=== PATIENT | male | born 1960 | race Caucasian/White ===

== ENCOUNTER 2020-02-25 11:22 | Emergency (ER) | payer SELFPAY ==
[2020-02-25 11:38] VITALS: BP 151/81; PULSE 70; RESP 16; TEMP 36.6; O2SAT 99
--- NOTE | 2020-02-25 11:39 | ED.URI ---
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 Patient states he has a 2-day history of definite fever 100.8 associated with sinus congestion, postnasal drip, myalgias with bitemporal headache. Patient states he was preceded 2 weeks ago by similar symptoms for which he was treated with a Z-Farrukh which ended 2 days ago. At that time he recalls definite loss of taste and smell for 3 to 4 days, for which he had a negative Covid test [which is advised to repeat]. No cough, shortness of breath, CP, sputum changes, vomiting/diarrhea, sneezing/wheezing. The patient agrees, in light of health emergency- in my medical judgement, only a personal was preferable to fully undress & examine the patient exhibiting potential COVID symptoms, in order to limit risk of infection. Related Data Home Medications Medication Instructions Recorded Confirmed lisinopril 30 mg PO DAILY 02/25/20 02/25/20 simvastatin 20 mg PO HS 02/25/20 02/25/20 Allergies Allergy/AdvReac Type Severity Reaction Status Date / Time No Known Allergies Allergy Verified 02/25/20 11:38 Review of Systems Review of Systems: Narrative: General/Constitutional: No weight loss,REPORTS fever Eyes: N0: Redness,discharge Ears/Nose/Throat: No: Epistaxis,ear discharge Respiratory: Denies: Hemoptysis Skin: No Lumps, eruption Hematologic: Denies: Petechiae/Purpura PMFSH Comments At time of signature, agree with nursing past medical, surgical, social and family history. There is no relevant family history pertinent to the presenting complaint Exam Narrative: Exam Narrative: General Appearance: Well appearing, Conjunctiva clear Nose: Rhinorrhea, Mucousal erythema Mouth/Throat: MM moist, Uvula midline, Pharyngeal erythema Supple, No adenopathy Respiratory: No respiratory distress, airway patent Musculoskeletal: Non tender, Warm, Dry Neurological: A&O x3, ,Normal affect Course Vital Signs Vital signs: Vital Signs Temperature 97.8 F 02/25/20 11:38 Pulse Rate 70 02/25/20 11:38 Respiratory Rate 16 02/25/20 11:38 Blood Pressure 151/81 H 02/25/20 11:38 Pulse Oximetry 99 02/25/20 11:38 Temperature 97.8 F 02/25/20 11:38 Pulse Rate 70 02/25/20 11:38 Respiratory Rate 16 02/25/20 11:38 Blood Pressure 151/81 H 02/25/20 11:38 Pulse Oximetry 99 02/25/20 11:38 Discharge Plan Discharge Clinical Impression: Upper respiratory infection Qualifiers: URI type: unspecified URI Qualified Code(s): J06.9 - Acute upper respiratory infection, unspecified Patient Disposition: Home, Self-Care Condition: Stable Instructions: Antibiotic Form, Sinusitis (ED) Prescriptions: New azelastine 137 mcg (0.1 %) aerosol,spray 137 mcg NASAL Q12H Qty: 30 RF: 0 amoxicillin-pot clavulanate [Augmentin] 875-125 mg tablet 1 tablet PO Q12H Qty: 14 RF: 0 tramadol 50 mg tablet 50 mg PO Q6H PRN (Reason: pain) Qty: 15 RF: 1 No Action lisinopril 20 mg Tablet 30 mg PO DAILY RF: 0 simvastatin 20 mg Tablet 20 mg PO HS RF: 0 Other Ambulatory Orders: SARS-CoV-2 RNA, Qual RT-PCR (Routine) Location: Determined by Patient Ordered By: Kyler Cotto Follow-up/Referrals: UNKNOWN,DOCTOR [Primary Care Provider] -
== END 2020-02-25 12:06 | disposition home or self-care (01) ==
PROVIDERS: Emergency Provider Emergency Medicine
DX: J06.9 Acute upper respiratory infection, unspecified (principal); Z20.828 Contact with and (suspected) exposure to other viral communicable diseases; E78.00 Pure hypercholesterolemia, unspecified; I10 Essential (primary) hypertension
CPT/HCPCS: 99203; G0463

== ENCOUNTER 2020-02-26 08:07 | Outpatient (NON) | payer OTHER, SELFPAY ==
[2020-02-26 19:04] LABS: SARS-CoV-2 RNA PCR Negative
== END 2020-02-26 08:08 ==
PROVIDERS: Visit Provider Emergency Medicine
DX: Z20.828 Contact with and (suspected) exposure to other viral communicable diseases (principal); J32.9 Chronic sinusitis, unspecified
CPT/HCPCS: 87635; C9803; U0003

== ENCOUNTER → 2021-04-09 11:01 | Outpatient (CLI) | payer OTHER, SELFPAY ==
--- NOTE | ~2021-04-09 | MR_ITS ---
EXAMINATION: MR knee RT wo con DATE: 04/09/2021 12:06 INDICATION: Unilateral primary osteoarthritis of the right knee with right knee pain TECHNIQUE: Magnetic resonance imaging (MRI) of the right knee was performed without intravenous contr ast. Sequences included coronal PD-weighted FSE, coronal PD-weighted FS FSE, sagittal T2-weighted FS E, sagittal PD-weighted FS FSE and axial PD weighted fat saturated FSE. COMPARISON: None. FINDINGS: Medial compartment: Complex medial meniscal tear including a radial component at the posterior horn as well as and longit udinal component extending into the posterior body. Deep chondral ulceration and fissuring without de generative subchondral changes at the central aspect of the medial tibial plateau and juxtaposed ante rior weightbearing medial femoral condyle. Lateral compartment: Complex tear of the body and posterior horn of the medial meniscus. Large region of full/near full-th ickness chondral ulceration involving the central portion of the anterior and posterior weightbearing lateral femoral condyle. There is fluid signal intensity subarticular eburnation minimal subarticula r increased signal at the central weightbearing lateral femoral condyle. Similar/near full-thickness chondral ulceration involving the posterior half of the lateral tibial plateau with early remodeling of the articular surface which demonstrates subtle concavity and underlying low signal intensity [place]. Moderate size marginal osteophytes are present. Patellofemoral compartment: Partial-thickness chondral ulceration with deep fissuring at the patellar apical ridge and medial shala f lateral facet. Additional extensive chondral ulceration with chondral surface irregularity througho ut the lateral trochlea, most severe laterally superolateral aspect of the lateral trochlea where the re is tiny focus of subarticular edema. Small to moderate-sized marginal osteophytes are present. Ligaments and tendons: Anterior and posterior cruciate ligaments are normal. The medial collateral ligament and fibular chris ateral ligament complex are normal. Patellar tendon is normal. Mild distal quadriceps tendinopathy. T he visualized medial and lateral hamstring tendons as well as the iliotibial band are normal. Fluid: Small right knee joint effusion with mild synovitis at the suprapatellar pouch. No intra-articular lo ose osteochondral bodies identified. There is a loose body within a large Clark's cyst which measures 9.0 x 4.0 x 3.3 cm. Additional 1.4 x 0.9 x 1.2 cm ganglion cyst arising from the lateral compartment extending into the lateral head of the gastrocnemius. Osseous/other: Small bone island at the lateral femoral condyle. No fracture or pathologic marrow replacing process. Mild fatty atrophy in the distal semimembranosus. IMPRESSION: 1. Complex medial and lateral meniscal tears. 2. Tricompartmental osteoarthritis with scattered moderate and high-grade chondromalacia, severe in t he lateral compartment, moderate in the patellofemoral compartment and mild in the medial compartment . 2. Small right knee joint effusion and large Clark's cyst. Reviewed, dictated and finalized at location B. [employer] IMPRESSION: 1. Complex medial and lateral meniscal tears. 2. Tricompartmental osteoarthritis with scattered moderate and high-grade chond romalacia, severe in the lateral compartment, moderate in the patellofemoral co mpartment and mild in the medial compartment. 2. Small right knee joint effusion and large Clark's cyst.
== END ==
PROVIDERS: Visit Provider Orthopaedic Surgery
DX: M17.11 Unilateral primary osteoarthritis, right knee (principal); M25.561 Pain in right knee; S83.271A Complex tear of lateral meniscus, current injury, right knee, initial encounter; S83.231A Complex tear of medial meniscus, current injury, right knee, initial encounter; M94.261 Chondromalacia, right knee; M25.461 Effusion, right knee; M71.21 Synovial cyst of popliteal space [Baker], right knee
CPT/HCPCS: 73721

== ENCOUNTER 2021-06-03 07:48 | Outpatient (CLI) | payer OTHER, SELFPAY ==
--- NOTE | 2021-06-03 10:46 | ECG_ITS ---
Measurements Intervals [place] Rate: 76 P: 62 ND: 158 QRS: 36 QRSD: 86 T: 49 QT: 371 QTc: 417 Interpretive Statements SINUS RHYTHM POSSIBLE LEFT ATRIAL ENLARGEMENT BORDERLINE ECG Electronically Signed On 06-03-2021 11:44:37 [employer] by López Chaidez D.O.
[2021-06-03 12:06] LABS: Basophils Absolute Auto 0.1 K/mm3 (0.0-0.1); Basophils Percent Auto 0.8 % (0.2-1.2); Eosinophils Absolute Auto 0.6 K/mm3 (0-0.3); Eosinophils Percent Auto 5.8 % (0-4.4); Hematocrit 44.9 % (42.0-52.0); Hemoglobin 15.2 g/dL (14.0-18.0); Immature Granulocyte Absolute 0.05 K/mm3 (0.00-0.031); Immature Granulocyte Percent A 0.5 % (0-0.5); Lymphocytes Absolute Auto 2.66 K/mm3 (0.9-3.2); Lymphocytes Percent Auto 25.7 % (18.3-44.2); Mean Corpuscular HGB Conc 33.9 g/dl (32-36); Mean Corpuscular Hemoglobin 30.5 pg (26-34); Mean Platelet Volume 9.5 fl (7.4-10.4); Monocytes Absolute Auto 0.7 K/mm3 (0.1-0.6); Monocytes Percent Auto 6.8 % (2.6-8.5); Neutrophils Absolute Auto 6.3 K/mm3 (1.3-6.7); Neutrophils Percent Auto 60.4 % (45.5-73.1); Platelet Count Result 265 k/mm3 (150-375); Red Blood Count 4.99 M/mm3 (4.6-6.20); Red Cell Distribution Width 12.7 % (11.5-14.5); White Blood Count 10.4 K/mm3 (4.5-10.0)
[2021-06-03 12:18] LABS: Urine Cotinine NEGATIVE
[2021-06-03 12:25] LABS: Albumin Level 4.8 g/dL (3.5-5.1); Hemoglobin A1C 5.5 % (<5.7)
[2021-06-03 12:29] LABS: Anion Gap 7 mmol/L (8-16); Blood Urea Nitrogen 24 mg/dL (9-20); Calcium 9.8 mg/dL (8.4-10.2); Carbon Dioxide 28 mmol/L (22-30); Chloride 104 mmol/L (98-107); Estimated Glomerular Filt Rate > 60; Glucose 91 mg/dL (65-110); Potassium 4.2 mmol/L (3.4-5.0); Sodium 139 mmol/L (137-145)
== END 2021-06-03 07:49 | disposition home or self-care (01) ==
PROVIDERS: Anesthesiology; Visit Provider Orthopaedic Surgery
DX: Z01.818 Encounter for other preprocedural examination (principal); M17.11 Unilateral primary osteoarthritis, right knee; Z79.899 Other long term (current) drug therapy
CPT/HCPCS: 36415; 80048; 80307; 82040; 83036; 85025; 86850; 86900; 86901; 87081; 93005

== ENCOUNTER 2021-06-16 01:20 | Day surgery (SDC) | payer OTHER, SELFPAY ==
--- NOTE | 2021-06-03 10:00 | PC.NURSE ---
Addendum entered by Chio Sifuentes RN 06/03/21 10:37: PT INSTRUCTED TO STOP ALEVE INSTRUCTED BY DR. JARA Original Note: Report to the Outpatient Waiting Room, entrance under the rescue pavilion located off [facility], at time _0900_ on date _06/16/21_. OR Time: _1100_. - You will be asked a series of questions to screen for COVID 19 for your protection. - A mask is required within the hospital. - No visitors are allowed at this time. Preoperative COVID Testing Requirements: _NONE_ Patients may have clear liquids (water, carbonated beverages, clear teas, apple juice) until 3 hours prior to surgery with a maximum of 20 ounces. (0800 AM) - No food from midnight until time of surgery Take the following medications with a SIP of water the morning of surgery: _NONE__ Medications to discontinue per DR. JARA - __ASPIRIN INSTRUCTED__ Medications to discontinue per ANESTHESIA - _ALL VITAMINS AND SUPPLEMENTS, 3 DAYS PRIOR TO SURGERY LAST DOSE TO BE TAKEN ON 06/12/21 Please no make-up, nail tajik, hairspray, perfume, deodorant, or body powder the day of surgery. No jewelry (including any body piercings) or valuables the day of surgery, leave them at home. Please take a shower or bath the night before, or the morning of, surgery with an antibacterial soap. Wear comfortable, loose fitting clothing. Children are encouraged to wear pajamas. - Jewelry must be removed prior to entering the operating room. Rings and piercings that are not removed may be cut off. - The hospital will not accept responsibility for valuables. - Please leave all valuables, including medications, at home the day of surgery. If you are going home after surgery, a licensed steam train driver must drive you home. - NO public transportation without another adult. - We recommend that an adult stay with you for 24 hours following discharge. - We also recommend that you do not drive, make important decision, drink alcoholic beverages, or take any drugs that were not prescribed by your health care provider for at least 24 hours after your discharge time. Follow any additional instructions given to you from DR. JARA. Instructions given to ____PT and asked if any additional questions and then verbalized understanding. Patient advised to call surgeon office or pre surgery nurse liaisonRUDOLPH [phone] if any additional questions.
[2021-06-03 10:30] VITALS: BP 150/80; PULSE 80; RESP 20; TEMP 36.8; O2SAT 94; BMI 35.3
--- NOTE | 2021-06-15 12:18 | WPDANESEPPF ---
Anes - Initial Pre Proc Eval Procedure: Operation Date: 06/16/21 07:30 Proposed Procedures p Right Total Knee Arthroplasty - Robbie Medellin MD Date/Time: 06/15/21 12:18 Surgeon: Robbie Medellin MD Pre Op Diagnosis: Osteoarthritis Right Knee Patient Data Age: 61 Gender: M Height: 1.83 m Weight: 118.1 kg Last Vital Signs Temp 36.8 C 06/03/21 10:30 Pulse 80 06/03/21 10:30 Resp 20 06/03/21 10:30 BP 150/80 H 06/03/21 10:30 Pulse Ox 94 06/03/21 10:30 Allergies Allergy/AdvReac Type Severity Reaction Status Date / Time codeine AdvReac Mild DIZZY/SWEAT Verified 06/16/21 06:23 ING Home Medications Medication Instructions Recorded Confirmed Type lisinopril 30 mg PO DAILY 02/25/20 06/16/21 History simvastatin 20 mg PO HS 02/25/20 06/09/21 History hydrochlorothiazide 25 mg tablet 25 mg PO QAM 03/03/21 06/16/21 History ascorbic acid (vitamin C) [Vitamin 500 mg PO BID 06/03/21 06/16/21 History C] aspirin [Aspir-81] 81 mg PO DAILY 06/03/21 06/16/21 History cholecalciferol (vitamin D3) 1 tab-cap DAILY 06/03/21 06/16/21 History naproxen sodium [Aleve] 220 mg PO BID PRN 06/03/21 06/16/21 History omega-3 fatty acids [Fish Oil] 1 cap PO DAILY 06/03/21 06/16/21 History vitamin B complex 1 cap DAILY 06/03/21 06/09/21 History zinc-magnesium aspart-vit B6 [Zinc 1 cap PO DAILY 06/03/21 06/09/21 History Magnesium Aspartate] rivaroxaban 10 mg tablet 10 mg PO DAILY #14 tablet 06/09/21 06/16/21 Rx Patient hx anesthesia problems: none Family hx anesthesia problems: none Results Review: All pre-operative results and documents have been reviewed as part of the pre-operative evaluation. [facility] Past Medical History Medical History (Updated 06/15/21 @ 12:19 by Sander Alfaro MD) CAD (coronary artery disease) Hypertension Obesity Osteoarthritis of right knee Surgical History Surgical History (Updated 06/15/21 @ 12:19 by Sander Alfaro MD) History of coronary artery stent placement Family History Family History Mother Hypertension Bowel cancer Social History Social History Smoking status: Never smoker Second hand tobacco smoke exposure: No Additional smoking assessment comments: PT DENIES ALL FORMS OF TOBACCO USE Alcohol intake: never Drinks per week: 1 Substance use: current Substance use type: marijuana Other substance usage details: CBD @ NOC Last use: 06/02/21 Living arrangements: with family 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 Informed Consent: The patient's anesthetic plan and its attendant risks and benefits were discussed with the patient/family/POA. Questions were solicited and answers provided to the satisfaction of the patient/family/POA.
--- NOTE | 2021-06-15 12:19 | WPDANESPNB ---
Anes - Peripheral Nerve Block Date/Time: 06/15/21 12:19 I have discussed with the patient/family/POA the placement of a peripheral nerve block for post-operative pain management, including associated risks, benefits, complications, and side effects. Alternative methods of post-operative analgesia were detailed. Questions were solicited and answers provided to the satisfaction of the patient/family/POA. Time-Out: A pre-procedural Time-Out was completed immediately before starting the procedure and confirmed: Patient Identification, Site, Procedure, Patient Position and the Availability of Requisite Equipment. Clinical Indications: Acute post-operative pain management requested by the operative surgeon. Nerve Block Insertion Note Anes-nerve block: adductor canal right Patient position: supine Skin prep: chlorhexidine Needle: 22 gauge, stimulating, insulated echogenic needle. Needle length: 80 mm Technique: ultrasound Technique comment: in plane Injectate: bupivacaine 0.5% with epi 5 mcg/ml (30cc) Observations: tolerated well Complications: none Procedure start time:: 715 Procedure end time:: 720
[2021-06-16] VITALS (15 sets, daily range): BP systolic 120–148; BP diastolic 71–97; PULSE 76–94; RESP 10–20; TEMP 36.7–37.3; O2SAT 94–99; BMI 34.9
--- NOTE | ~2021-06-16 | XR_ITS ---
EXAMINATION: XR knee RT 2V DATE: 06/16/2021 10:24 INDICATION: Right knee arthroplasty. Postop. TECHNIQUE: 2 views of right knee were obtained. COMPARISON: Right knee radiographs 04/14/2021 FINDINGS: There is a total right knee arthroplasty with patellar resurfacing in near-anatomic alignme nt. No fracture. There is gas in the knee joint and soft tissues, consistent with recent surgery. IMPRESSION: 1. Total right knee arthroplasty in near-anatomic alignment. Reviewed, dictated and finalized at location A. [facility]
[2021-06-16] MEDS: ACETAMINOPHEN 500 MG TABLET 1000 MG PO (06:28)
[2021-06-16] MEDS: LACTATED RINGERS 1,000 ML 30 ML IV CONT ×2 (06:35→10:12)
[2021-06-16] MEDS: TRANEXAMIC ACID 1,000MG/ISO100 1,000 MG/100 ML BAG 200 MG IVPB (06:40)
--- NOTE | 2021-06-16 07:11 | WPDHPUPDATE1 ---
History and Physical Update Update Date/Time: 06/16/21 07:11 History and Physical has been reviewed, including an updated exam of the patient. There are NO changes in the patient's condition. Risks, benefits, and alternatives have been discussed and questions answered. Patient agrees to proceed with procedure.
[2021-06-16] MEDS: ceFAZolin 2 GM/D5W 50 ML 2 GM/50 ML BAG IVPB ×3 (07:25→22:57)
[2021-06-16] MEDS: ceFAZolin SODIUM 1 GM VIAL IV PUSH (09:20)
--- NOTE | 2021-06-16 10:04 | W.PM.PROC2 ---
Procedure Note - Detailed Date of Procedure 06/16/21 Pre-op Diagnosis Osteoarthritis Right Knee Post-op Diagnosis same Procedure Performed Right total knee replacement Surgeon Robbie Medellin MD Composite Science Teacher Juhi Grier Anesthesia general and regional Description of Procedure The patient was identified and proper site identified. In the preop holding area the anesthesia team performed a right sub sartorial block after which the patient was taken to the operating room and transferred to the OR table positioning supine taking care to pad the torso and extremities. After general anesthetic induction and intubation, a nonsterile tourniquet was placed high on the right thigh. The right lower extremity was prepped and draped in the usual sterile fashion. The extremity was exsanguinated and with the knee flexed tourniquet was inflated to 300 mmHg remaining up for approximately 74 minutes. An anterior midline incision was made and a modified medial parapatellar approach was used. Infra and suprapatellar fat pads were excised. Patella was resected leaving 17 mm thickness and prepared for the size 31 round three peg component. Using the intramedullary guide the distal femur was cut in the proper orientation for the size 65 femoral component. Using the extramedullary guide the tibia was cut perpendicular to the long axis protecting collateral ligaments and popliteal structures. It was sized to a 75. Flexion and extension gaps were balanced. Trial reduction was undertaken and the weight-bearing line was noted to passed through the center of the joint. Proximal tibia was drilled and punched in the proper orientation for the real component. Trial components were removed. The bone surfaces were washed with pulsatile lavage and dried. The real components were cemented simultaneously. The knee was held in extension and the patella held clamped until the cement had cured. Excess cement was removed from the joint. After trialing it was determined that the 10 mm insert gave full range of motion from 0-120 degrees of flexion and the patella tracked in the femoral groove with no lift-off. After final lavage the joint the real 10 ASE poly insert was placed and secured with a locking bar. A Betadine and saline wash was placed into the wound and allowed to sit for approximately 3 minutes and then evacuated. Periarticular tissues were infiltrated with 60 cc of the arthroplasty solution. Surgicel powder was used deep and superficial to the extensor mechanism. The extensor mechanism was repaired with #2 Vicryl suture and 0 looped PDS suture. Subcu was reapproximated with 3-0 Monocryl and 2-0 Stratafix with tissue adhesive for the skin. A sterile dressing was applied. He tolerated the procedure well, was awakened and extubated, transferred to the bed and was taken to recovery area in stable condition. There were no known intraoperative complications. Perioperative antibiotics were administered. Estimated Blood Loss 150 Tourniquet Time 74 Drains No Packing No Pathology none sent Complications No immediate complications Condition stable Disposition PACU
[2021-06-16] MEDS: fentaNYL CITRATE INJ (*CRX) 100 MCG/2 ML VIAL 25 MCG IV PUSH ×8 (10:35→11:34)
--- NOTE | 2021-06-16 10:39 | SUR.PHASEI ---
1030 Juhi redman was accidentally stuck by a needle while in the or. a needle stick panel was drawn and sent to the lab, employee health nurse was notified, and patient also is aware.
[2021-06-16 11:18] LABS: Hepatitis B Surface Antigen Negative (Negative)
[2021-06-16 11:35] LABS: HIV 1/2 Ab P24 Ag Result Negative (Negative); Hepatitis C Virus Antibody Negative (Negative)
--- NOTE | 2021-06-16 12:55 | ADMGEN ---
This patient, Anselmo Henson, was admitted to [facility]. Patient/family oriented to hospital policies and general routines including ID bracelet, bed and alarms, visiting hours, pain management, procedures, bathroom and other care routines, personal items, smoking policy, room service/diet, and visiting hours. Information on how to activate the Rapid Response Team has been discussed. Patient/Family are encouraged to report perceived risks to care and to ask questions if they do not understand what they are told or what they should do.
[2021-06-16] MEDS: SODIUM CHLORIDE 0.9% IV 1,000 ML 125 ML IV CONT (13:02)
[2021-06-16] MEDS: oxyCODONE/ACETAMINOPHEN (*CRX) 5-325 MG TABLET 1 TABLET PO ×3 (13:42→20:53)
[2021-06-16] MEDS: KETOROLAC 15 MG/ML VIAL (*BKC) IV PUSH ×2 (14:55→20:53)
[2021-06-16] MEDS: ASCORBIC ACID 500 MG TABLET PO (17:23)
[2021-06-16] MEDS: SENNA/DOCUSATE SODIUM TABLET 2 TAB PO (17:23)
[2021-06-16] MEDS: SIMVASTATIN 20 MG TABLET PO (20:53)
[2021-06-16] MEDS: FAMOTIDINE 20 MG TABLET PO (20:53)
[2021-06-17] MEDS: oxyCODONE/ACETAMINOPHEN (*CRX) 5-325 MG TABLET 1 TABLET PO ×3 (00:45→08:20)
[2021-06-17 01:23] VITALS: BP 118/60; PULSE 87; RESP 18; TEMP 37.3; O2SAT 97
[2021-06-17] MEDS: KETOROLAC 15 MG/ML VIAL (*BKC) IV PUSH ×2 (03:02→08:19)
[2021-06-17 05:23] VITALS: BP 111/47; PULSE 84; RESP 18; TEMP 36.9; O2SAT 96
[2021-06-17 06:00] VITALS: RESP 18
[2021-06-17] MEDS: ceFAZolin 2 GM/D5W 50 ML 2 GM/50 ML BAG IVPB (06:35)
[2021-06-17 07:43] VITALS: PULSE 90; RESP 18; O2SAT 98
--- NOTE | 2021-06-17 07:51 | PM.DS ---
DS: Admitting Diagnosis Discharge Date June 17, 2021 Admitting Diagnosis Right knee osteoarthritis DS: Discharge Diagnosis Discharge Diagnosis (1) History of total right knee replacement: Code(s): Z96.651 - Presence of right artificial knee joint Status: Acute Assessment and Plan: 61-year-old male postop day 1 after right total knee replacement. Overall doing well and tolerated therapy yesterday. Assessment of the incision site shows a clean and dry surgical dressing. He will follow up in our office in 2 weeks for wound check. He was encouraged to call our office with any further questions or concerns. DS: Summary Hospital Course Reason for hospitalization: Observation after outpatient procedure Hospital Course: 61-year-old male admitted for observation after right knee total arthroplasty. He was able to receive therapy yesterday and will do so again today prior to discharge. Examination today was unremarkable. Status at Discharge Functional status at discharge: uses cane/walker Overall status at discharge: patient is progressing back to baseline Time Spent with Patient Time attestation: Total time spent providing and/or coordinating discharge services: Time spent: Less than 30 minutes Exam Const: General: comfortable and no acute distress Limitations: no limitations Eyes: General: appearance normal, both eyes and all related structures Resp: Effort & Inspection: normal respiratory effort GI: Inspection: non-distended GI Palp: No Tenderness to palpation present (GI) Neuro: Sensory Exam: normal sensation Extrem: Other: Exam of the right knee reveals a clean and dry surgical dressing. With effort, he is able to fully extend the knee. No numbness or tingling into the lower extremity. He is able to plantar and dorsiflex the foot without difficulty. Psych: Mental Status: mental status grossly normal DS: Data Data Completed and Pending Labs on day of discharge: Labs from last 24 hours 06/16/21 10:27 Hep Bs Antigen Negative Hepatitis C Ab Screen Negative HIV 1&2 Ab/P24 Ag 4thGn Negative Discharge Plan Discharge Attending physician on discharge: Robbie Medellin Discharging Clinician: Shlomo Ross Anticipated Discharge Date/Time: 06/17/21 12:00 Patient Disposition: Home, Self-Care Activity: follow weight bearing status and other - see discharge instructions Diet: as tolerated and regular Wound Care Instructions: other - see discharge instructions Discharge Instructions: 3 times daily for 20 minutes each time, reclining in bed with ice packs over the incision and a pillow underneath the calf of the affected leg, not under the knee. Your wound is glued so it is okay to get into the shower and get the wound wet in two days. Be sure to read through all the information that came from a my office and the hospital. Most of the answers you will need can be found that material. Call the office with any questions that you cannot find answers to, or concerns you may have. After the Xarelto is completed, start taking one coated 325 mg aspirin daily and do this for four more weeks. You will hold your daily aspirin until the full 325 mg aspirin is completed. Please call [facility] at as soon as possible to arrange for/verify your follow-up appointment to be seen in 2 weeks. Also, call the office with any orthopedic/surgical related questions prior to follow-up. Be sure to get up and move around several times daily but do not overdo it. Take the arthritis formula Tylenol 650 mg tablet on an 8 hour schedule. A good 8 hour schedule is: 6:00 a.m., 2:00 p.m., 10:00 p.m. you may take the prescribed pain medication along with the Tylenol; it is not to be taken instead of the Tylenol. I would like for you to take the Tylenol on a schedule for 2-3 weeks. Use the laxative Senekot S twice daily for 2 weeks after discharge while taking the prescription p
[2021-06-17] MEDS: polyethylene glycoL 3350 17 GM POWD.PACK PO (08:16)
[2021-06-17] MEDS: lisinopriL 10 MG TABLET 30 MG PO (08:18)
[2021-06-17] MEDS: hydroCHLOROthiazide 25 MG TABLET PO (08:19)
[2021-06-17] MEDS: SENNA/DOCUSATE SODIUM TABLET 2 TAB PO (08:19)
[2021-06-17] MEDS: OMEGA 3 POLYUNSAT FATTY ACIDS 1 GM CAP PO (08:19)
[2021-06-17] MEDS: ASCORBIC ACID 500 MG TABLET PO (08:20)
[2021-06-17] MEDS: RIVAROXABAN 10 MG TABLET PO (08:20)
[2021-06-17] MEDS: FAMOTIDINE 20 MG TABLET PO (08:20)
[2021-06-17 08:42] VITALS: BP 136/73; PULSE 90; RESP 18; TEMP 37.1; O2SAT 98
--- NOTE | 2021-06-17 10:29 | PC.NURSE ---
Discharge orders from the physician are in for the patient. PT/OT and care coordination have seen the patient and cleared him for discharge. Discharge packet and instructions reviewed with patient. Patient had no further questions at this time. Patient was discharged in the care of his on 06/17/21 at 1105. Patient was alert/oriented and ambulating safely at the time of discharge.
== END 2021-06-17 11:05 | disposition home or self-care (01) | DRG 470 ==
LOC: ANHSURGERY 09:54 → ANHSUROVER 06-17 08:19
PROVIDERS: Visit Provider Orthopaedic Surgery
PROC: (CPT 27447; principal; 2021-06-16 07:30)
DX: M17.11 Unilateral primary osteoarthritis, right knee (principal); G89.18 Other acute postprocedural pain; I25.10 Atherosclerotic heart disease of native coronary artery without angina pectoris; I10 Essential (primary) hypertension; E66.9 Obesity, unspecified; Z68.35 Body mass index [BMI] 35.0-35.9, adult; Z95.5 Presence of coronary angioplasty implant and graft; Z79.01 Long term (current) use of anticoagulants; Z79.82 Long term (current) use of aspirin; F12.90 Cannabis use, unspecified, uncomplicated; Z11.4 Encounter for screening for human immunodeficiency virus [HIV]
CPT/HCPCS: 64447; 27447; 36415; 73560; 86703; 86803; 87340; 97110; 97116; 97161; 97165; 97530; 97535; A9270; C1713; C1776; G0432; J0171; J0690; J1100; J1885; J2250; J2270; J2405; J2704; J2795; J3010; J7030; J7120

== ENCOUNTER 2021-07-07 15:44 | Inpatient (IN) | payer OTHER, SELFPAY ==
[2021-07-07] VITALS (12 sets, daily range): BP systolic 118–148; BP diastolic 56–95; PULSE 79–104; RESP 10–19; TEMP 35.8–36.7; O2SAT 96–100; BMI 32.8
--- NOTE | 2021-07-07 14:20 | WPDANESEPPF ---
Anes - Initial Pre Proc Eval Procedure: Operation Date: 07/07/21 15:00 Proposed Procedures p Superficial Washout, Possible Deep Washout, Possible Poly Exchange Right Knee - Robbie Medellin MD <Sander Alfaro MD - Last Filed: 07/09/21 15:09> Date/Time: 07/07/21 14:20 <Sander Alfaro MD - Last Filed: 07/09/21 15:09> Surgeon: Robbie Medellin MD <Sander Alfaro MD - Last Filed: 07/09/21 15:09> Pre Op Diagnosis: fall, s/p total knee arthroplasty <Sander Alfaro MD - Last Filed: 07/09/21 15:09> Patient Data Age: 61 Gender: M Height: Weight: <Sander Alfaro MD - Last Filed: 07/09/21 15:09> Allergies Allergy/AdvReac Type Severity Reaction Status Date / Time codeine AdvReac Mild DIZZY/SWEAT Verified 07/07/21 13:43 ING <Sander Alfaro MD - Last Filed: 07/09/21 15:09> Home Medications Medication Instructions Recorded Confirmed Type lisinopril 30 mg PO DAILY 02/25/20 07/07/21 History simvastatin 20 mg PO HS 02/25/20 07/07/21 History hydrochlorothiazide 25 mg tablet 25 mg PO QAM 03/03/21 07/07/21 History ascorbic acid (vitamin C) [Vitamin 500 mg PO BID 06/03/21 07/07/21 History C] cholecalciferol (vitamin D3) 1 tab-cap DAILY 06/03/21 07/07/21 History omega-3 fatty acids 1 cap PO DAILY 06/03/21 07/07/21 History vitamin B complex 1 cap DAILY 06/03/21 07/07/21 History zinc-magnesium aspart-vit B6 1 cap PO DAILY 06/03/21 07/07/21 History cyclobenzaprine 10 mg tablet 10 mg PO TID PRN #20 tablet 06/23/21 07/07/21 Rx aspirin 325 mg tablet 325 mg PO DAILY 07/07/21 07/07/21 History <Sander Alfaro MD - Last Filed: 07/09/21 15:09> Patient hx anesthesia problems: none <Soren Edgar MD - Last Filed: 07/07/21 17:42> Family hx anesthesia problems: none <Soren Edgar MD - Last Filed: 07/07/21 17:42> Results Review: All pre-operative results and documents have been reviewed as part of the pre-operative evaluation. <Sander Alfaro MD - Last Filed: 07/09/21 15:09> [facility] Past Medical History Medical History: Medical History (Updated 07/08/21 @ 12:03 by Robbie Medellin MD) Hypertension Obesity Osteoarthritis of right knee Postoperative wound dehiscence right knee <Sander Alfaro MD - Last Filed: 07/09/21 15:09> Surgical History Surgical History: Surgical History (Updated 07/08/21 @ 12:03 by Robbie Medellin MD) Dehiscence of wound of skin Debridement and closure July 07, 2021 History of coronary artery stent placement <Sander Alfaro MD - Last Filed: 07/09/21 15:09> Family History Family History: Family History Mother Hypertension Bowel cancer <Sander Alfaro MD - Last Filed: 07/09/21 15:09> Social History Social History: Social History (Updated 07/08/21 @ 10:22 by ANU George) Social History: 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 Patient's surrogate will be his Angelina who he has been to for about a year and a half. He does have 4 daughters and no pets at home. He is currently a full code. 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
--- NOTE | 2021-07-07 16:13 | ER_ITS ---
This report was moved to the correct visit, on 07/07/21. Original report was signed by Vianey Phillip PA-C 07/07/21 [id number] and co-signed by Salvador Amanda MD 07/07/212110. HPI - Extremity Injury (Lower) General Chief Complaint: Wound/Laceration Stated Complaint: pre surgical Time Seen by Provider: 07/07/21 15:47 Source: patient Mode of arrival: ambulatory (On crutches) Limitations: no limitations History of Present Illness HPI Narrative: This is a 61-year-old male that presents to the emergency department for right knee injury sustained just prior to arrival. Reports he is 3 weeks postop from a total knee replacement. Reports he tripped and fell onto the right knee. His wound has opened up. His orthopedic surgeon evaluated him and would like to take him to the OR for further management. Denies any other injuries. Denies numbness. Related Data Home Medications Medication Instructions Recorded Confirmed lisinopril 30 mg PO DAILY 02/25/20 07/07/21 simvastatin 20 mg PO HS 02/25/20 07/07/21 hydrochlorothiazide 25 mg tablet 25 mg PO QAM 03/03/21 07/07/21 ascorbic acid (vitamin C) [Vitamin 500 mg PO BID 06/03/21 07/07/21 C] cholecalciferol (vitamin D3) 1 tab-cap DAILY 06/03/21 07/07/21 omega-3 fatty acids 1 cap PO DAILY 06/03/21 07/07/21 vitamin B complex 1 cap DAILY 06/03/21 07/07/21 zinc-magnesium aspart-vit B6 1 cap PO DAILY 06/03/21 07/07/21 aspirin 325 mg tablet 325 mg PO DAILY 07/07/21 07/07/21 Allergies Allergy/AdvReac Type Severity Reaction Status Date / Time codeine AdvReac Mild DIZZY/SWEAT Verified 07/07/21 13:43 ING Review of Systems Review of Systems: CONSTITUTIONAL: Denies fever MUSCULOSKELETAL: Reports joint pain, and myalgia. NEUROLOGIC: Denies numbness All systems reviewed & are unremarkable except as noted in HPI and below PMFSH Past Medical History Medical History (Updated 07/07/21 @ 16:16 by Vianey Phillip PA-C) CAD (coronary artery disease) Hypertension Obesity Osteoarthritis of right knee Postoperative wound dehiscence right knee Surgical History Surgical History (Updated 07/07/21 @ 16:16 by Vianey Phillip PA-C) History of coronary artery stent placement Family History Family History Mother Hypertension Bowel cancer Social History Social History Smoking status: Never smoker Second hand tobacco smoke exposure: No Additional smoking assessment comments: PT DENIES ALL FORMS OF TOBACCO USE Alcohol intake: current Drinks per week: 1 Substance use: current Substance use type: marijuana Other substance usage details: GUMMIES DAILY Last use: 06/02/21 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 HEAD: Normocephalic, atraumatic. EYES: EOMI. CHEST: Clear to auscultation. No respiratory distress. No wheezes rales or rhonchi HEART: Regular rate and rhythm. No murmur heard. Normal peripheral pulses. EXTREMITIES: Right knee with wound dehiscence of 12 cm linear vertical surgical wound. No surrounding erythema or abnormal drainage. Normal DP pulses. Normal sensation SKIN: Warm, dry, no rash. NEURO: No focal deficits. Alert and oriented x3. PSYCH: Normal mood and affect Course Consultations Consultation #1: Spoke with Dr. Medellin about patient and workup who will take patient to
--- NOTE | 2021-07-07 16:34 | WPDHPUPDATE1 ---
History and Physical Update Update Date/Time: 07/07/21 16:34 History and Physical has been reviewed, including an updated exam of the patient. There are NO changes in the patient's condition. Risks, benefits, and alternatives have been discussed and questions answered. Patient agrees to proceed with procedure.
[2021-07-07 16:47] LABS: Basophils Absolute Auto 0.1 K/mm3 (0.0-0.1); Basophils Percent Auto 0.5 % (0.2-1.2); Eosinophils Absolute Auto 0.4 K/mm3 (0-0.3); Eosinophils Percent Auto 3.1 % (0-4.4); Hematocrit 34.6 % (42.0-52.0); Hemoglobin 11.3 g/dL (14.0-18.0); Immature Granulocyte Absolute 0.05 K/mm3 (0.00-0.031); Immature Granulocyte Percent A 0.4 % (0-0.5); Lymphocytes Absolute Auto 2.45 K/mm3 (0.9-3.2); Lymphocytes Percent Auto 21.8 % (18.3-44.2); Mean Corpuscular HGB Conc 32.7 g/dl (32-36); Mean Corpuscular Hemoglobin 30.1 pg (26-34); Monocytes Absolute Auto 0.7 K/mm3 (0.1-0.6); Monocytes Percent Auto 6.4 % (2.6-8.5); Neutrophils Absolute Auto 7.6 K/mm3 (1.3-6.7); Neutrophils Percent Auto 67.8 % (45.5-73.1); Platelet Count Result 510 k/mm3 (150-375); Red Blood Count 3.76 M/mm3 (4.6-6.20); White Blood Count 11.2 K/mm3 (4.5-10.0)
[2021-07-07] MEDS: LACTATED RINGERS 1,000 ML 30 ML IV CONT ×2 (17:01→18:23)
[2021-07-07] MEDS: ceFAZolin 2 GM/D5W 50 ML 2 GM/50 ML BAG IVPB (17:01)
--- NOTE | 2021-07-07 18:30 | WPDANESPNB ---
Anes - Peripheral Nerve Block Date/Time: 07/07/21 18:30 I have discussed with the patient/family/POA the placement of a peripheral nerve block for post-operative pain management, including associated risks, benefits, complications, and side effects. Alternative methods of post-operative analgesia were detailed. Questions were solicited and answers provided to the satisfaction of the patient/family/POA. Time-Out: A pre-procedural Time-Out was completed immediately before starting the procedure and confirmed: Patient Identification, Site, Procedure, Patient Position and the Availability of Requisite Equipment. Clinical Indications: Acute post-operative pain management requested by the operative surgeon. Nerve Block Insertion Note Anes-nerve block: adductor canal right Patient position: supine Skin prep: chlorhexidine Needle: 22 gauge, stimulating, insulated echogenic needle. Needle length: 80 mm Technique: ultrasound Injectate: dexamethasone (mg) (4) and bupivacaine 0.25% with epi 5 mcg/ml (30ml) Observations: tolerated well Complications: none Procedure start time:: 1827 Procedure end time:: 1829
--- NOTE | 2021-07-07 18:30 | W.PM.PROC2 ---
Procedure Note - Detailed Date of Procedure 07/07/21 Pre-op Diagnosis Traumatic wound dehiscence status post right total knee replacement Post-op Diagnosis Same Procedure Performed Superficial washout and closure right knee wound Surgeon Robbie Medellin MD Violin Maker Hand Argelia Morris Anesthesia General Description of Procedure The patient was identified and proper site identified. He was taken to the operating room and transferred to the OR table placing him supine taking care to properly pad and position is torso extremities. After general anesthetic induction and intubation, a nonsterile tourniquet was placed high in the right thigh but was not used. The right lower extremity was prepped and draped in usual sterile fashion. The entirety of the wound had dehisced. The subcutaneous suture was all removed and the arthrotomy a inspected. There was no communication with the deeper tissues. The subcutaneous space was debrided extensively and then irrigated with 6 liters of sterile saline as well as gently scrubbed with a Betadine solution. The skin edges were freshened up and then reapproximated with a combination of 2-0 nylon rick stitches as well as 3-0 Monocryl subcuticular stitches and 3-0 nylon interrupted stitches. An 8th inch Hemovac drain was left in the subcutaneous space taking care not to entrap it during the closure. It was connected to the collection device and a sterile dressing was applied. He tolerated the procedure well. He was awakened, extubated taken to recovery area in stable condition. There were no known intraoperative complications. Estimated blood loss 50 milliliters. He received perioperative antibiotics. Estimated Blood Loss 50 Tourniquet Time 0 Drains Yes (1/8 inch Hemovac in the subcutaneous space) Packing No Pathology None sent Complications No immediate complications Condition Stable Disposition PACU
--- NOTE | 2021-07-07 20:58 | ADMGEN ---
This patient, Anselmo Henson, was admitted to Medical Room 348-01. Patient/family oriented to hospital policies and general routines including ID bracelet, bed and alarms, visiting hours, pain management, procedures, bathroom and other care routines, personal items, smoking policy, room service/diet, and visiting hours. Information on how to activate the Rapid Response Team has been discussed. Patient/Family are encouraged to report perceived risks to care and to ask questions if they do not understand what they are told or what they should do.
[2021-07-07] MEDS: ASPIRIN 325 MG ENTERIC TABLET PO (21:56)
[2021-07-07] MEDS: FAMOTIDINE 20 MG TABLET PO (21:56)
[2021-07-07] MEDS: SODIUM CHLORIDE 0.9% IV 1,000 ML 125 ML IV CONT (21:56)
[2021-07-08] VITALS (7 sets, daily range): BP systolic 108–138; BP diastolic 64–74; PULSE 66–82; RESP 16–18; TEMP 35.7–36.6; O2SAT 94–98
[2021-07-08] MEDS: ceFAZolin 2 GM/D5W 50 ML 2 GM/50 ML BAG IVPB ×3 (00:30→17:30)
[2021-07-08] MEDS: KETOROLAC 15 MG/ML VIAL (*BKC) IM ×4 (00:31→17:30)
--- NOTE | 2021-07-08 08:45 | PM.IMCN ---
Assessment and Plan Assessment and plan (1) Postoperative wound dehiscence: Qualifiers: Encounter type: initial encounter Qualified Code(s): T81.31XA - Disruption of external operation (surgical) wound, not elsewhere classified, initial encounter Code(s): T81.31XA - Disruption of external operation (surgical) wound, not elsewhere classified, initial encounter Status: Acute Assessment and Plan: Reported fall and surgical wound opened Status post knee replacement on 06/16/21 Dr. Medellin to manage care POD [address] Surgical procedure performed 07/07/21 Cefazolin 2gm x 9 bags Toradol 15mg IM Q6h, oxycodone 5mg PO Q4Hr, Acetaminophen 650mg PO Q6Hr Bowel: Bisacodyl 10mg Rectal Daily PRN, Senokot 2 tabs PO BID, Miralax PO QAM DVT aspirin 325mg PO Q12hr PT/OT per ortho (2) History of total right knee replacement: Code(s): Z96.651 - Presence of right artificial knee joint Status: Acute Assessment and Plan: Knee replacement from 06/16/21 PT/OT per ortho (3) History of coronary artery stent placement: Code(s): Z95.5 - Presence of coronary angioplasty implant and graft Status: Acute Assessment and Plan: Continue Aspirin 325mg PO daily Continue simvastatin (4) Obesity: Code(s): E66.9 - Obesity, unspecified Status: Acute Assessment and Plan: Blood Collector consult lifestyle changes and education diet planning Lost 15-20lbs (5) Hypertension: Code(s): I10 - Essential (primary) hypertension Status: Inactive Assessment and Plan: Current BP is 108/64 Hold home therapy for now, Lisinopril 30mg PO Daily, HCTZ 25mg PO Qam Restart home medications as appropriate Trend blood pressure Adjust therapy as indicated (6) Hyperlipidemia: Code(s): E78.5 - Hyperlipidemia, unspecified Status: Acute Assessment and Plan: Continue home simvastatin HPI Data of Consult Consult date: 07/08/21 Requesting Physician: Robbie Medellin MD Primary Care Provider: UNKNOWN,DOCTOR Consult Narrative Narrative: Anselmo Henson is a 61 year old male with a past medical history of HLD, HTN, and CAD who had a knee replacement on 06/17/21. Patient stated he was walking into his house after the PT appointment and he had something in his hands and he tripped and fell on his knee. At that point he noticed that his wound had dehisced which prompted him to come back to the ED. patient also stated that he had just seen the nurse practitioner at Dr. Medellin's office prior to the fall as well. It was reported that his incision looked good and that he should have a small scar that would be hardly noticeable. Patient also stated that he has not been taking his blood pressure medicines and he has been taking his blood pressure every day which has been running about 108/71. Patient stated that he was going to follow-up with his primary care provider about decreasing his meds or getting off of them. Patient also stated that he has lost weight about 15-20 lbs purposefully. Patient denies any other problems including chest pain, shortness of breath, nausea, vomiting, diarrhea, constipation, weakness, fatigue, sweats, fevers, chills, dizziness, visual changes, headaches. Review of Systems Review of Systems: All systems reviewed & are unremarkable except as noted in HPI and below PMFSH Past Medical History Medical History Hypertension Obesity Osteoarthritis of right knee Postoperative wound dehiscence right knee Surgical History Surgical History History of coronary artery stent placement Family History Family History Mother Hypertension Bowel cancer Social History Social History (
[2021-07-08] MEDS: ASPIRIN 325 MG ENTERIC TABLET PO ×2 (09:02→20:22)
[2021-07-08] MEDS: FAMOTIDINE 20 MG TABLET PO ×2 (09:02→20:22)
[2021-07-08] MEDS: polyethylene glycoL 3350 17 GM POWD.PACK PO (09:02)
[2021-07-08] MEDS: SENNA/DOCUSATE SODIUM TABLET 2 TAB PO ×2 (09:02→17:30)
--- NOTE | 2021-07-08 12:00 | PM.PNORT ---
Progress Note: A&P Assessment and Plan (1) Dehiscence of wound of skin: Qualifiers: Encounter type: initial encounter Qualified Code(s): T81.30XA - Disruption of wound, unspecified, initial encounter Code(s): T81.30XA - Disruption of wound, unspecified, initial encounter Status: Acute Assessment and Plan: will plan on leaving the drain in one more day and assess the wound tomorrow. If it looks fine can advance activities and would anticipate that discharge Tuesday morning. Appreciate hospitalist input. Subjective Subjective Date/Time Seen: 07/08/21 12:00 Post Op day: 1 Principal diagnosis: Status post right knee washout and closure traumatic dehiscence Interval history: 61-year-old male postop day one wash on closure right knee wound. Not having very much discomfort. Did have a subsartorial block administered in the recovery room. Exam Const: General: cooperative, comfortable and no acute distress Nutritional Appearance: obese ( BMI 32.9) Extrem: Other: right knee wound edges well apposed. No erythema and virtually no drainage. In the drain there is very little serosanguineous fluid in the tube and none in the reservoir. Neurovascular status grossly intact right lower extremity. Objective Data Vital Signs Vital Signs: Vital Signs - 24 hr 07/07/21 18:23 07/07/21 18:38 07/07/21 18:50 Temperature 97.0 F L Pulse Rate 79 83 86 Respiratory Rate 14 12 10 L Blood Pressure 135/73 127/58 L 126/57 L Pulse Oximetry 100 100 98 07/07/21 19:05 07/07/21 19:20 07/07/21 19:35 Temperature Pulse Rate 84 83 82 Respiratory Rate 11 L 12 14 Blood Pressure 124/57 L 129/64 124/62 Pulse Oximetry 100 97 100 07/07/21 19:53 07/07/21 20:22 07/07/21 21:22 Temperature 97 F L 97.1 F L 97.7 F Pulse Rate 86 82 90 Respiratory Rate 17 18 19 Blood Pressure 145/82 H 134/68 148/85 H Pulse Oximetry 99 99 100 07/07/21 22:00 07/07/21 23:21 07/08/21 03:24 Temperature 96.5 F L 97.5 F L 97.8 F Pulse Rate 85 102 H 75 Respiratory Rate 16 17 17 Blood Pressure 118/61 118/56 L 108/64 Pulse Oximetry 97 96 97 07/08/21 08:30 Temperature 96.3 F L Pulse Rate 82 Respiratory Rate 16 Blood Pressure 121/67 Pulse Oximetry 98 Intake/Output Intake/Output: Intake & Output 07/05/21 07/06/21 07/07/21 07/08/21 23:59 23:59 23:59 23:59 Intake Total 890 / 890 340 / 340 Output Total 400 / 400 1225 / 1225 Balance 490 / 490 -885 / -885 Meds/Results Medications: Active Medications Generic Name Dose Route Start Last Admin Trade Name Freq PRN Reason Stop Dose Admin Acetaminophen 650 mg 07/07/21 19:37 Acetaminophen 325 Mg Tablet PO Q6H PRN Pain Rated 1-3 Aspirin 325 mg 07/07/21 21:00 07/08/21 09:02 Aspirin 325 Mg Enteric Tablet PO 325 mg Q12HR ISAIAH Administration Bisacodyl 10 mg 07/07/21 19:37 Bisacodyl 10 Mg Suppository RECTAL DAILY PRN Constipation Cyclobenzaprine HCl 10 mg 07/07/21 19:37 Cyclobenzaprine Hcl 10 Mg Tablet PO Q8H PRN Muscle Spasm Famotidine 20 mg 07/07/21 21:00 07/08/21 09:02 Famotidine 20 Mg Tablet PO 20 mg Q12HR ISAIAH Administration Cefazolin Sodium 2 gm in 50 mls @ 100 mls/hr 07/08/21 01:00 07/08/21 09:32 Ancef 2 Gm/D5w 50 Ml IVPB 07/10/21 17:29 Infused Q8H ISAIAH Infusion Ketorolac Tromethamine 15 mg 07/08/21 00:00 07/08/21 09:01 Ketorolac 15 Mg/Ml Vial (*Bkc) IM 07/09/21 00:01 15 mg Q6HR ISAIAH Administration Naloxone HCl 0.1 mg 07/07/21 19:37 Naloxone Hcl 0.4 Mg/Ml Vial IV PUSH Q2M PRN Opiate Reversal Ondansetron HCl 4 mg 07/07/21 19:37 Ondansetron Inj 4 Mg/2 Ml Vial IV PUSH Q4H PRN Nausea And Vomiting Oxycodone HCl 5 mg 07/07/21 19:37 Oxycodone Hcl (*Crx) 5 Mg Tab Ir PO Q4H PRN Pain Rated 4-6 Polyethylene Glycol 17 gm 07/08/21 09:00 07/08/21 09:02 Polyethylene Glycol 3350 17 Gm Powd.Pack PO 17 gm QAM ISAIAH Administration
--- NOTE | 2021-07-08 13:12 | WPDANESPN ---
Anes - Prog Note Post-Op Date/Time: 07/08/21 13:12 Cardiovascular status: normal Respiratory status: normal Airway patency: baseline Mental status: baseline Post-Op hydration status: normal Vital Signs: Last Vital Signs Temp 36.6 C 07/08/21 12:58 Pulse 81 07/08/21 12:58 Resp 16 07/08/21 12:58 BP 128/74 07/08/21 12:58 Pulse Ox 96 07/08/21 12:58 Pain Score (VAS): 0 I/O: Intake & Output 07/07/21 07/08/21 07/08/21 23:59 07:59 15:59 Intake Total 890 50 530 Output Total 400 825 400 Balance 490 -239 130 Post-procedural complaints: none Patient Feedback: Patient satisfied with anesthetic care.
[2021-07-08] MEDS: MELATONIN 5 MG TABLET PO (20:22)
[2021-07-09] MEDS: KETOROLAC 15 MG/ML VIAL (*BKC) IM (00:55)
[2021-07-09] MEDS: ceFAZolin 2 GM/D5W 50 ML 2 GM/50 ML BAG IVPB ×3 (00:56→17:49)
[2021-07-09 03:16] VITALS: BP 103/57; PULSE 62; RESP 17; TEMP 36.6; O2SAT 96
[2021-07-09 05:26] LABS: Basophils Percent Auto 0.4 % (0.2-1.2); Eosinophils Absolute Auto 0.2 K/mm3 (0-0.3); Eosinophils Percent Auto 1.8 % (0-4.4); Hematocrit 27.5 % (42.0-52.0); Hemoglobin 8.9 g/dL (14.0-18.0); Immature Granulocyte Absolute 0.04 K/mm3 (0.00-0.031); Immature Granulocyte Percent A 0.4 % (0-0.5); Lymphocytes Absolute Auto 3.05 K/mm3 (0.9-3.2); Lymphocytes Percent Auto 32.9 % (18.3-44.2); Mean Corpuscular HGB Conc 32.4 g/dl (32-36); Mean Corpuscular Hemoglobin 30.1 pg (26-34); Mean Corpuscular Volume 92.9 fl (80-100); Mean Platelet Volume 8.8 fl (7.4-10.4); Monocytes Absolute Auto 0.6 K/mm3 (0.1-0.6); Monocytes Percent Auto 6.3 % (2.6-8.5); Neutrophils Absolute Auto 5.4 K/mm3 (1.3-6.7); Neutrophils Percent Auto 58.2 % (45.5-73.1); Platelet Count Result 354 k/mm3 (150-375); Red Blood Count 2.96 M/mm3 (4.6-6.20); Red Cell Distribution Width 12.8 % (11.5-14.5); White Blood Count 9.3 K/mm3 (4.5-10.0)
[2021-07-09 05:48] LABS: Alanine Aminotransferase 20 U/L (4-50); Albumin Level 3.6 g/dL (3.5-5.1); Alkaline Phosphatase 57 U/L (38-126); Anion Gap 7 mmol/L (8-16); Aspartate Amino Transferase 37 U/L (17-59); Bilirubin,Total 0.3 mg/dL (0.2-1.3); Blood Urea Nitrogen 25 mg/dL (9-20); Calcium 8.4 mg/dL (8.4-10.2); Carbon Dioxide 26 mmol/L (22-30); Chloride 103 mmol/L (98-107); Estimated CRCL calculation 69 ml/min; Estimated Glomerular Filt Rate 56; Glucose 91 mg/dL (65-110); Magnesium 2.2 mg/dL (1.6-2.3); Potassium 4.5 mmol/L (3.4-5.0); Sodium 136 mmol/L (137-145)
--- NOTE | 2021-07-09 07:58 | PM.PNORT ---
Progress Note: A&P Assessment and Plan (1) Dehiscence of wound of skin: Qualifiers: Encounter type: initial encounter Qualified Code(s): T81.30XA - Disruption of wound, unspecified, initial encounter Code(s): T81.30XA - Disruption of wound, unspecified, initial encounter Status: Acute Assessment and Plan: Doing very well. Will increase his activities as tolerated today. Anticipate discharge home tomorrow morning. We will put his formal outpatient therapy on hold until he comes back to get his sutures removed. Subjective Subjective Date/Time Seen: 07/09/21 07:58 Post Op day: 2 Principal diagnosis: Washout and closure right total knee traumatic wound dehiscence Interval history: Uneventful day is today. Virtually no drainage in the drain. Exam Const: General: cooperative, comfortable and no acute distress Nutritional Appearance: overweight ( BMI 32.9) Extrem: Other: Dressing removed from the right lower extremity. Wound edges are well approximated and there is no drainage. No erythema and very little swelling noted. Drain removed without incident. Calves negative. Neurovascular status unremarkable right lower extremity. Objective Data Vital Signs Vital Signs: Vital Signs - 24 hr 07/08/21 08:30 07/08/21 12:58 07/08/21 17:41 Temperature 96.3 F L 97.8 F 97.9 F Pulse Rate 82 81 78 Respiratory Rate 16 16 18 Blood Pressure 121/67 128/74 138/68 Pulse Oximetry 98 96 98 07/08/21 19:41 07/08/21 20:41 07/09/21 03:16 Temperature 98 F 98 F Pulse Rate 66 72 62 Respiratory Rate 16 17 Blood Pressure 115/65 103/57 L Pulse Oximetry 97 96 96 Intake/Output Intake/Output: Intake & Output 07/06/21 07/07/21 07/08/21 07/09/21 23:59 23:59 23:59 23:59 Intake Total 890 / 890 1420 / 1420 50 / 50 Output Total 400 / 400 1425 / 1425 500 / 500 Balance 490 / 490 -5 / -5 -450 / -450 Meds/Results Medications: Active Medications Generic Name Dose Route Start Last Admin Trade Name Freq PRN Reason Stop Dose Admin Acetaminophen 650 mg 07/07/21 19:37 Acetaminophen 325 Mg Tablet PO Q6H PRN Pain Rated 1-3 Aspirin 325 mg 07/07/21 21:00 07/08/21 20:22 Aspirin 325 Mg Enteric Tablet PO 325 mg Q12HR ISAIAH Administration Bisacodyl 10 mg 07/07/21 19:37 Bisacodyl 10 Mg Suppository RECTAL DAILY PRN Constipation Cyclobenzaprine HCl 10 mg 07/07/21 19:37 Cyclobenzaprine Hcl 10 Mg Tablet PO Q8H PRN Muscle Spasm Famotidine 20 mg 07/07/21 21:00 07/08/21 20:22 Famotidine 20 Mg Tablet PO 20 mg Q12HR ISAIAH Administration Cefazolin Sodium 2 gm in 50 mls @ 100 mls/hr 07/08/21 01:00 07/09/21 01:26 Ancef 2 Gm/D5w 50 Ml IVPB 07/10/21 17:29 Infused Q8H [facility] Infusion Melatonin 5 mg 07/08/21 21:00 07/08/21 20:22 Melatonin 5 Mg Tablet PO 5 mg HS ISAIAH Administration Naloxone HCl 0.1 mg 07/07/21 19:37 Naloxone Hcl 0.4 Mg/Ml Vial IV PUSH Q2M PRN Opiate Reversal Ondansetron HCl 4 mg 07/07/21 19:37 Ondansetron Inj 4 Mg/2 Ml Vial IV PUSH Q4H PRN Nausea And Vomiting Oxycodone HCl 5 mg 07/07/21 19:37 Oxycodone Hcl (*Crx) 5 Mg Tab Ir PO Q4H PRN Pain Rated 4-6 Polyethylene Glycol 17 gm 07/08/21 09:00 07/08/21 09:02 Polyethylene Glycol 3350 17 Gm Powd.Pack PO 17 gm QAM [facility] Administration Senna/Docusate Sodium 2 tab 07/08/21 09:00 07/08/21 17:30 Senna/Docusate Sodium Tablet PO 2 tab BID ISAIAH Administration Labs Labs: Laboratory Results - last 24 hr 07/09/21 07/09/21 04:55 04:55 WBC 9.3 RBC 2.96 L Hgb 8.9 L Hct 27.5 L MCV 92.9 MCH 30.1 MCHC 32.4 RDW 12.8 Plt Count 354 MPV 8.8 Immature Gran % (Auto) 0.4 Neut % (Auto) 58.2 Lymph % (Auto) 32.9 Heard % (Auto) 6.3 Eos % (Auto) 1.8 Baso % (Auto) 0.4 Lymph # (Auto) 3.05 Heard # (Auto) 0.6 Eos # (Auto) 0.2 Baso # (Auto) 0.0 Abs Immat Gran (auto) 0
[2021-07-09] MEDS: oxyCODONE HCL (*CRX) 5 MG TAB IR PO ×3 (08:57→23:35)
[2021-07-09] MEDS: ASPIRIN 325 MG ENTERIC TABLET PO ×2 (08:57→21:14)
[2021-07-09] MEDS: FAMOTIDINE 20 MG TABLET PO ×2 (08:58→21:14)
[2021-07-09] MEDS: SENNA/DOCUSATE SODIUM TABLET 2 TAB PO (08:58)
[2021-07-09] MEDS: polyethylene glycoL 3350 17 GM POWD.PACK PO (08:58)
[2021-07-09 09:06] VITALS: O2SAT 96
--- NOTE | 2021-07-09 10:00 | PM.IMPN ---
Progress Note: A&P Assessment and Plan (1) Postoperative wound dehiscence: Qualifiers: Encounter type: initial encounter Qualified Code(s): T81.31XA - Disruption of external operation (surgical) wound, not elsewhere classified, initial encounter Code(s): T81.31XA - Disruption of external operation (surgical) wound, not elsewhere classified, initial encounter Status: Acute Assessment and Plan: Reported fall and surgical wound opened Status post knee replacement on 06/16/21 Dr. Medellin to manage care POD [address] Surgical procedure performed 07/07/21 Cefazolin 2gm x 9 bags Toradol 15mg IM Q6h, oxycodone 5mg PO Q4Hr, Acetaminophen 650mg PO Q6Hr Bowel: Bisacodyl 10mg Rectal Daily PRN, Senokot 2 tabs PO BID, Miralax PO QAM DVT aspirin 325mg PO Q12hr PT/OT per ortho (2) History of total right knee replacement: Code(s): Z96.651 - Presence of right artificial knee joint Status: Acute Assessment and Plan: Knee replacement from 06/16/21 PT/OT per ortho (3) History of coronary artery stent placement: Code(s): Z95.5 - Presence of coronary angioplasty implant and graft Status: Acute Assessment and Plan: Continue Aspirin 325mg PO daily Continue simvastatin (4) Obesity: Code(s): E66.9 - Obesity, unspecified Status: Acute Assessment and Plan: Rehabilitation Worker consult lifestyle changes and education diet planning Lost 15-20lbs (5) Hypertension: Code(s): I10 - Essential (primary) hypertension Status: Inactive Assessment and Plan: Current BP is 103/57 Hold home therapy for now, Lisinopril 30mg PO Daily, HCTZ 25mg PO Qam Restart home medications as appropriate Trend blood pressure Adjust therapy as indicated (6) Hyperlipidemia: Code(s): E78.5 - Hyperlipidemia, unspecified Status: Acute Assessment and Plan: Continue home simvastatin Subjective Date/time seen: 07/09/21 1000 Interval history: Consult date: 07/08/21 Narrative: Anselmo Henson is a 61 year old male with a past medical history of HLD, HTN, and CAD who had a knee replacement on 06/17/21. Patient stated he was walking into his house after the PT appointment and he had something in his hands and he tripped and fell on his knee. At that point he noticed that his wound had dehisced which prompted him to come back to the ED. patient also stated that he had just seen the nurse practitioner at Dr. Medellin's office prior to the fall as well. It was reported that his incision looked good and that he should have a small scar that would be hardly noticeable. Patient also stated that he has not been taking his blood pressure medicines and he has been taking his blood pressure every day which has been running about 108/71. Patient stated that he was going to follow-up with his primary care provider about decreasing his meds or getting off of them. Patient also stated that he has lost weight about 15-20 lbs purposefully. Patient denies any other problems including chest pain, shortness of breath, nausea, vomiting, diarrhea, constipation, weakness, fatigue, sweats, fevers, chills, dizziness, visual changes, headaches. Date/Time: 07/09/21 1000 Patient is doing ok. He stated that most of the pain is coming from the way that he is laying. I did offer him another pillow. He denies any chest pain, shortness of breath, nausea, vomiting, diarrhea, constipation. I did talk to the patient about possibly having PT and OT come see him for increased mobility. Review of Systems Review of Systems: All systems reviewed & are unremarkable except as noted in HPI and below Exam Const: General: cooperative, no acute distress, well developed, alert and awake Nutritional Appearance: average body habitus and well nourished Orientation/consciousness: oriented to person, oriented to place, orie
--- NOTE | 2021-07-09 10:00 | P.PNIM_ITS ---
Progress Note: A&P Assessment and Plan (1) Postoperative wound dehiscence: Qualifiers: Encounter type: initial encounter Qualified Code(s): T81.31XA - Disruption of external operation (surgical) wound, not elsewhere classified, initial encounter Code(s): T81.31XA - Disruption of external operation (surgical) wound, not elsewhere classified, initial encounter Status: Acute Assessment and Plan: * Reported fall and surgical wound opened * Status post knee replacement on 06/16/21 * Dr. Medellin to manage care * POD 2 * Wound vac in place * Surgical procedure performed 07/07/21 * Cefazolin 2gm x 9 bags * Toradol 15mg IM Q6h, oxycodone 5mg PO Q4Hr, Acetaminophen 650mg PO Q6Hr * Bowel: Bisacodyl 10mg Rectal Daily PRN, Senokot 2 tabs PO BID, Miralax PO QAM * DVT aspirin 325mg PO Q12hr * PT/OT per ortho (2) History of total right knee replacement: Code(s): Z96.651 - Presence of right artificial knee joint Status: Acute Assessment and Plan: * Knee replacement from 06/16/21 * PT/OT per ortho (3) History of coronary artery stent placement: Code(s): Z95.5 - Presence of coronary angioplasty implant and graft Status: Acute Assessment and Plan: * Continue Aspirin 325mg PO daily * Continue simvastatin (4) Obesity: Code(s): E66.9 - Obesity, unspecified Status: Acute Assessment and Plan: * Bereavement Counselor consult * lifestyle changes and education * diet planning * Lost 15-20lbs (5) Hypertension: Code(s): I10 - Essential (primary) hypertension Status: Inactive Assessment and Plan: * Current BP is 103/57 * Hold home therapy for now, Lisinopril 30mg PO Daily, HCTZ 25mg PO Qam * Restart home medications as appropriate * Trend blood pressure * Adjust therapy as indicated (6) Hyperlipidemia: Code(s): E78.5 - Hyperlipidemia, unspecified Status: Acute Assessment and Plan: * Continue home simvastatin Subjective Date/time seen: 07/09/21 1000 Interval history: Consult date: 07/08/21 Narrative: Anselmo Henson is a 61 year old male with a past medical history of HLD, HTN, and CAD who had a knee replacement on 06/17/21. Patient stated he was walking into his house after the PT appointment and he had something in his hands and he tripped and fell on his knee. At that point he noticed that his wound had dehisced which prompted him to come back to the ED. patient also stated that he had just seen the nurse practitioner at Dr. Medellin's office prior to the fall as well. It was reported that his incision looked good and that he should have a small scar that would be hardly noticeable. Patient also stated that he has not been taking his blood pressure medicines and he has been taking his blood pressure every day which has been running about 108/71. Patient stated that he was going to follow-up with his primary care provider about decreasing his meds or getting off of them. Patient also stated that he has lost weight about 15-20 lbs purposefully. Patient denies any other problems including chest pain, shortness of breath, nausea, vomiting, diarrhea, constipation, weakness, fatigue, sweats, fevers, chills, dizziness, visual changes, headaches. Date/Time: 07/09/21 1000 Patient is doing ok. He stated that most of the pain is coming from the way th at he is laying. I did offer him another pillow. He denies any chest pain, jacob
[2021-07-09 14:17] VITALS: BP 137/68; PULSE 73; RESP 16; TEMP 35.9; O2SAT 99
[2021-07-09] MEDS: MELATONIN 5 MG TABLET PO (21:14)
[2021-07-09 23:29] VITALS: BP 106/62; PULSE 77; RESP 18; TEMP 36.5; O2SAT 95
[2021-07-10] MEDS: ceFAZolin 2 GM/D5W 50 ML 2 GM/50 ML BAG IVPB (00:46)
[2021-07-10] MEDS: oxyCODONE HCL (*CRX) 5 MG TAB IR PO ×2 (05:18→12:02)
[2021-07-10] MEDS: ASPIRIN 325 MG ENTERIC TABLET PO (08:42)
[2021-07-10] MEDS: SENNA/DOCUSATE SODIUM TABLET 2 TAB PO (08:42)
[2021-07-10] MEDS: polyethylene glycoL 3350 17 GM POWD.PACK PO (08:47)
[2021-07-10] MEDS: FAMOTIDINE 20 MG TABLET PO (08:47)
--- NOTE | 2021-07-10 08:59 | PM.DS ---
DS: Admitting Diagnosis Discharge Date 07/10/2021 Admitting Diagnosis Washout and closure right total knee traumatic wound dehiscence DS: Discharge Diagnosis Discharge Diagnosis (1) Dehiscence of wound of skin: Qualifiers: Encounter type: initial encounter Qualified Code(s): T81.30XA - Disruption of wound, unspecified, initial encounter Code(s): T81.30XA - Disruption of wound, unspecified, initial encounter Status: Acute Assessment and Plan: 61-year-old male who is now postop day 3 after washout and closure of right total knee traumatic wound dehiscence. He has had another uneventful overnight stay. On exam this morning the surgical incision is clean and dry. There is no drainage noted to the area. He is able to fully extend the knee to 0?. He will plan to follow-up in our office in 2 weeks for suture removal and wound check. Physical therapy will be held until that is completed. He will be discharged home with Bactrim DS to take for 2 weeks. Appreciate hospitalist input. DVT prophylaxis: Aspirin 325 mg daily Pain medication: 50 mg Tramadol Q 4-6 H , scheduled Tylenol 650 mg ER q8H Dressing change: Daily with gauze and 6 in Sixto wrap. Antibiotic: Bactrim DS q12h (2) Hyperlipidemia: Code(s): E78.5 - Hyperlipidemia, unspecified Status: Acute Assessment and Plan: Continue simvastatin as previously prescribed. DS: Summary Hospital Course Reason for hospitalization: Inpatient admission due to washout and closure right total knee traumatic wound dehiscence Hospital Course: 61-year-old male who was admitted after a washout and closure right total knee traumatic wound dehiscence. The incision site was clean and dry during his stay. He was given IV antibiotics and hospitalist was consulted. Plan to discharge home with Bactrim DS for 2 weeks and he received his 1st dose in the hospital today. He will follow up in 2 weeks for suture removal along with a wound check. Status at Discharge Functional status at discharge: uses cane/walker Overall status at discharge: patient is progressing back to baseline Time Spent with Patient Time attestation: Total time spent providing and/or coordinating discharge services: Exam Const: General: comfortable and no acute distress Limitations: no limitations HENMT: Mouth: Yes moist mucous membranes Resp: Effort & Inspection: normal respiratory effort GI: Inspection: non-distended GI Palp: No Tenderness to palpation present (GI) Neuro: Sensory Exam: normal sensation Extrem: Other: Exam of the right knee reveals a clean and dry surgical incision with sutures in place. Wound edges are well approximated. Calves negative. He is able to fully extend the knee to 0? without difficulty. Psych: Mental Status: mental status grossly normal DS: Data Data Completed and Pending Labs on day of discharge: Labs from last 24 hours 07/07/21 07/07/21 16:23 16:23 WBC 11.2 H RBC 3.76 L Hgb 11.3 L D Hct 34.6 L MCV 92.0 MCH 30.1 MCHC 32.7 RDW 13.0 Plt Count 510 H D MPV 9.0 Immature Gran % (Auto) 0.4 Neut % (Auto) 67.8 Lymph % (Auto) 21.8 Lassen % (Auto) 6.4 Eos % (Auto) 3.1 Baso % (Auto) 0.5 Lymph # (Auto) 2.45 Lassen # (Auto) 0.7 H Eos # (Auto) 0.4 H Baso # (Auto) 0.1 Abs Immat Gran (auto) 0.05 H Absolute Neuts (auto) 7.6 H Absolute Nucleated RBC 0.0 Nucleated RBC % 0.0 Sodium Cancelled Potassium Cancelled Chloride Cancelled Carbon Dioxide Cancelled Anion Gap Cancelled BUN Cancelled Creatinine Cancelled Estim Creat Clear Calc Cancelled Estimated GFR Cancelled Glucose Cancelled Calcium Cancelled Discharge Plan Discharge Attending physician on discharge: Robbie Medellin Consulting providers: Victoriano Cuadra Discharging Clinician: Shlomo Ross Patient Disposition: Home, Self-Care Activity: other - see discharge instructions Diet
--- NOTE | 2021-07-10 09:00 | PM.IMPN ---
Progress Note: A&P Assessment and Plan (1) Postoperative wound dehiscence: Qualifiers: Encounter type: initial encounter Qualified Code(s): T81.31XA - Disruption of external operation (surgical) wound, not elsewhere classified, initial encounter Code(s): T81.31XA - Disruption of external operation (surgical) wound, not elsewhere classified, initial encounter Status: Acute Assessment and Plan: Reported fall and surgical wound opened Status post knee replacement on 06/16/21 Dr. Medellin to manage care POD [address] Surgical procedure performed 07/07/21 Cefazolin 2gm x 9 bags Toradol 15mg IM Q6h, oxycodone 5mg PO Q4Hr, Acetaminophen 650mg PO Q6Hr Bowel: Bisacodyl 10mg Rectal Daily PRN, Senokot 2 tabs PO BID, Miralax PO QAM DVT aspirin 325mg PO Q12hr PT/OT per ortho (2) History of total right knee replacement: Code(s): Z96.651 - Presence of right artificial knee joint Status: Acute Assessment and Plan: Knee replacement from 06/16/21 PT/OT per ortho (3) History of coronary artery stent placement: Code(s): Z95.5 - Presence of coronary angioplasty implant and graft Status: Acute Assessment and Plan: Continue Aspirin 325mg PO daily Continue simvastatin (4) Obesity: Code(s): E66.9 - Obesity, unspecified Status: Acute Assessment and Plan: Dining Manager consult lifestyle changes and education diet planning Lost 15-20lbs (5) Hypertension: Code(s): I10 - Essential (primary) hypertension Status: Inactive Assessment and Plan: Current BP is 106/62 Hold home therapy for now, Lisinopril 30mg PO Daily, HCTZ 25mg PO Qam Restart home medications as appropriate Trend blood pressure Adjust therapy as indicated (6) Hyperlipidemia: Code(s): E78.5 - Hyperlipidemia, unspecified Status: Acute Assessment and Plan: Continue home simvastatin Subjective Date/time seen: 07/10/21 0900 Interval history: Consult date: 07/08/21 Narrative: Anselmo Henson is a 61 year old male with a past medical history of HLD, HTN, and CAD who had a knee replacement on 06/17/21. Patient stated he was walking into his house after the PT appointment and he had something in his hands and he tripped and fell on his knee. At that point he noticed that his wound had dehisced which prompted him to come back to the ED. patient also stated that he had just seen the nurse practitioner at Dr. Medellin's office prior to the fall as well. It was reported that his incision looked good and that he should have a small scar that would be hardly noticeable. Patient also stated that he has not been taking his blood pressure medicines and he has been taking his blood pressure every day which has been running about 108/71. Patient stated that he was going to follow-up with his primary care provider about decreasing his meds or getting off of them. Patient also stated that he has lost weight about 15-20 lbs purposefully. Patient denies any other problems including chest pain, shortness of breath, nausea, vomiting, diarrhea, constipation, weakness, fatigue, sweats, fevers, chills, dizziness, visual changes, headaches. Date/Time: 07/09/21 1000 Patient is doing ok. He stated that most of the pain is coming from the way that he is laying. I did offer him another pillow. He denies any chest pain, shortness of breath, nausea, vomiting, diarrhea, constipation. I did talk to the patient about possibly having PT and OT come see him for increased mobility. Date/time: 07/10/21 0900 Patient is lying in bed. Patient is doing well he is dressed and ready to go. Patient denies any complaints including chest pain, shortness breast, nausea, vomiting, diarrhea, constipation, weakness, fatigue. Did talk to the patient about stopping his blood pressure medications until he talks to his primary c
--- NOTE | 2021-07-10 09:00 | P.PNIM_ITS ---
Progress Note: A&P Assessment and Plan (1) Postoperative wound dehiscence: Qualifiers: Encounter type: initial encounter Qualified Code(s): T81.31XA - Disruption of external operation (surgical) wound, not elsewhere classified, initial encounter Code(s): T81.31XA - Disruption of external operation (surgical) wound, not elsewhere classified, initial encounter Status: Acute Assessment and Plan: * Reported fall and surgical wound opened * Status post knee replacement on 06/16/21 * Dr. Medellin to manage care * POD 3 * Wound vac in place * Surgical procedure performed 07/07/21 * Cefazolin 2gm x 9 bags * Toradol 15mg IM Q6h, oxycodone 5mg PO Q4Hr, Acetaminophen 650mg PO Q6Hr * Bowel: Bisacodyl 10mg Rectal Daily PRN, Senokot 2 tabs PO BID, Miralax PO QAM * DVT aspirin 325mg PO Q12hr * PT/OT per ortho (2) History of total right knee replacement: Code(s): Z96.651 - Presence of right artificial knee joint Status: Acute Assessment and Plan: * Knee replacement from 06/16/21 * PT/OT per ortho (3) History of coronary artery stent placement: Code(s): Z95.5 - Presence of coronary angioplasty implant and graft Status: Acute Assessment and Plan: * Continue Aspirin 325mg PO daily * Continue simvastatin (4) Obesity: Code(s): E66.9 - Obesity, unspecified Status: Acute Assessment and Plan: * Acid Retort Operator consult * lifestyle changes and education * diet planning * Lost 15-20lbs (5) Hypertension: Code(s): I10 - Essential (primary) hypertension Status: Inactive Assessment and Plan: * Current BP is 106/62 * Hold home therapy for now, Lisinopril 30mg PO Daily, HCTZ 25mg PO Qam * Restart home medications as appropriate * Trend blood pressure * Adjust therapy as indicated (6) Hyperlipidemia: Code(s): E78.5 - Hyperlipidemia, unspecified Status: Acute Assessment and Plan: * Continue home simvastatin Subjective Date/time seen: 07/10/21 0900 Interval history: Consult date: 07/08/21 Narrative: Anselmo Henson is a 61 year old male with a past medical history of HLD, HTN, and CAD who had a knee replacement on 06/17/21. Patient stated he was walking into his house after the PT appointment and he had something in his hands and he tripped and fell on his knee. At that point he noticed that his wound had dehisced which prompted him to come back to the ED. patient also stated that he had just seen the nurse practitioner at Dr. Medellin's office prior to the fall as well. It was reported that his incision looked good and that he should have a small scar that would be hardly noticeable. Patient also stated that he has not been taking his blood pressure medicines and he has been taking his blood pressure every day which has been running about 108/71. Patient stated that he was going to follow-up with his primary care provider about decreasing his meds or getting off of them. Patient also stated that he has lost weight about 15-20 lbs purposefully. Patient denies any other problems including chest pain, shortness of breath, nausea, vomiting, diarrhea, constipation, weakness, fatigue, sweats, fevers, chills, dizziness, visual changes, headaches. Date/Time: 07/09/21 1000 Patient is doing ok. He stated that most of the pain is coming from the way susan t he is laying. I did offer him another pillow. He denies any chest pain, shortness
--- NOTE | 2021-07-10 09:07 | P.DS_ITS ---
DS: Admitting Diagnosis Discharge Date 07/10/21 Admitting Diagnosis Surgical wound dehiscence DS: Discharge Diagnosis Discharge Diagnosis (1) Postoperative wound dehiscence: Qualifiers: Encounter type: initial encounter Qualified Code(s): T81.31XA - Disruption of external operation (surgical) wound, not elsewhere classified, initial encounter Code(s): T81.31XA - Disruption of external operation (surgical) wound, not elsewhere classified, initial encounter Status: Acute Assessment and Plan: * Reported fall and surgical wound opened * Status post knee replacement on 06/16/21 * Dr. Medellin to manage care * POD 2 * Wound vac in place * Surgical procedure performed 07/07/21 * Cefazolin 2gm x 9 bags * Toradol 15mg IM Q6h, oxycodone 5mg PO Q4Hr, Acetaminophen 650mg PO Q6Hr * Bowel: Bisacodyl 10mg Rectal Daily PRN, Senokot 2 tabs PO BID, Miralax PO QAM * DVT aspirin 325mg PO Q12hr * PT/OT per ortho (2) History of total right knee replacement: Code(s): Z96.651 - Presence of right artificial knee joint Status: Acute Assessment and Plan: * Knee replacement from 06/16/21 * PT/OT per ortho (3) History of coronary artery stent placement: Code(s): Z95.5 - Presence of coronary angioplasty implant and graft Status: Acute Assessment and Plan: * Continue Aspirin 325mg PO daily * Continue simvastatin (4) Obesity: Code(s): E66.9 - Obesity, unspecified Status: Acute Assessment and Plan: * Tape Recorder Repairer consult * lifestyle changes and education * diet planning * Lost 15-20lbs (5) Hypertension: Code(s): I10 - Essential (primary) hypertension Status: Inactive Assessment and Plan: * Current BP is 103/57 * Hold home therapy for now, Lisinopril 30mg PO Daily, HCTZ 25mg PO Qam * Restart home medications as appropriate * Trend blood pressure * Adjust therapy as indicated (6) Hyperlipidemia: Code(s): E78.5 - Hyperlipidemia, unspecified Status: Acute Assessment and Plan: * Continue home simvastatin DS: Summary Hospital Course Hospital Course: Patient is 61-year-old male with a past medical history of hyperlipidemia hypertension osteoarthritis of the right knee with knee replacement he reported the ED after a fall at home and created traumatic injury to his recent wound from his knee replacement he had in June. Dr. Medellin from Orthopedics was consulted and patient was taken to the OR for reapproximation and closure. Patient was also started on IV cefazolin 2 g x 9 bags. Pain was also controlled with pain medications. Wound vac was in place for a short time. Ortho is wanting patient to stop PT until the follow up with ortho outpatient. He is feeling ok and denies any chest pain, shortness of breath, nausea, vomiting, diarrhea, constipation,fevers, sweats, chills. Status at Discharge Overall status at discharge: patient is progressing back to baseline Time Spent with Patient Time attestation: Total time spent providing and/or coordinating discharge services:33 minutes Specific discharge activities: Diagnostic testing, chart review, developing a treatment plan, education, care coordination documentation, physical exam, result review Exam Const: General: cooperative, no acute distress, well developed, alert and awake Nutritional Appearance: average body habitus and well nou
--- NOTE | 2021-07-10 09:07 | PM.DS ---
DS: Admitting Diagnosis Discharge Date 07/10/21 Admitting Diagnosis Surgical wound dehiscence DS: Discharge Diagnosis Discharge Diagnosis (1) Postoperative wound dehiscence: Qualifiers: Encounter type: initial encounter Qualified Code(s): T81.31XA - Disruption of external operation (surgical) wound, not elsewhere classified, initial encounter Code(s): T81.31XA - Disruption of external operation (surgical) wound, not elsewhere classified, initial encounter Status: Acute Assessment and Plan: Reported fall and surgical wound opened Status post knee replacement on 06/16/21 Dr. Medellin to manage care POD [address] Surgical procedure performed 07/07/21 Cefazolin 2gm x 9 bags Toradol 15mg IM Q6h, oxycodone 5mg PO Q4Hr, Acetaminophen 650mg PO Q6Hr Bowel: Bisacodyl 10mg Rectal Daily PRN, Senokot 2 tabs PO BID, Miralax PO QAM DVT aspirin 325mg PO Q12hr PT/OT per ortho (2) History of total right knee replacement: Code(s): Z96.651 - Presence of right artificial knee joint Status: Acute Assessment and Plan: Knee replacement from 06/16/21 PT/OT per ortho (3) History of coronary artery stent placement: Code(s): Z95.5 - Presence of coronary angioplasty implant and graft Status: Acute Assessment and Plan: Continue Aspirin 325mg PO daily Continue simvastatin (4) Obesity: Code(s): E66.9 - Obesity, unspecified Status: Acute Assessment and Plan: Batch Heat Treat Operator consult lifestyle changes and education diet planning Lost 15-20lbs (5) Hypertension: Code(s): I10 - Essential (primary) hypertension Status: Inactive Assessment and Plan: Current BP is 103/57 Hold home therapy for now, Lisinopril 30mg PO Daily, HCTZ 25mg PO Qam Restart home medications as appropriate Trend blood pressure Adjust therapy as indicated (6) Hyperlipidemia: Code(s): E78.5 - Hyperlipidemia, unspecified Status: Acute Assessment and Plan: Continue home simvastatin DS: Summary Hospital Course Hospital Course: Patient is 61-year-old male with a past medical history of hyperlipidemia hypertension osteoarthritis of the right knee with knee replacement he reported the ED after a fall at home and created traumatic injury to his recent wound from his knee replacement he had in June. Dr. Medellin from Orthopedics was consulted and patient was taken to the OR for reapproximation and closure. Patient was also started on IV cefazolin 2 g x 9 bags. Pain was also controlled with pain medications. Wound vac was in place for a short time. Ortho is wanting patient to stop PT until the follow up with ortho outpatient. He is feeling ok and denies any chest pain, shortness of breath, nausea, vomiting, diarrhea, constipation,fevers, sweats, chills. Status at Discharge Overall status at discharge: patient is progressing back to baseline Time Spent with Patient Time attestation: Total time spent providing and/or coordinating discharge services:33 minutes Specific discharge activities: Diagnostic testing, chart review, developing a treatment plan, education, care coordination documentation, physical exam, result review Exam Const: General: cooperative, no acute distress, well developed, alert and awake Nutritional Appearance: average body habitus and well nourished Orientation/consciousness: oriented to person, oriented to place, oriented to time and patient oriented x3 Limitations: no limitations HENMT: Head: normal to inspection Ears: hearing grossly normal bilaterally General nose exam: Normal external nose present Mouth: Yes Normal oral and palatal mucosa present, Yes lip normal and Yes tongue normal Teeth and gingiva: abnormal tooth and associated gingiva and poor dentition Eyes: General: appearance normal, both eyes and all related structures Neck: Neck: no
== END 2021-07-10 13:00 | disposition home or self-care (01) | DRG 921 ==
LOC: ANH3MED 07-09 07:48 → ANHED 07-09 12:08 → ANHSURGERY 07-09 12:09 → ANH3MED 07-09 13:56
PROVIDERS: Nurse Practitioner; Physician Assistant; Admitting Provider Orthopaedic Surgery; Emergency Provider Orthopaedic Surgery; Visit Provider Nurse Practitioner
PROC: 3E10X8Z Irrigation of Skin and Mucous Membranes using Irrigating Substance (ICD-10-PCS; CPT 27487; principal; 2021-07-07 15:00)
DX: T81.31XA Disruption of external operation (surgical) wound, not elsewhere classified, initial encounter (principal); W19.XXXA Unspecified fall, initial encounter; Z96.651 Presence of right artificial knee joint; Z95.5 Presence of coronary angioplasty implant and graft; E66.9 Obesity, unspecified; I10 Essential (primary) hypertension; E78.5 Hyperlipidemia, unspecified; I25.10 Atherosclerotic heart disease of native coronary artery without angina pectoris; Z87.891 Personal history of nicotine dependence; Z79.899 Other long term (current) drug therapy; Z79.82 Long term (current) use of aspirin
CPT/HCPCS: 36415; 80053; 83735; 85025; 99285; A9270; J0690; J1100; J1885; J2250; J2405; J2704; J3010; J7030; J7120

== ENCOUNTER 2021-07-30 12:18 | Outpatient (CLI) | payer OTHER, SELFPAY ==
--- NOTE | ~2021-07-30 | US_ITS ---
EXAMINATION: US venous doppler LE RT DATE: 07/30/2021 12:54 INDICATION: Persistent pain, tenderness and achiness at the right lower limb post recent total knee a rthroplasty. TECHNIQUE: Grayscale ultrasound images without and with compression and Doppler ultrasound images of the right lower extremity veins were obtained. COMPARISON: None. FINDINGS: The visualized portions of right common femoral vein, profunda (deep) femoral vein, femoral vein, pop liteal vein, peroneal trunk, posterior tibial veins, peroneal veins, gastrocnemius vein and greater s aphenous vein outflow are patent. 6.0 x 3.9 x 1.4 cm Clark's cyst at the right popliteal fossa. IMPRESSION: 1. No deep venous thrombosis in the right lower limb. 2. Moderate-sized right Clark's cyst. Reviewed, dictated and finalized at location A.
== END 2021-07-30 12:19 | disposition home or self-care (01) ==
PROVIDERS: Visit Provider Nurse Practitioner
DX: M79.604 Pain in right leg (principal); Z96.651 Presence of right artificial knee joint; M71.21 Synovial cyst of popliteal space [Baker], right knee
CPT/HCPCS: 93971

== ENCOUNTER 2021-08-27 10:30 | Outpatient (RCR) | payer OTHER, SELFPAY ==
--- NOTE | 2021-06-22 11:54 | PTOPEVAL ---
PHYSICAL THERAPY EVALUATION AND PLAN OF CARE Thank you for referring Anselmo Henson to [facility].? The patient is scheduled to be seen for therapy? 2-3x/week for 4 weeks. Please review, sign, date and return this plan of care CARLY. I agree with and certify that the following plan of care is medically necessary. Referring Physician Date Attending Provider: Robbie Medellin MD Evaluation Outpatient Past Medical History Neurological History Hx Neurological Disorders No Significant History Cardiovascular History Hx Cardiac Catheterization Yes: 2008 Hx Coronary Stent Yes: X1 Hx Other Cardiac Disorders Yes: RELEASED FROM [facility] YEARS AGO Respiratory History Hx Respiratory Disorders No Significant History Gastrointestinal History Hx Appendectomy Yes Genitourinary History Hx Genitourinary Disorders No Significant History Musculoskeletal History Hx Arthritis Yes: KNEES Hx Crutches or Walker Use Yes: CRUTCHES Query Text:If Yes, Enter Crutches, Walker, or Both in the Comment Hx Fractures Yes: lt leg Hematological History Hx Hematological Disorders No Significant History Endocrine History Hx Endocrine Disorders No Significant History HEENT History Hx Eye Surgery Yes: BILATERAL LENS REPLACEMENT Hx Other HEENT Disorders Yes: CONTACTS/GLASSES Integumentary History Hx Skin Disorders No Significant History Reproductive History Hx Other Reproductive Disorders Yes: VASECTOMY Psychosocial History Hx Psychiatric Disorders No Significant History Pain History Has Past Pain Affected Your Daily Life Yes: RT KNEE Anesthesia History Hx Anesthesia Reactions No Significant History Other History Hx Implanted Device Yes: CARDIAC STENT Diagnosis right TKA Onset 06/16/21 Subjective Information Anselmo experienced right TKA Query Text:As Reported By Patient/ on 06/16/21. He is using Family axillary crutches for mobility and upon entering the clinic he does look safe and like he doing well with the crutches. States that he has been having quite a bit of pain and swelling in the knee. The exercises can be difficult to do but he is doing them. Took a shower this morning and noted to weaping from the incision site. They called Dr. Medellin's office and are going to see him after his
--- NOTE | 2021-07-09 10:34 | PCPTNOTE ---
Patient called & cancelled scheduled appointment for two weeks due to patient falling reopening incision giving patient time to heal. [ ]
--- NOTE | 2021-08-04 13:14 | PTOPEVAL ---
PHYSICAL THERAPY PROGRESS REPORT Thank you for referring Anselmo Henson to [facility].? Anselmo is here 7 weeks s/p right TKA and 4 weeks s/p procedure to reclose/reinforce incision site. He is ambulating independently and demonstrates nearly normal ROM. His HEP was updated and he will follow up in 3 weeks to determine further PT needs. Please review, sign, date and return this plan of care CARLY. I agree with and certify that the following plan of care is medically necessary. Referring Physician Date Attending Provider: Robbie Medellin MD Diagnosis right TKA Onset 06/16/21 Subjective Information Arslan is here today s/p 7 Query Text:As Reported By Patient/ weeks from right TKA and 4 Family weeks ago he fell and the incision burst open so he went back under anasthesia to have it irrigated and closed. He is ambulating with a single crutch today. He wants to talk about goals and talk about what is prognosis is. Self Report Pain Assessment Right Knee(s) Reported Pain Level 3 Greatest Pain Intensity 7 Pain Score Pain Score 3: Self Report Interventions Used Interventions Used By Clinicians Exercise Lower Extremity Range of Motion Knee Range of Motion Right Knee Flexion Range of Motion - Active 116 Knee Extension Range of Motion - Active -5 Query Text: Lower Extremity Muscle Strength Testing Hip Strength Right Hip Abduction Strength 3 Fair Left Hip Flexion Strength 5 Normal Hip Abduction Strength 3+ Fair + Knee Strength Right Knee Flexion Strength 5 Normal Knee Extension Strength 5 Normal Knee Strength Comments good quad set with good activation Gait Assessment Gait Pattern Assessment Other Gait Observations bilateral hip sway noted, left greater than right in left stance; otherwise no significant gait abnormalities Stair Climbing Assessment Stair Climbing Assessment Stair Climbing Assistive Devices None Weight Bearing Status - Left Full Weight Bearing Status - Right Full Technique Alternating Steps Stair Climbing Direction Both Up and Down Stair Climbing Ability Independent General Exercise General Exercises Side Right Exercise Location knee Exercise Type Active,Active/Assistive, Resistive,Stretching Exercise Description updated HEP Query Text:Record Sets, Reps, -bilateral heel raises, Resistance, and Position
--- NOTE | 2021-08-27 11:13 | PTOPEVAL ---
PHYSICAL THERAPY DISCHARGE NOTE Thank you for referring Anselmo Henson to [facility].?Please review, sign, date and return this discharge summary CARLY. I agree with and certify that the following plan of care is medically necessary. Referring Physician Date Attending Provider: Robbie Medellin MD Discharge Diagnosis right TKA Onset 06/16/21 Subjective Information Arslan reports that his right Query Text:As Reported By Patient/ knee is doing very well. 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 He is going for walks and doing his exercises for continued strengthening. He reports no pain, just some stretching in the knee when he goes down stairs. Pain Score Pain Score 0: Self Report Lower Extremity Range of Motion Knee Range of Motion Right Knee Flexion Range of Motion - Active 120 Knee Extension Range of Motion - Active 0 Query Text: Lower Extremity Muscle Strength Testing Hip Strength Right Hip Flexion Strength 5 Normal Hip Abduction Strength 4- Good - Left Hip Flexion Strength 5 Normal Hip Abduction Strength 4- Good - Knee Strength Right Knee Flexion Strength 5 Normal Knee Extension Strength 5 Normal Knee Strength Comments good quad set with good activation Other Gait Observations normal gait pattern; no antalgia; no Trendelenburg Stair Climbing Assessment Technique Alternating Steps Stair Climbing Direction Both Up and Down Stair Climbing Ability Independent PT Clinical Summary Anselmo no longer requires skilled physical therapy services. He is independent in HEP, has normal knee ROM and strength and good motor recruitment. He has returned to work and recreational activities. He will be discharged at this time.
== END 2021-08-27 13:45 | disposition home or self-care (01) ==
LOC: ANHPT 10:30
PROVIDERS: Visit Provider Orthopaedic Surgery
DX: Z47.1 Aftercare following joint replacement surgery (principal); Z96.651 Presence of right artificial knee joint
CPT/HCPCS: 97110; 97112; 97140; 97162; 97530

== ENCOUNTER 2022-06-18 09:06 | Outpatient (CLI) | payer OTHER, SELFPAY ==
[2022-06-18 10:32] LABS: Basophils Absolute Auto 0.1 K/mm3 (0.0-0.1); Basophils Percent Auto 0.8 % (0.2-1.2); Eosinophils Absolute Auto 0.4 K/mm3 (0-0.3); Eosinophils Percent Auto 4.4 % (0-4.4); Hematocrit 46.6 % (42.0-52.0); Hemoglobin 15.7 g/dL (14.0-18.0); Immature Granulocyte Absolute 0.04 K/mm3 (0.00-0.031); Immature Granulocyte Percent A 0.4 % (0-0.5); Lymphocytes Absolute Auto 2.53 K/mm3 (0.9-3.2); Lymphocytes Percent Auto 25.8 % (18.3-44.2); Mean Corpuscular HGB Conc 33.7 g/dl (32-36); Mean Corpuscular Hemoglobin 29.1 pg (26-34); Mean Corpuscular Volume 86.5 fl (80-100); Mean Platelet Volume 9.2 fl (7.4-10.4); Monocytes Absolute Auto 0.7 K/mm3 (0.1-0.6); Monocytes Percent Auto 7.5 % (2.6-8.5); Neutrophils Percent Auto 61.1 % (45.5-73.1); Platelet Count Result 276 k/mm3 (150-375); Red Blood Count 5.39 M/mm3 (4.6-6.20); Red Cell Distribution Width 13.3 % (11.5-14.5); White Blood Count 9.8 K/mm3 (4.5-10.0)
[2022-06-18 10:47] LABS: Alanine Aminotransferase 38 U/L (6-50); Albumin Level 4.8 g/dL (3.5-5.1); Alkaline Phosphatase 73 U/L (38-126); Anion Gap 7 mmol/L (8-16); Aspartate Amino Transferase 37 U/L (17-59); Bilirubin,Total 0.5 mg/dL (0.2-1.3); Blood Urea Nitrogen 18 mg/dL (9-20); Calcium 9.3 mg/dL (8.4-10.2); Carbon Dioxide 29 mmol/L (22-30); Chloride 105 mmol/L (98-107); Cholesterol 187 mg/dL (0-200); Estimated Glomerular Filt Rate > 60; Glucose 89 mg/dL (65-110); HDL Direct 24 mg/dL; Potassium 4.8 mmol/L (3.4-5.0); Sodium 141 mmol/L (137-145); Triglycerides 124 mg/dL (<150)
[2022-06-18 10:58] LABS: LDL Cholesterol Direct 120 mg/dL
[2022-06-18 11:04] LABS: Appearance Urine Clear (Clear); Bilirubin Urine Negative (Negative); Blood Urine Negative (Negative); Color Urine Yellow (Yellow); Glucose Urine UA Negative (Negative); Ketones Urine Negative (Negative); Leukocyte Esterase Ur Negative LEU/UL (NEGATIVE); Nitrate Urine Negative (Negative); Protein Urine 2+ mg/dL (Negative); Urobilinogen Urine 0.2 mg/dL (<2.0)
[2022-06-18 11:11] LABS: Bacteria Urine Trace /hpf; Mucus Urine Rare /lpf; Squamous Epithelial Cell Urine Rare /hpf (Few); WBC Urine 0-3 /hpf (0-3)
[2022-06-18 11:13] LABS: Add Urine Microscopic? YES
[2022-06-18 11:17] LABS: Prostate Specific Antigen 0.7 ng/mL (< OR = 4.0)
[2022-06-18 12:01] LABS: Folic Acid > 20.0 ng/mL (2.76->20)
== END 2022-06-18 09:07 | disposition home or self-care (01) ==
LOC: ANHLAB 09:06
PROVIDERS: PCP Nurse Practitioner Family; Visit Provider Nurse Practitioner Family
DX: Z00.00 Encounter for general adult medical examination without abnormal findings (principal); Z13.0 Encounter for screening for diseases of the blood and blood-forming organs and certain disorders involving the immune mechanism; E78.5 Hyperlipidemia, unspecified; I10 Essential (primary) hypertension; Z12.5 Encounter for screening for malignant neoplasm of prostate
CPT/HCPCS: 36415; 80053; 80061; 81001; 82607; 82746; 84153; 84443; 85025; G0103

== ENCOUNTER → 2023-05-17 10:24 | Outpatient (CLI) | payer OTHER, SELFPAY ==
--- NOTE | ~2023-05-17 | US_ITS ---
EXAMINATION: US carotid duplex BI DATE: 05/17/2023 11:13 INDICATION: Prior transient ischemic episode. TECHNIQUE: Grayscale, color Doppler, and pulsed Doppler images of the cervical carotid arteries were obtained. The degree of vessel stenosis is placed in one of the following categories: normal, <50%, 5 0-69%, >=70% but less than near-occlusion, near-occlusion, or total occlusion. Note that percent sten osis relative to normal distal artery lumen diameter is indirectly measured from velocity measurement s as described by Niranjan, et al. Radiology 2003; 229:340-346. COMPARISON: None. FINDINGS: RIGHT: The right common carotid artery (CCA) peak systolic velocity (PSV) is 78 cm/s. The right internal car otid artery (ICA) PSV is 160 cm/s. The right ICA end-diastolic velocity (EDV) is 37 cm/s. The right I CA/CCA PSV ratio is 2.0. Grayscale and color Doppler images yield an estimate of 50-69% diameter redu ction from plaque in the ICA. The external carotid artery (ECA) PSV is 127 cm/s. There is antegrade f low in the right vertebral artery. LEFT: The left CCA PSV is 108 cm/s. The left ICA PSV is 70 cm/s. The left ICA EDV is 18 cm/s. The left ICA/ CCA PSV ratio is 0.7. Grayscale and color Doppler images yield an estimate of <50% diameter reduction from plaque in the ICA. The ECA PSV is 146 cm/s. There is antegrade flow in the left vertebral arter y. IMPRESSION: 1. 50-69% stenosis in the right internal carotid artery. 2. <50% stenosis in the left internal carotid artery. Reviewed, dictated and finalized at location A. NING ASSISTANT
== END ==
PROVIDERS: PCP Nurse Practitioner Family; Visit Provider Nurse Practitioner Family
DX: I65.23 Occlusion and stenosis of bilateral carotid arteries (principal); Z86.73 Personal history of transient ischemic attack (TIA), and cerebral infarction without residual deficits
CPT/HCPCS: 93880

== ENCOUNTER → 2023-06-21 15:41 | Outpatient (CLI) | payer OTHER, SELFPAY ==
--- NOTE | ~2023-06-21 | XR_ITS ---
EXAMINATION: XR ankle LT 2V, XR foot LT min 3V DATE: 06/21/2023 15:55 INDICATION: Left foot and ankle pain TECHNIQUE: 1. Anteroposterior, mortise, additional oblique and lateral view of the left ankle were obtained. 2. Dorsoplantar, two oblique and lateral views of the left foot were obtained. COMPARISON: None. FINDINGS: Old healed distal tibial diaphyseal fracture which is healed in near-anatomic alignment with only mil d residual deformity. Otherwise normal alignment at the left foot and ankle. No acute fracture. Mild polyarticular osteoarthritis at the left ankle and majority of the joints throughout the left foot. M oderate to large Achilles and plantar calcaneal spurs. Hypertrophic change at the distal tip the medi al malleolus and tiny ossicle at the tip of the lateral malleolus which could represent sequela of ad ditional chronic enthesopathy or of prior medial and lateral ankle sprains. Soft tissues are unremark able. No ankle joint effusion. IMPRESSION: 1. Old healed distal tibial diaphyseal fracture. No acute osseous abnormality at the left foot and an kle. 2. Degenerative changes including mild polyarticular osteoarthritis throughout the left foot and prom inent enthesophytes at the ankle and posterior calcaneus. Reviewed, dictated and finalized at location A. T PERFORMER IMPRESSION: 1. Old healed distal tibial diaphyseal fracture. No acute osseous abnormality a t the left foot and ankle. 2. Degenerative changes including mild polyarticular osteoarthritis throughout the left foot and prominent enthesophytes at the ankle and posterior calcaneus.
== END ==
PROVIDERS: PCP Nurse Practitioner Family; Visit Provider Nurse Practitioner Family
DX: M19.072 Primary osteoarthritis, left ankle and foot (principal); S89.102D Unspecified physeal fracture of lower end of left tibia, subsequent encounter for fracture with routine healing; X58.XXXD Exposure to other specified factors, subsequent encounter
CPT/HCPCS: 73600; 73630

== ENCOUNTER 2023-06-24 08:34 | Outpatient (CLI) | payer OTHER, SELFPAY ==
[2023-06-24 09:43] LABS: Basophils Absolute Auto 0.1 K/mm3 (0.0-0.1); Basophils Percent Auto 0.7 % (0.2-1.2); Eosinophils Absolute Auto 0.3 K/mm3 (0-0.3); Eosinophils Percent Auto 2.1 % (0-4.4); Hematocrit 43.9 % (42.0-52.0); Hemoglobin 14.4 g/dL (14.0-18.0); Immature Granulocyte Absolute 0.05 K/mm3 (0.00-0.031); Immature Granulocyte Percent A 0.4 % (0-0.5); Lymphocytes Absolute Auto 4.65 K/mm3 (0.9-3.2); Lymphocytes Percent Auto 36.2 % (18.3-44.2); Mean Corpuscular HGB Conc 32.8 g/dl (32-36); Mean Corpuscular Hemoglobin 29.3 pg (26-34); Mean Corpuscular Volume 89.2 fl (80-100); Mean Platelet Volume 9.6 fl (7.4-10.4); Monocytes Absolute Auto 0.8 K/mm3 (0.1-0.6); Monocytes Percent Auto 6.3 % (2.6-8.5); Neutrophils Percent Auto 54.3 % (45.5-73.1); Platelet Count Result 267 k/mm3 (150-375); Red Blood Count 4.92 M/mm3 (4.6-6.20); Red Cell Distribution Width 12.7 % (11.5-14.5); White Blood Count 12.8 K/mm3 (4.5-10.0)
[2023-06-24 09:48] LABS: Appearance Urine Clear (Clear); Bacteria Urine None Seen /hpf; Bilirubin Urine Negative (Negative); Blood Urine Negative (Negative); Color Urine Dark Yellow (Yellow); Glucose Urine UA Negative (Negative); Ketones Urine Trace mg/dL (Negative); Leukocyte Esterase Ur Negative LEU/UL (NEGATIVE); Nitrate Urine Negative (Negative); Non Pathogenic Casts 0-2; Protein Urine Trace mg/dL (Negative); RBC Urine 0-2 /hpf (0-2); Specific Grav Ur 1.031 (1.001-1.035); Squamous Epithelial Cell Urine None seen /hpf (Few); Urobilinogen Urine 0.2 mg/dL (<2.0); WBC Urine 0-5 /hpf (0-3)
[2023-06-24 09:49] LABS: Add Urine Microscopic? YES
[2023-06-24 09:58] LABS: Alanine Aminotransferase 38 U/L (6-50); Albumin Level 4.4 g/dL (3.5-5.1); Alkaline Phosphatase 63 U/L (38-126); Anion Gap 8 mmol/L (8-16); Aspartate Amino Transferase 50 U/L (17-59); Bilirubin,Total 0.6 mg/dL (0.2-1.3); Blood Urea Nitrogen 26 mg/dL (9-20); Calcium 9.7 mg/dL (8.4-10.2); Carbon Dioxide 27 mmol/L (22-30); Chloride 106 mmol/L (98-107); Cholesterol 113 mg/dL (0-200); Estimated Glomerular Filt Rate > 60; Glucose 93 mg/dL (65-110); HDL Direct 31 mg/dL; Potassium 4.1 mmol/L (3.4-5.0); Sodium 141 mmol/L (137-145); Triglycerides 104 mg/dL (<150); Uric Acid 9.1 mg/dL (3.5-8.5)
[2023-06-24 10:06] LABS: LDL Cholesterol Direct 68 mg/dL
[2023-06-24 10:24] LABS: Prostate Specific Antigen 1.2 ng/mL (< OR = 4.0)
[2023-06-29 18:03] LABS: ANA Cascade Screen Negative (Negative)
[2023-06-29 22:02] LABS: CRP, High Sensitivity 2.3 mg/L (***)
== END 2023-06-24 08:35 | disposition home or self-care (01) ==
PROVIDERS: PCP Nurse Practitioner Family; Visit Provider Nurse Practitioner Family
DX: E78.5 Hyperlipidemia, unspecified (principal); I10 Essential (primary) hypertension; Z13.0 Encounter for screening for diseases of the blood and blood-forming organs and certain disorders involving the immune mechanism; Z13.29 Encounter for screening for other suspected endocrine disorder; Z12.5 Encounter for screening for malignant neoplasm of prostate; E53.8 Deficiency of other specified B group vitamins; M25.50 Pain in unspecified joint; R79.82 Elevated C-reactive protein (CRP)
CPT/HCPCS: 36415; 80053; 80061; 81001; 82607; 84153; 84443; 84550; 85025; 86038; 86141; 86225; 86235; 86364; G0103

== ENCOUNTER 2023-10-10 11:40 | Outpatient (CLI) | payer OTHER, SELFPAY ==
[2023-10-10 12:52] LABS: Alanine Aminotransferase 44 U/L (6-50); Albumin Level 4.6 g/dL (3.5-5.1); Alkaline Phosphatase 78 U/L (38-126); Anion Gap 7 mmol/L (4-12); Aspartate Amino Transferase 39 U/L (17-59); Bilirubin,Total 0.5 mg/dL (0.2-1.3); Blood Urea Nitrogen 21 mg/dL (9-20); Calcium 9.6 mg/dL (8.4-10.2); Carbon Dioxide 25 mmol/L (22-30); Chloride 109 mmol/L (98-107); Estimated Glomerular Filt Rate > 60; Glucose 95 mg/dL (65-110); Potassium 4.2 mmol/L (3.4-5.0); Sodium 141 mmol/L (137-145); Uric Acid 4.9 mg/dL (3.5-8.5)
== END 2023-10-10 11:41 | disposition home or self-care (01) ==
LOC: ANHLAB 11:42
PROVIDERS: PCP Nurse Practitioner Family; Visit Provider Podiatrist Foot & Ankle Surgery
DX: M10.079 Idiopathic gout, unspecified ankle and foot (principal)
CPT/HCPCS: 36415; 80053; 84550

== ENCOUNTER → 2024-02-13 10:05 | Outpatient (CLI) | payer OTHER, SELFPAY ==
--- NOTE | ~2024-02-13 | XR_ITS ---
3 VIEWS THORACIC SPINE Ordering provider: Donny Graham MD History: . T5 right thoracic radiculitis after sneeze . Comparison: None. FINDINGS: VERTEBRAL BODIES: Normal height and alignment. No visible fracture or subluxation. Degenerative topete es of the spine. DISH is seen in the cervical area. Ossification of the anterior longitudinal ligamen t is seen DISK SPACES: Normal. SOFT TISSUES: Normal. IMPRESSION: No acute osseous abnormality of the thoracic spine. Degenerative changes of the spine with ossification of the ligaments. Ankylosing spondylitis should b e considered. Clinical evaluation advised. Reviewed, dictated and finalized at location A. IMPRESSION: No acute osseous abnormality of the thoracic spine. Degenerative changes of the spine with ossification of the ligaments. Ankylosin g spondylitis should be considered. Clinical evaluation advised.
== END ==
LOC: EXPTRAD 10:07
PROVIDERS: PCP Family Medicine; Visit Provider Family Medicine
DX: M48.12 Ankylosing hyperostosis [Forestier], cervical region (principal); M67.88 Other specified disorders of synovium and tendon, other site; M54.17 Radiculopathy, lumbosacral region
CPT/HCPCS: 72072

== ENCOUNTER 2024-02-23 00:34 | Day surgery (SDC) | payer OTHER, SELFPAY ==
[2024-01-11 14:54] VITALS: BMI 34.0
[2024-02-03 14:49] VITALS: BMI 34.0
[2024-02-23 09:01] VITALS: BP 148/85; PULSE 80; RESP 16; TEMP 36.4; O2SAT 97
[2024-02-23] MEDS: LACTATED RINGERS 1,000 ML 150 ML IV CONT (09:12)
--- NOTE | 2024-02-23 09:17 | P.PNAN_ITS ---
Anes - Initial Pre Proc Eval Procedure: Operation Date: 02/23/24 10:30 Proposed Procedures p Screening Colonoscopy - Emre Hutchison DO Date/Time: 02/23/24 09:17 Surgeon: Emre Hutchison DO Pre Op Diagnosis: screening for malignant neoplasm of colon Patient Data Age: 63 Gender: M Height: 1.83 m Weight: 122.4 kg Last Vital Signs Temp 36.4 C 02/23/24 09:01 Pulse 80 02/23/24 09:01 Resp 16 02/23/24 09:01 BP 148/85 H 02/23/24 09:01 Pulse Ox 97 02/23/24 09:01 O2 Del Method Room Air 02/23/24 09:01 Allergies Allergy/AdvReac Type Severity Reaction Status Date / Time codeine AdvReac Mild DIZZY/SWEAT Verified 02/23/24 08:56 ING Home Medications Medication Instructions Recorded Confirmed Type ascorbic acid (vitamin C) 500 mg 500 mg PO BID 06/03/21 02/23/24 History tablet (Vitamin C) cholecalciferol (vitamin D3) 1 tab-cap PO DAILY 06/03/21 02/23/24 History aspirin 81 mg tablet,delayed 81 mg PO DAILY 03/17/23 02/23/24 History release atorvastatin 80 mg tablet 80 mg PO DAILY #90 tabs 05/10/23 02/23/24 Rx vitamin B complex (B 1 tablet PO DAILY 05/16/23 02/23/24 History Complex-Vitamin B12 tablet) lisinopril 40 mg tablet 40 mg PO DAILY #90 tabs 06/21/23 02/23/24 Rx allopurinol 100 mg tablet 100 mg PO TID 12/12/23 02/23/24 History amlodipine 5 mg tablet 5 mg PO DAILY #90 tabs 12/12/23 02/23/24 Rx cetirizine 10 mg tablet (Zyrtec) 10 mg PO DAILY PRN Allergy Symptoms 12/12/23 02/23/24 History coQ10 (liposomal ubiquinol) 1 cap PO DAILY 12/12/23 02/23/24 History cyclobenzaprine 10 mg tablet 10 mg PO TID PRN muscle spasm #30 02/13/24 02/23/24 Rx tabs hydrocodone 5 mg-acetaminophen 325 1 tablet PO Q8H PRN pain #10 tabs 02/13/24 02/23/24 Rx mg tablet prednisone 20 mg tablet 40 mg PO . q.a.m. #10 tabs 02/13/24 02/23/24 Rx Patient hx anesthesia problems: none Family hx anesthesia problems: none Results Review: All pre-operative results and documents have been reviewed as part of the pre- operative evaluation. [facility] Past Medical History Medical History Acute sinusitis Asymptomatic stenosis of right carotid artery B12 deficiency BMI 34.0-34.9,adult BMI 36.0-36.9,adult BMI 37.0-37.9, adult Colon cancer screening Edema of both feet Elevated C-reactive protein (CRP) Elevated WBC count Encounter to establish care Exposure to mold Gout Hypersomnia Hypertension Left ankle pain Left foot pain Obesity Obesity (BMI 30-39.9) Osteoarthritis of right knee Personal history of TIA (transient ischemic attack) Postoperative wound dehiscence right knee Prostate cancer screening Snoring Thoracic radiculitis (02/10/24) right T5 thoracic radiculitis after sneezing 02/10/2024. X-ray on 02/13/2024 reveals degenerative changes throughout the thoracic and cervical spine. 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 Patient's surrogate will be his Angelina who he has been to for about a year and a half. He does have 4 daughters and no pets at home. He is currently a full code. 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 Gender identity (if verbalized by the patient): Male Sexual Orientation (if Verbalized by the Patient): Straight or Heterosexual Spiritual care concerns: No Agree to blood products: Yes Anes - Eval Final PreProcedure Day of Procedure 02/23/24 09:17 Patient weight: obese Heart: regular rate and rhythm Lungs: clear to auscultation Airway: Mallampati scale class II Neurological: alert and oriented Last oral intake: >/= 8 hours ASA classification: III Emergent: no Anesthetic plan: proceed Anesthesia type and monitoring: general GIVS and standard monitoring Results Review: All pre-operative results and documents have been reviewed as part of the pre- operative evaluation. Informed Consent: The patient's anesthetic plan and its attendant risks and benefits were discussed with the patient/family/POA. Questions were solicited and answers provided to the satisfaction of the patient/family/POA.
--- NOTE | 2024-02-23 09:27 | PM.IMHP ---
H&P: HPI History of Present Illness Date/Time: 02/23/24 09:27 Chief Complaint: screening for colorectal cancer, family history of colon cancer Narrative: This is a 63-year-old man who presents for colonoscopy. His last colonoscopy was 11 years ago. His mother was found to have colon cancer since that last colonoscopy. He denies any hematochezia or melena. He denies any changes in bowel habits. Review of Systems Review of Systems: All systems reviewed & are unremarkable except as noted in HPI and below Constitutional: Constitutional: Denies chills, Denies fever(s), Denies headache(s) and Denies weight loss Eyes: Eyes: Denies change in vision ENT: Denies dizziness, Denies headache(s), Denies neck mass and Denies throat swelling Cardiovascular: Cardiovascular: Denies chest pain, Denies lightheadedness and Denies dyspnea Respiratory: Respiratory: Denies cough, Denies dyspnea and Denies wheezing Gastrointestinal: Gastrointestinal: Denies abdominal pain, Denies change in bowel habits, Denies nausea and Denies vomiting Genitourinary: Genitourinary: Denies hematuria and Denies dysuria Musculoskeletal: Musculoskeletal: Reports as per HPI Integumentary/Breasts: Skin/Breast: Reports as per HPI Neurologic: Denies dizziness and Denies headache(s) Allergic/Immunologic: Allergic/Immunologic: Denies throat swelling and Denies wheezing [facility] Past Medical History Medical History Acute sinusitis Asymptomatic stenosis of right carotid artery B12 deficiency BMI 34.0-34.9,adult BMI 36.0-36.9,adult BMI 37.0-37.9, adult Colon cancer screening Edema of both feet Elevated C-reactive protein (CRP) Elevated WBC count Encounter to establish care Exposure to mold Gout Hypersomnia Hypertension Left ankle pain Left foot pain Obesity Obesity (BMI 30-39.9) Osteoarthritis of right knee Personal history of TIA (transient ischemic attack) Postoperative wound dehiscence right knee Prostate cancer screening Snoring Thoracic radiculitis (02/10/24) right T5 thoracic radiculitis after sneezing 02/10/2024. X-ray on 02/13/2024 reveals degenerative changes throughout the thoracic and cervical spine. 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 Patient's surrogate will be his Angelina who he has been to for about a year and a half. He does have 4 daughters and no pets at home. He is currently a full code. 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 Gender identity (if verbalized by the patient): Male Sexual Orientation (if Verbalized by the Patient): Straight or Heterosexual Spiritual care concerns: No Agree to blood products: Yes Meds Home Medications and Allergies Home Medications Medication Instructions Recorded Confirmed Type ascorbic acid (vitamin C) 500 mg 500 mg PO BID 06/03/21 02/23/24 History tablet (Vitamin C) cholecalciferol (vitamin D3) 1 tab-cap PO DAILY 06/03/21 02/23/24 History aspirin 81 mg tablet,delayed 81 mg PO DAILY 03/17/23 02/23/24 History release atorvastatin 80 mg tablet 80 mg PO DAILY #90 tabs 05/10/23 02/23/24 Rx vitamin B complex (B 1 tablet PO DAILY 05/16/23 02/23/24 History Complex-Vitamin B12 tablet) lisinopril 40 mg tablet 40 mg PO DAILY #90 tabs 06/21/23 02/23/24 Rx allopurinol 100 mg tablet 100 mg PO TID 12/12/23 02/23/24 History amlodipine 5 mg tablet 5 mg PO DAILY #90 tabs 12/12/23 02/23/24 Rx cetirizine 10 mg tablet (Zyrtec) 10 mg PO DAILY PRN Allergy Symptoms 12/12/23 02/23/24 History coQ10 (liposomal ubiquinol) 1 cap PO DAILY 12/12/23 02/23/24 History cyclobenzaprine 10 mg tablet 10 mg PO TID PRN muscle spasm #30 02/13/24 02/23/24 Rx tabs hydrocodone 5 mg-acetaminophen 325 1 tablet PO Q8H PRN pain #10 tabs 02/13/24 02/23/24 Rx mg tablet prednisone 20 mg tablet 40 mg PO . q.a.m. #10 tabs 02/13/24 02/23/24 Rx Allergies Allergy/AdvReac Type Severity Reaction Status Date / Time codeine AdvReac Mild DIZZY/SWEAT Verified 02/23/24 08:56 ING Vital Signs Vital Signs - 24 hr 02/23/24 09:01 Temperature 97.6 F Pulse Rate 80 Respiratory Rate 16 Blood Pressure 148/85 H Pulse Oximetry 97 Oxygen Delivery Room Air Exam Const: General: no acute distress and alert Orientation/consciousness: patient oriented x3 HENMT: Head: normocephalic and atraumatic Ears: hearing grossly normal bilaterally Face/Nose/Sinus: Normal nares present Mouth: Yes Normal oral and palatal mucosa present Eyes: Periorbital: periorbital findings normal Sclera: sclerae normal EOM: EOMs intact bilaterally Neck: Neck: normal visual inspection, no lymphadenopathy and trachea midline Chest: Chest palpation & inspection: normal inspection of the chest Resp: Effort & Inspection: normal respiratory effort Auscultation: clear to auscultation bilaterally Cardio: Jugular venous distension: no JVD Rate: regular rate Rhythm: regular rhythm Heart sounds: S1 normal heart sound present and S2 normal heart sound present Peripheral pulses: Peripheral pulses 2+ throughout GI: Inspection: normal to inspection GI Palp: Yes Soft to palpation, No Tenderness to palpation present (GI), No Guarding due to palpation present (GI) and No Rebound tenderness present Percussion: Yes normal to percussion Auscultation: normal bowel sounds : General: Yes no CVA tenderness Back/Spine/Pelvis: Back: no CVA tenderness Neuro: General: patient oriented x3, no focal motor deficits and CN's II-XI intact bilaterally Cognition (Neuro): normal cognition Speech: normal speech Motor exam (neuro): 5/5 motor strength present throughout Extrem: General: capillary refill normal and no clubbing, cyanosis or edema Assessment and Plan Assessment and plan (1) Colon cancer screening: Code(s): Z12.11 - Encounter for screening for malignant neoplasm of colon Status: Acute Assessment and Plan: I have recommended colonoscopy. I have discussed the procedure, risks, benefits, and alternatives. Questions were answered. Patient is agreeable to proceed.
[2024-02-23 09:55] VITALS: BP 103/44; PULSE 67; RESP 14; O2SAT 95
[2024-02-23 10:05] VITALS: BP 107/66; PULSE 62; RESP 11; O2SAT 97
[2024-02-23 10:15] VITALS: BP 123/65; PULSE 64; RESP 12; O2SAT 98
== END 2024-02-23 10:38 | disposition home or self-care (01) ==
PROVIDERS: PCP Nurse Practitioner Family; Visit Provider Surgery
PROC: 0DJD8ZZ Inspection of Lower Intestinal Tract, Via Natural or Artificial Opening Endoscopic (ICD-10-PCS; CPT 45378; principal; 2024-02-23 10:30)
DX: Z12.11 Encounter for screening for malignant neoplasm of colon (principal); K63.5 Polyp of colon; K57.30 Diverticulosis of large intestine without perforation or abscess without bleeding; I10 Essential (primary) hypertension; M17.11 Unilateral primary osteoarthritis, right knee; E53.8 Deficiency of other specified B group vitamins; G47.10 Hypersomnia, unspecified; M47.812 Spondylosis without myelopathy or radiculopathy, cervical region; M47.816 Spondylosis without myelopathy or radiculopathy, lumbar region; E66.9 Obesity, unspecified; Z68.36 Body mass index [BMI] 36.0-36.9, adult; Z79.82 Long term (current) use of aspirin; Z79.891 Long term (current) use of opiate analgesic; Z79.52 Long term (current) use of systemic steroids; Z98.890 Other specified postprocedural states; Z95.5 Presence of coronary angioplasty implant and graft; Z86.79 Personal history of other diseases of the circulatory system; Z86.73 Personal history of transient ischemic attack (TIA), and cerebral infarction without residual deficits; Z80.0 Family history of malignant neoplasm of digestive organs
CPT/HCPCS: 45380; 88305; J2003; J2704; J7120

== ENCOUNTER 2024-03-23 08:01 | Outpatient (CLI) | payer OTHER, SELFPAY ==
[2024-04-02 12:36] VITALS: BMI 34.5
--- NOTE | 2024-04-02 12:36 | P.SLEEP_ITS ---
Sleep Study - Home Unattended Date of Study: 03/23/24 Ordering Provider: Mercy Pimentel NP Interpreting Provider: Monse Ramirez, DO Home Sleep Study Type: Watch CONSUELO Height: 1.83 m Weight: 115.666 kg Body Mass Index: 34.5 Neck Circumference (inches): 17.5 Industry: 15 Reason for Sleep Study Daytime hypersomnia Sleep History The patient is a 64-year-old male that had a sleep study ordered by his primary care for evaluation of sleep apnea. The patient denies awakening from sleep short of breath. He denies awakening at night with heartburn, belching or cough. He constantly snores loudly enough that others complain. He occasionally has trouble sleeping when he has a cold. He rarely wakes up gasping for air throughout the night. He occasionally has breathing problems at night observed by himself or others. He denies sweating excessively at night. He denies having heart palpitations or irregular heartbeats during the night. He occasionally falls asleep during the day but never while driving. He denies sleep paralysis and cataplexy. He rarely has trouble at school or work due to sleepiness. He occasionally experiences vivid dreamlike scenes upon awakening or falling asleep. He denies feeling afraid of going to sleep. He rarely has nightmares. He occasionally remembers his dreams. He rarely has thoughts racing through his mind. He rarely feels sad, depressed or anxious. He denies having muscular tension. He denies noticing parts of his body jerk. He occasionally kicks during the night. He rarely has crawling and aching feelings in his legs but never has leg pain during the night. He frequently grinds his teeth during sleep but never awakens with morning jaw pain. He is rarely bothered by pain during the day and rarely awakened by pain during the night. He denies waking up feeling stiff in the morning. He denies waking up with sore or achy muscles. He rarely wakes up with pain in the neck, spine and other joints. He goes to bed at 10:00 p.m. on weekdays and at 9:30 p.m. on the weekends. It takes him 10 minutes to fall asleep. He wakes up 3-4 times throughout the night to urinate and is able fall back asleep within 20 minutes. He wakes up at 6:30 a.m. on both weekdays and weekends. He will typically get 9 hours of sleep per night. He will stay in bed for 10 minutes after waking up in the morning. He currently lives with his . He denies consuming any caffeinated beverages within 2 hours of bedtime. He denies engaging in physical exercise before bedtime. He denies reading and watching television before falling asleep. He will take naps in the afternoon or the evening and they are refreshing. He consumes 8 oz of caffeinated tea per day. He denies tobacco, alcohol and recreational drug use. [facility] Past Medical History Medical History Acute sinusitis Asymptomatic stenosis of right carotid artery B12 deficiency BMI 34.0-34.9,adult BMI 36.0-36.9,adult BMI 37.0-37.9, adult Colon cancer screening Edema of both feet Elevated C-reactive protein (CRP) Elevated WBC count Encounter to establish care Exposure to mold Gout Hypersomnia Hypertension Left ankle pain Left foot pain Obesity Obesity (BMI 30-39.9) Osteoarthritis of right knee Personal history of TIA (transient ischemic attack) Postoperative wound dehiscence right knee Prostate cancer screening Snoring Thoracic radiculitis (02/10/24) right T5 thoracic radiculitis after sneezing 02/10/2024. X-ray on 02/13/2024 reveals degenerative changes throughout the thoracic and cervical spine. 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 Patient's surrogate will be his Angelina who he has been to for about a year and a half. He does have 4 daughters and no pets at home. He is currently a full code. 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[employer] Gender identity (if verbalized by the patient): Male Sexual Orientation (if Verbalized by the Patient): Straight or Heterosexual Spiritual care concerns: No Agree to blood products: Yes Medications Home Medications Medication Instructions Recorded Confirmed Type ascorbic acid (vitamin C) 500 mg 500 mg PO BID 06/03/21 02/23/24 History tablet (Vitamin C) cholecalciferol (vitamin D3) 1 tab-cap PO DAILY 06/03/21 02/23/24 History aspirin 81 mg tablet,delayed 81 mg PO DAILY 03/17/23 02/23/24 History release atorvastatin 80 mg tablet 80 mg PO DAILY #90 tabs 05/10/23 02/23/24 Rx vitamin B complex (B 1 tablet PO DAILY 05/16/23 02/23/24 History Complex-Vitamin B12 tablet) lisinopril 40 mg tablet 40 mg PO DAILY #90 tabs 06/21/23 02/23/24 Rx allopurinol 100 mg tablet 100 mg PO TID 12/12/23 02/23/24 History amlodipine 5 mg tablet 5 mg PO DAILY #90 tabs 12/12/23 02/23/24 Rx cetirizine 10 mg tablet (Zyrtec) 10 mg PO DAILY PRN Allergy Symptoms 12/12/23 02/23/24 History coQ10 (liposomal ubiquinol) 1 cap PO DAILY 12/12/23 02/23/24 History cyclobenzaprine 10 mg tablet 10 mg PO TID PRN muscle spasm #30 02/13/24 02/23/24 Rx tabs hydrocodone 5 mg-acetaminophen 325 1 tablet PO Q8H PRN pain #10 tabs 02/13/24 02/23/24 Rx mg tablet prednisone 20 mg tablet 40 mg PO . q.a.m. #10 tabs 02/13/24 02/23/24 Rx Sleep Procedure The sleep study was completed using [employer] a technically adequate device with seven channels: peripheral arterial tone, actigraphy, body position, snore, respiratory movement, pulse oximetry, sleep staging, and heart rate. Prior to using the device, the patient received verbal and written instructions for its application and was provided with the help desk phone number for additional telephonic instruction with 24-hour availability of qualified personnel to answer questions. The study was scored using CMS guidelines. Sleep Architecture The total recording time is 9 hrs, 30 min. The total sleep time is 8 hrs, 47 min. Sleep latency is 6 minutes. REM latency is 126 minutes. The patient had 15 episodes of waking. Sleep architecture shows 2.0% deep sleep, 82.9% light sleep, and (as % Total Sleep Time) showed NREM (Light 82.9%; Deep 2.0%), and a 15.1% stage REM. The patient spent 13.5% of total sleep time in the supine position. Sleep efficiency was 92.46. Respiratory Analysis The overall AHI (pAHI 4%:) is 66.5. The central AHI is 43.1. The AHI was 67.8 in NREM and 59.4 in REM sleep. The AHI was 67.2 in Supine and 66.9 in Non-supine sleep. Percent of Medhat Lujan respirations is 25.7. Oximetry Data The oxygen desaturation index (RONALDO 4%:) is 71.2. The mean saturation is 93%, and the lowest saturation is 79%. Time spent with saturation < 88% is 47.0 minutes. Snoring Profile Snoring average intensity is 47 dB. The patient snored above 45 decibels for 177.7 minutes, 33.7% of sleep time. Cardiac Profile The average pulse rate is 59 beats per minutes. The lowest pulse rate is 35 bpm. The highest pulse rate reported is 103 bpm. Suspected Afib total duration is 0:00:37, (h:m:sec). The longest Afibevent duration is 0:00:37. A-Fib events < 60 seconds may be artifact. Premature beats occur 0.2 per minute. Assessment and Plan Assessment and Plan (1) Central sleep apnea with Medhat-Lujan respiration: Code(s): R06.3 - Periodic breathing Status: Acute Assessment and Plan: The patient had an overall AHI of 66.5 with desaturation down to 79%. He had a central apnea index of 43.1, which is elevated (normal < 5). This is consistent with severe central sleep apnea. The patient had Medhat-Lujan respirations present for 25.7% of the study. The patient is not a candidate for AutoPAP. I recommend the patient have a CPAP titration study with the use of a hypnotic (Lunesta 2-3 mg or Ambien 5-10 mg) to ensure we obtain enough sleep data and find an optimal pressure. The patient needs had an echocardiogram done to evaluate for cardiogenic causes of central sleep apnea. Data The data obtained during this sleep study is adequate for interpretation. Certification This sleep study has been reviewed by a board certified sleep medicine physician.
== END 2024-03-26 12:49 | disposition home or self-care (01) ==
LOC: ANHCSM 08:01
PROVIDERS: PCP Family Medicine; Visit Provider Nurse Practitioner Family
DX: R06.3 Periodic breathing (principal); G47.10 Hypersomnia, unspecified; R06.83 Snoring; R06.81 Apnea, not elsewhere classified; Z68.36 Body mass index [BMI] 36.0-36.9, adult
CPT/HCPCS: 95800

== ENCOUNTER 2024-06-19 07:54 | Outpatient (CLI) | payer OTHER, SELFPAY ==
--- OUTSIDE RECORDS SUMMARY | 2024-06-19 08:00 | XMS_ITS | Patient Health Summary ---
Author Organization [facility] Address [address] [address] Care Team Providers Care Dietitian Research Name Role Phone Unavailable Primary Care Provider Unavailabl e Note from [facility],non-owned Affiliates and Associated Physician Practices is amultiple site organization consisting of ambulatory clinics and hospital sitesin [place], [place], [place] and [place]. This disclosure is being madepursuant to the Care Everywhere program and may not contain all information available regarding this patient. Last updated 18.[facility] [employer] Social History Tobacco Use Types Packs/Day Years Used Date Smoking Tobacco: Never Assessed Sex and Gender Information Value Date Recorded Sex Assigned at Not on file Gender Identity Not on file Sexual Orientation Not on file Procedures * DERMATOPATHOLOGY(Performed 04/10/2024) * DERMATOPATHOLOGY(Performed 03/12/2021) Results * DERMATOPATHOLOGY (04/10/2024 10:21 AM BREAST SPLITTER) Only the most recent of2 resultswithin the time period is included. Case Report Dermatopathology Report Case: [id number] Authorizing Provider: Ольга Malik DO Collected: 04/10/2024 10:21 AM Ordering Location: [facility] - Received: 04/10/2024 03:57 PM DermPath Lab Pathologist: Arturo Means MD Specimens: A) - Skin, left forearm proximal B) - Skin, left forearm distal 4 4:18 PM [facility] DERMATOPATHOLOGY LABORATORY Final Diagnosis Specimen A. SKIN, left forearm proximal: HYPERTROPHIC ACTINIC KERATOSIS, LICHENOID (L57.0) Specimen B. SKIN, left forearm distal: ACTINIC KERATOSIS, LICHENOID (L57.0) 4 4:18 PM [facility] DERMATOPATHOLOGY LABORATORY Clinical History A-B: NMSC 4 4:18 PM [facility] DERMATOPATHOLOGY LABORATORY Gross Description Specimen A: Received is one formalin filled container labeled with the patient's name and designated left forearm proximal. The specimen consists of a shave biopsy measuring 5x4x1 mm. Jar 0. Specimen B: Received is one formalin filled container labeled with the patient's name and designated left forearm distal. The specimen consists of a shave biopsy measuring 8x7x1 mm. Jar 0. 4 4:18 PM [facility] DERMATOPATHOLOGY LABORATORY Microscopic Description Specimen A. SKIN, left forearm proximal: There is focal parakeratosis. The lower half of the epidermis shows disorderly maturation of keratinocytes with nuclear pleomorphism. The dermis shows a band-like, chronic inflammatory infiltrate with occasional apoptotic keratinocytes and some basal vacuolar alteration. Specimen B. SKIN, left forearm distal: There is focal parakeratosis. The lower half of the epidermis shows disorderly maturation of keratinocytes with nuclear pleomorphism. The dermis shows a band-like, chronic inflammatory infiltrate with occasional apoptotic keratinocytes and some basal vacuolar alteration. 4 4:18 PM [facility] DERMATOPATHOLOGY LABORATORY Disclaimer An external and internal positive and negative controls are appropriate for the histochemical, immunohistochemical and immunofluorescence stain(s) in this case (if any), except where stated explicitly. The performance characteristics of the stain(s) cited in this report were developed and its performance characteristic determined by the Dermatopathology Laboratory at [facility], directed by Dr. Chino Means. These tests need not be, and therefore are not, approved by the [place] Food and Drug Administration. The tests are used for clinical purposes. Billing Codes Specimen Charges Stain Charges 11806 31361 1 1 4 4:18 PM [facility] DERMATOPATHOLOGY LABORATORY Embedded Images 4 4:18 PM [facility] DERMATOPATHOLOGY LABORATORY Pathology/Cytology TISSUE SPECIMEN FROM SKIN / Unknown 04/10/2024 10:21 AM BREAST SPLITTER 04/10/2024 3:57 PM [facility] SPLITTER Miscellaneous samples (specimen) TISSUE SPECIMEN FROM SKIN / Unknown 04/10/2024 10:21 AM BREAST SPLITTER 04/10/2024 3:57 PM BREAST SPLITTER Ольга Malik DO LAB - PATHOLOGY/C YTOLOGY ORDERABLES DERMATOPATHOLOGY LABORATORY [facility] - Department of Dermatology [facility] [address] [place] [address], [address] [phone]
--- OUTSIDE RECORDS SUMMARY | 2024-06-19 08:00 | XMS_ITS | Clinical Summary ---
Author Organization [facility] Address [address] [facility] [place] [address] Care Team Providers Care Chemistry Laboratory Technician Name Role Phone Unavailable Primary Care Provider Unavailabl e Source Comments [facility],non-owned Affiliates and Associated Physician Practices is amultiple site organization consisting of ambulatory clinics and hospital sitesin [place], [place], [place] and [place]. This disclosure is being madepursuant to the Care Everywhere program and may not contain all information available regarding this patient. Last updated 18.[facility] Encounters Date Type Department Care Team Description 04/10/2024 Lab Requisition [facility] - DermPath Lab [address] [place] [address] Ольга Malik DO from Last 3 Months Social History Tobacco Use Types Packs/Day Years Used Date Smoking Tobacco: Never Assessed Sex and Gender Information Value Date Recorded Sex Assigned at Not on file Gender Identity Not on file Sexual Orientation Not on file Plan of Treatment Health Maintenance Due Date Last Done Comments COLOGUARD (AGES 45-75) - COL ON CA SCREENING 1961 COLON MONITORING 1961 COLONOSCOPY - COLON CA SCREENING 1961 CT COLONOGRAPHY - COLON CA SCREENING 1961 Colorectal Cancer Screening 1961 FIT - COLON CA SCREENING 1961 FLEX SIG - COLON CA SCREENING 1961 LIPID TESTING 1961 HIV SCREENING 1976 HEPATITIS C SCREENING 03/04/1979 DTAP/TDAP/TD VACCINES (1 - Tdap) 1980 PNEUMOCOCCAL VACCINE 50+ (1 of 1 - PCV) 2011 ZOSTER VACCINE (1 of 2) 2011 COVID-19 VACCINE (1 - 2023-2 5 season) 2024 INFLUENZA VACCINE (#1) 2024 DEPRESSION SCREENING 05/02/2024 Respiratory Syncytial Virus (RSV) Vaccine Pt: or over 60 yrs (1 - 1-dose 75+ series) 2036 HEPATITIS B VACCINE Aged Out No longe r eligible based on patient's age to complete this topic HIB VACCINE Aged Out No longer eligi ble based on patient's age to complete this topic HPV VACCINE Aged Out No longer eligi ble based on patient's age to complete this topic MENINGOCOCCAL (Group B) VACCINE Aged Out No longer eligible based on patient's age to complete this topic MENINGOCOCCAL VACCINE Aged Out No prashanth josie eligible based on patient's age to complete this topic PNEUMOCOCCAL VACCINE Aged Out No long er eligible based on patient's age to complete this topic Procedures Procedure Name Priority Date/Time Associated Diagnosis Comments DERMATOPATHOLOGY Routine 04/10/2024 10:2 1 AM 1ST PRESSMAN ON WEB PRESS from Last 3 Months Results * DERMATOPATHOLOGY (04/10/2024 10:21 AM 1ST PRESSMAN ON WEB PRESS) Case Report Dermatopathology Report Case: [id number] Authorizing Provider: Ольга Malik DO Collected: 04/10/2024 10:21 AM Ordering Location: [facility] - Received: 04/10/2024 03:57 PM DermPath Lab Pathologist: Arturo Means MD Specimens: A) - Skin, left forearm proximal B) - Skin, left forearm distal 4 4:18 PM 1ST PRESSMAN ON WEB PRESS DERMATOPATHOLOGY LABORATORY Final Diagnosis Specimen A. SKIN, left forearm proximal: HYPERTROPHIC ACTINIC KERATOSIS, LICHENOID (L57.0) Specimen B. SKIN, left forearm distal: ACTINIC KERATOSIS, LICHENOID (L57.0) 4 4:18 PM 1ST PRESSMAN ON WEB PRESS DERMATOPATHOLOGY LABORATORY Clinical History A-B: NMSC 4 4:18 PM 1ST PRESSMAN ON WEB PRESS DERMATOPATHOLOGY LABORATORY Gross Description Specimen A: Received [...] 8x7x1 mm. Jar 0. 4 4:18 PM [facility] DERMATOPATHOLOGY LABORATORY Microscopic Description Specimen A. [...] some basal vacuolar alteration. 4 4:18 PM [facility] DERMATOPATHOLOGY LABORATORY Disclaimer An external and internal positive and negative controls are appropriate for the histochemical, immunohistochemical and immunofluorescence stain(s) in this case (if any), except where stated explicitly. The performance characteristics of the stain(s) cited in this report were developed and its performance characteristic determined by the Dermatopathology Laboratory at [facility], directed by Dr. Chino Means. These tests need not be, and therefore are not, approved by the [place] Food and Drug Administration. The tests are used for clinical purposes. Billing Codes Specimen Charges Stain Charges 33750 86552 1 1 4 4:18 PM 1ST PRESSMAN ON WEB PRESS DERMATOPATHOLOGY LABORATORY Embedded Images 4 4:18 PM 1ST PRESSMAN ON WEB PRESS DERMATOPATHOLOGY LABORATORY Pathology/Cytology TISSUE SPECIMEN FROM SKIN / Unknown 04/10/2024 10:21 AM 1ST PRESSMAN ON WEB PRESS 04/10/2024 3:57 PM 1ST PRESSMAN ON WEB PRESS Miscellaneous samples (specimen) TISSUE SPECIMEN FROM SKIN / Unknown 04/10/2024 10:21 AM 1ST PRESSMAN ON WEB PRESS 04/10/2024 3:57 PM 1ST PRESSMAN ON WEB PRESS Ольга Malik DO LAB - PATHOLOGY/C YTOLOGY ORDERABLES DERMATOPATHOLOGY LABORATORY [facility] - Department of Dermatology [facility] Medicine [address] [place] [address], [address] [phone] from Last 3 Months Anselmo Henson Personal/Family Self 1960
--- OUTSIDE RECORDS SUMMARY | 2024-06-19 08:00 | XMS_ITS | Continuity of Care Document ---
Author Organization [facility], [facility] Address [address] [place] [address] Phone Care Team Providers Care Data Management Engineer Name Role Phone Dwaine NGUYEN, Salvador Unavailable Unavailable Advance Directives Directive Yes / No Effective Date File Name No Information Encounters Encounter Description Practice Location Reason(s) For Visit Diagnoses Date Provider Providers Copied on Encounter [facility], [facility], [address] [place] [address], [id number], [place] tel:[phone] [facility] No Information Dwaine Franco. [address] [place] [address], [id number], [place]. tel:[phone] Family History Family Member Type Diagnosis Age At Onset No Information Payers Payer name Insurance type Covered alliance party ID Authoriza tion(s) No Information Social History Type Description Quantity Date Captured Comments Sex Male Smoking Status No Information Chief Complaint And Reason For Visit No Information Reason For Referral Reason For Referral No Information History Of Present Illness Encounter Date Complaint History Of Prese nt Illness No Information Functional Status Date Functional Assessmen t No Information Instructions Date Instruction Additional Infor mation No Information Assessments Type Assessment Date No Information Patient Care Teams Name Effective Dates (start - stop) Status Members No Information
--- OUTSIDE RECORDS SUMMARY | 2024-06-19 08:00 | XMS_ITS | Clinical Summary ---
Author Organization [facility] Address [address] [place] [address] Phone Care Team Providers Care Brush Sander Name Role Phone Unavailable Primary Care Provider Unavailabl e Allergies Active Allergy Reactions Criticality Noted Date Comments Mold Other (See Comments),Cough Low 11/29/2023 Increased sinus pressure , crust in eyes Medications lisinopriL (PRINIVIL) 40 mg tablet Take 40 mg by mouth daily. 02/27/2021 Active HYDROcodone-cory taminophen (NORCO) 5-325 mg tabletIndicatio ns:Foot pain, bilateral Take 1 Tablet by mouth every 8 hours as needed for Pain. Max Daily Amount: 3 Tablets 15 Tablet 03/10/2023 12:12 PM FOREIGN BANKNOTE TELLER 03/10/2023 Active atorvastatin (LIPITOR) 80 mg tablet 05/10/2023 Active amoxicillin-cla vulanate (AUGMENTIN) 875-125 mg tablet 05/30/2023 Active ascorbic acid, vitamin C, (VITAMIN C) 1,000 mg Tablet Take by mouth. Active allopurinoL (ZYLOPRIM) 100 mg tablet Take 1 Tablet by mouth 3 times daily. 10/13/2023 Active Active Problems Problem Noted Date Diagnosed Date Carotid stenosis, right 06/03/2023 Hyponatremia 03/06/2023 Cellulitis of left foot 03/06/2023 History of stroke without residual deficits 08/2022 Sepsis without acute organ dysfunction Cerebrovascular accident (CVA) 03/03/2023 Screening for prostate cancer 06/10/2019 Coronary atherosclerosis 12/18/2009 Overview (03/05/2023): s/p stenting prox. [facility]. In 2010 Hyperlipidemia 12/18/2009 Essential hypertension 11/12/2009 History of coronary artery stent placement 09/16 Overview (06/03/2023): MAGGIE in LCX 08/2009 Encounters Date Type Department Care Team Description 06/05/2024 External Device Data STL ABSTRACTION Provider, Abstract 05/24/2024 External Device Data STL ABSTRACTION Provider, Abstract 05/15/2024 External Device Data STL ABSTRACTION Provider, Abstract from Last 3 Months Family History Medical History Relation Name Comments Heart Disease Father Colon Cancer Mother Hypertension Mother Relation Name Status Comments Father Mother Social History Tobacco Use Types Packs/Day Years Used Date Smoking Tobacco: Never Smokeless Tobacco: Never Tobacco Cessation:Counseling Given: Not Answered Alcohol Use Standard Drinks/Week Comments Not Currently 0 (1 standard drink = 0.6 oz pur e alcohol) Feeling Safe Answer Date Recorded Are you in a relationship wi th someone who hurts you emotionally and/or physically? No 03/06/2023 Food Insecurity Answer Date Recorded Social/Environmental Concerns No concerns Transportation Needs Answer Date Record ed Social/Environmental Concerns No concerns Housing Stability Answer Date Recorded Social/Environmental Concerns No concerns Utility Needs Answer Date Recorded Social/Environmental Concerns No concerns Sex and Gender Information Value Date Recorded Sex Assigned at Not on file Legal Sex Male 9:30 PM CDT Gender Identity Not on file Sexual Orientation Not on file Last Filed Vital Signs Vital Sign Reading Time Taken Comments Blood Pressure 160/103 11/29/2023 9:38 AM CDT pt takes BP meds Pulse 59 11/29/2023 9:38 AM CDT Temperature 37 C (98.6 F) 03/10/2023 8:50 AM FOREIGN BANKNOTE TELLER Respiratory Rate 17 03/10/2023 8:50 AM FOREIGN BANKNOTE TELLER Oxygen Saturation 95% 11/29/2023 9:3 8 AM CDT Inhaled Oxygen Concentration - - Weight 111.1 kg (245 lb) 06/03/2023 2:3 3 PM FOREIGN BANKNOTE TELLER Height 182.9 cm (6') 06/03/2023 2:33 PM FOREIGN BANKNOTE TELLER Body Mass Index 33.23 06/03/2023 2:33 PM FOREIGN BANKNOTE TELLER Plan of Treatment Upcoming Encounters Date Type Department Care Team (Late st Contact Info) Description 11/27/2024 9:00 AM CDT Appointment [facility] Supp Svcs Blood Flow [address] [place] [address] Divina Chapa, ANA [address] [facility] [address] [place] [address] 11/27/2024 9:45 AM CDT Office Visit [facility] Pipeline Dispatch Operator [facility] [address] [place] [address] Divina Chapa, ANA [address] [facility] [address] [place] [address] Uche John MD [address] [address] Health Maintenance Due Date Last Done Comments DTAP/TDAP/TD VACCINES (1 - Tdap) 1980 FIT-DNA Q 3 years 2006 FIT/FOBT Q 1 year 2006 Flex Sig/CT Colonography Q 5 years 2006 ZOSTER VACCINE (1 of 2) 2011 RSV VACCINE (60+ or ) (1 - Risk 60-74 years 1-dose series) 2021 COLORECTAL SCREENING 09/18/2022 09/18/2012 Colorectal Cancer Screening 09/18/2022 INFLUENZA VACCINE (#1) 2023 , 01/15/2020, 01/23/2013, Additional history exists COVID-19 Vaccine (2 - season) 2024 07/16/2020 Pre-Diabetes and Diabetes Screening 03/02/2026 03/02/2023 PNEUMOCOCCAL VACCINE 0-64 YEARS Aged Out No longer eligible based on patient's age to complete this topic Procedures Procedure Name Priority Date/Time Associated Diagnosis Comments HEMOGLOBIN A1C Routine 03/02/2023 9:16 PM CDT from Last 3 Months or Most Recently Relevant to Health Maintenance Results * HEMOGLOBIN A1C (03/02/2023 9:16 PM CDT) HEMOGLOBIN A1C 5.5 <5.7 % 03/03/2023 3:34 AM CDT [facility] LABOR[facility]ORY [facility] EST. AVG GLUCOSE, A1C 111 mg/dL 03/03/2023 3:34 AM CDT [facility] Blood Venipuncture / Unknown 03/02/2023 9:16 PM CDT 03/02/2023 9:21 PM CDT Narrative [facility] - 03/03/2023 3:34 AM CDT HGB A1C INTERPRETATION NORMAL: <5.7% PRE-DIABETES: 5.7 - 6.4% DIABETES: 6.5% OR GREATER Mayo Campos MD CHEMISTRY ORDERABLES Final Result [facility] [employer] [facility] CLIA# [id number] [address] [place] [address] from Last 3 Months or Most Recently Relevant to Health Maintenance Insurance [employer] O OPEN ACCESS RX [facility] [employer] RX DUQUE PLANS (INTERNAL) [facility] Internal Plans Advance Directives For more information, please contact: [phone] * Full Code (Latest Code Status on File) Date Activated Date Inactivated Comments 03/06/2023 5:04 PM 03/10/2023 2:24 PM * Full Code Date Activated Date Inactivated Comments 03/03/2023 3:01 AM 03/05/2023 5:06 PM
--- OUTSIDE RECORDS SUMMARY | 2024-06-19 08:00 | XMS_ITS | Encounter Summary ---
Author Organization [facility] Address [address] [facility] [place] [address] Care Team Providers Care Special Education Associate Name Role Phone Unavailable Primary Care Provider Unavailabl e Encounter Details Date Type Department Care Team (Late st Contact Info) Description 04/10/2024 Lab Requisition [facility] Lab [address] [facility] [place] [address] Ольга Malik DO [address] [facility] [address] [place] [address] Social History Tobacco Use Types Packs/Day Years Used Date Smoking Tobacco: Never Assessed Sex and Gender Information Value Date Recorded Sex Assigned at Not on file Gender Identity Not on file Sexual Orientation Not on file documented as of this encounter Plan of Treatment Not on file documented as of this encounter Procedures Procedure Name Priority Date/Time Associated Diagnosis Comments DERMATOPATHOLOGY Routine 04/10/2024 10:2 1 AM KERSEY DEPARTMENT SUPERVISOR documented in this encounter Results * DERMATOPATHOLOGY (04/10/2024 10:21 AM KERSEY DEPARTMENT SUPERVISOR) Case Report Dermatopathology Report Case: [id number] Authorizing Provider: Ольга Malik DO Collected: 04/10/2024 10:21 AM Ordering Location: [facility] - Received: 04/10/2024 03:57 PM DermPath Lab Pathologist: Arturo Means MD Specimens: A) - Skin, left forearm proximal B) - Skin, left forearm distal 4 4:18 PM KERSEY DEPARTMENT SUPERVISOR DERMATOPATHOLOGY LABORATORY Final Diagnosis Specimen A. SKIN, left forearm proximal: HYPERTROPHIC ACTINIC KERATOSIS, LICHENOID (L57.0) Specimen B. SKIN, left forearm distal: ACTINIC KERATOSIS, LICHENOID (L57.0) 4 4:18 PM KERSEY DEPARTMENT SUPERVISOR DERMATOPATHOLOGY LABORATORY Clinical History A-B: NMSC 4:18 PM [facility] DERMATOPATHOLOGY LABORATORY Gross Description Specimen A: Received [...] shave biopsy measuring 8x7x1 mm. Jar 0. 4:18 PM [facility] DERMATOPATHOLOGY LABORATORY Microscopic Description Specimen A. SKIN, [...] apoptotic keratinocytes and some basal vacuolar alteration. 4:18 PM [facility] DERMATOPATHOLOGY LABORATORY Disclaimer An external and internal positive and negative controls are appropriate for the histochemical, immunohistochemical and immunofluorescence stain(s) in this case (if any), except where stated explicitly. The performance characteristics of the stain(s) cited in this report were developed and its performance characteristic determined by the Dermatopathology Laboratory at [facility], directed by Dr. Chino Means. These tests need not be, and therefore are not, approved by the [place] Food and Drug Administration. The tests are used for clinical purposes. Billing Codes Specimen Charges Stain Charges 98262 72611 1 1 4 4:18 PM KERSEY DEPARTMENT SUPERVISOR DERMATOPATHOLOGY LABORATORY Embedded Images 4:18 PM [facility] DERMATOPATHOLOGY LABORATORY Pathology/Cytology TISSUE SPECIMEN FROM SKIN / Unknown 04/10/2024 10:21 AM KERSEY DEPARTMENT SUPERVISOR 04/10/2024 3:57 PM KERSEY DEPARTMENT SUPERVISOR Miscellaneous samples (specimen) TISSUE SPECIMEN FROM SKIN / Unknown 04/10/2024 10:21 AM KERSEY DEPARTMENT SUPERVISOR 04/10/2024 3:57 PM KERSEY DEPARTMENT SUPERVISOR Ольга Griselda Malik DO LAB - PATHOLOGY/C YTOLOGY ORDERABLES DERMATOPATHOLOGY LABORATORY [facility] - Department of Dermatology [facility] Medicine [address] [place] [address], [address] [phone] documented in this encounter Visit Diagnoses Not on filedocumented in this encounter
--- OUTSIDE RECORDS SUMMARY | 2024-06-19 08:00 | XMS_ITS | Referral Summary ---
Author Organization [facility] Address [address] [place] [address] Care Team Providers Care Business Division Chair Name Role Phone Unavailable Primary Care Provider Unavailabl e Source Comments [facility],non-owned Affiliates and Associated Physician Practices is amultiple site organization consisting of ambulatory clinics and hospital sitesin [place], [place], [place] and [place]. This disclosure is being madepursuant to the Care Everywhere program and may not contain all information available regarding this patient. Last updated 18.[facility] Encounters Date Type Department Care Team Description 04/10/2024 Lab Requisition [facility] - DermPath Lab [address] [place] [address] Ольга Malik DO from Last 3 Months Social History Tobacco Use Types Packs/Day Years Used Date Smoking Tobacco: Never Assessed Sex and Gender Information Value Date Recorded Sex Assigned at Not on file Gender Identity Not on file Sexual Orientation Not on file Plan of Treatment Not on file Procedures Procedure Name Priority Date/Time Associated Diagnosis Comments DERMATOPATHOLOGY Routine 04/10/2024 10:2 1 AM CORE RESCUER from Last 3 Months Results * DERMATOPATHOLOGY (04/10/2024 10:21 AM CORE RESCUER) Case Report Dermatopathology Report Case: [id number] Authorizing Provider: Ольга Malik DO Collected: 04/10/2024 10:21 AM Ordering Location: [facility] - Received: 04/10/2024 03:57 PM DermPath Lab Pathologist: Arturo Means MD Specimens: A) - Skin, left forearm proximal B) - Skin, left forearm distal 4:18 PM CORE RESCUER DERMATOPATHOLOGY LABORATORY Final Diagnosis Specimen A. SKIN, left forearm proximal: HYPERTROPHIC ACTINIC KERATOSIS, LICHENOID (L57.0) Specimen B. SKIN, left forearm distal: ACTINIC KERATOSIS, LICHENOID (L57.0) 4 4:18 PM [facility] DERMATOPATHOLOGY LABORATORY Clinical History A-B: NMSC 4:18 PM [facility] DERMATOPATHOLOGY LABORATORY Gross Description Specimen A: [...] measuring 8x7x1 mm. Jar 0. 4:18 PM [facility] DERMATOPATHOLOGY LABORATORY Microscopic Description Specimen A. [...] and some basal vacuolar alteration. 4:18 PM [facility] DERMATOPATHOLOGY LABORATORY Disclaimer An external and internal positive and negative controls are appropriate for the histochemical, immunohistochemical and immunofluorescence stain(s) in this case (if any), except where stated explicitly. The performance characteristics of the stain(s) cited in this report were developed and its performance characteristic determined by the Dermatopathology Laboratory at [facility], directed by Dr. Chino Means. These tests need not be, and therefore are not, approved by the [place] Food and Drug Administration. The tests are used for clinical purposes. Billing Codes Specimen Charges Stain Charges 66530 13481 1 1 4 4:18 PM [facility] DERMATOPATHOLOGY LABORATORY Embedded Images 4:18 PM [facility] DERMATOPATHOLOGY LABORATORY Pathology/Cytology TISSUE SPECIMEN FROM SKIN / Unknown 04/10/2024 10:21 AM CORE RESCUER 04/10/2024 3:57 PM CORE RESCUER Miscellaneous samples (specimen) TISSUE SPECIMEN FROM SKIN / Unknown 04/10/2024 10:21 AM CORE RESCUER 04/10/2024 3:57 PM CORE RESCUER Ольга Malik DO LAB - PATHOLOGY/C YTOLOGY ORDERABLES DERMATOPATHOLOGY LABORATORY [facility] - Department of Dermatology [facility] Medicine [address] [place] [address], 3rd Floor [place], [place] [id number] [place] [address] from Last 3 Months Anselmo Henson Personal/Family Self 1960
== END 2024-06-20 07:08 | disposition home or self-care (01) ==
LOC: ANHCSM 07:55
PROVIDERS: PCP Family Medicine; Visit Provider Nurse Practitioner Family
DX: R06.3 Periodic breathing (principal); Z68.36 Body mass index [BMI] 36.0-36.9, adult; R06.83 Snoring; G47.10 Hypersomnia, unspecified
CPT/HCPCS: 95811

== ENCOUNTER 2024-08-14 08:35 | Outpatient (CLI) | payer OTHER, SELFPAY ==
--- OUTSIDE RECORDS SUMMARY | 2024-08-14 08:51 | XMS_ITS | Clinical Summary ---
Author Organization [facility] Address [address] [place] [address] Phone Care Team Providers Care Ship Washer Name Role Phone Unavailable Primary Care Provider [...] 3 Tablets 15 Tablet 03/10/2023 12:12 PM MANAGER HOUSE 03/10/2023 Active atorvastatin (LIPITOR) 80 mg tablet [...] Encounters Date Type Department Care Team Description 07/11/2024 External Device Data STL ABSTRACTION Provider, Abstract 07/10/2024 External Device Data STL ABSTRACTION Provider, Abstract 06/20/2024 External Device Data STL ABSTRACTION Provider, Abstract 06/05/2024 External Device Data STL ABSTRACTION Provider, [...] 37 C (98.6 F) 03/10/2023 8:50 AM MANAGER HOUSE Respiratory Rate 17 03/10/2023 8:50 AM MANAGER HOUSE Oxygen Saturation 95% 11/29/2023 9:3 8 AM CDT Inhaled Oxygen Concentration - - Weight 111.1 kg (245 lb) 06/03/2023 2:3 3 PM MANAGER HOUSE Height 182.9 cm (6') 06/03/2023 2:33 PM MANAGER HOUSE Body Mass Index 33.23 06/03/2023 2:33 PM MANAGER HOUSE Plan of Treatment Upcoming Encounters Date Type Department Care Team (Late st Contact Info) Description 11/27/2024 9:00 AM CDT Appointment [facility] Supp Svcs Blood Flow [address] [place] [address] Divina Chapa APN [address] [facility] [address] [place] [address] 11/27/2024 9:45 AM CDT Office Visit [facility] Professional Housing Consultant [facility] [address] [facility] [address] [place] [address] Divina Chapa APN [address] [facility] [address] [place] [address] Uche John MD [address] [facility] [address] [place] [address] Health Maintenance Due Date Last Done [...] Additional history exists COVID-19 Vaccine (2 - 4-25 season) 2024 07/16/2020 Pre-Diabetes and Diabetes Screening 03/02/2026 03/02/2023 PNEUMOCOCCAL VACCINE 0-49 YEARS Aged Out No longer eligible based on patient's age to complete this topic Procedures Procedure Name Priority Date/Time Associated Diagnosis Comments HEMOGLOBIN A1C Routine 03/02/2023 9:16 PM CDT from Last 3 Months or Most Recently Relevant to Health Maintenance Results * HEMOGLOBIN A1C (03/02/2023 9:16 PM CDT) HEMOGLOBIN A1C 5.5 <5.7 % 03/03/2023 3:34 AM CDT [facility] EST. AVG GLUCOSE, A1C 111 mg/dL 03/03/2023 3:34 AM CDT [facility] Blood Venipuncture / Unknown 03/02/2023 9:16 PM CDT 03/02/2023 9:21 PM CDT Narrative [facility] - 03/03/2023 3:34 AM CDT HGB A1C INTERPRETATION NORMAL: <5.7% PRE-DIABETES: 5.7 - 6.4% DIABETES: 6.5% OR GREATER Mayo Campos MD CHEMISTRY ORDERABLES Final Result [facility] [employer] [facility]# [id number] [address] [place] [address] from Last 3 Months or Most Recently Relevant to Health Maintenance Insurance [employer] O OPEN ACCESS RX [facility] [employer] RX [employer] PLANS (INTERNAL) [facility] Internal Plans Advance Directives For more information, please contact: [phone] * Full Code (Latest Code Status on File) Date Activated Date Inactivated Comments 03/06/2023 5:04 PM 03/10/2023 2:24 PM * Full Code Date Activated Date Inactivated Comments 03/03/2023 3:01 AM 03/05/2023 5:06 PM
--- OUTSIDE RECORDS SUMMARY | 2024-08-14 08:51 | XMS_ITS | Continuity of Care Document ---
Author Organization [facility], [facility] Address [address] [place] [address] Phone Care Team Providers Care Sales Recruiter Name Role Phone Dwaine NGUYEN, Salvador Unavailable Unavailable Advance Directives Directive Yes / No Effective Date File Name No Information Encounters Encounter Description Practice Location Reason(s) For Visit Diagnoses Date Provider Providers Copied on Encounter [facility], [facility], [address] [place] [address], [id number], [place] tel:[phone] [facility] No Information Dwaine Franco. [address] [place] [address], [id number], [place]. tel:[phone] Family History Family Member Type Diagnosis Age At Onset No Information Payers Payer name Insurance type Covered democrat ID Authoriza tion(s) No Information Social History [...]
--- OUTSIDE RECORDS SUMMARY | 2024-08-14 08:51 | XMS_ITS | Clinical Summary ---
Author Organization [facility] Address [address] [place] [address] Care Team Providers Care Loss Control Manager Name Role Phone Unavailable Primary Care Provider Unavailabl e Source Comments [facility],non-owned Affiliates and Associated Physician Practices is amultiple site organization consisting of ambulatory clinics and hospital sitesin [place], [place], [place] and [place]. This disclosure is being madepursuant to the Care Everywhere program and may not contain all information available regarding this patient. 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 Gender Identity Not on file Sexual Orientation [...] VACCINE (1 of 2) 2011 COVID-19 VACCINE ( - 2023-2 5 season) 2024 DEPRESSION SCREENING 05/02/2024 INFLUENZA VACCINE (Season Ended) 2024 Respiratory Syncytial Virus (RSV) Vaccine Pt: or [...] to complete this topic MENINGOCOCCAL (Group B) VACC INE SHARED DECISION-MAKING Aged Out No longer eligibl e based on patient's age to complete this topic MENINGOCOCCAL GROUPS A/C/Y/W VACCINE Aged Out No longer eligible b ased on patient's age to complete this topic PNEUMOCOCCAL VACCINE Aged Out No long er eligible based on patient's age to complete this topic Insurance [employer] HE[employer]LINK SELF PAY NO INSURANCE Member Subscriber Plan / Payer (Ef fective for All Dates) Name:Paula Perrin Member ID:Not on file Relation to Subscriber:Not on file Name:PAULA PERRIN Subscriber ID:Not on file (Home) Address: [facility] [address] [place] [id number] Payer ID:Not on file Group ID:Not on file Type:Self Pay Address: [place], [place]
--- OUTSIDE RECORDS SUMMARY | 2024-08-14 08:51 | XMS_ITS | Encounter Summary ---
Author Organization [facility] Address [address] [facility] [place] [address] Care Team Providers Care Proposal Director Name Role Phone Unavailable Primary Care Provider Unavailabl e Encounter Details Date Type Department Care Team (Late st Contact Info) Description 04/10/2024 Lab Requisition [facility] - DermPath Lab [address] [facility], [place] [address] Ольга Malik DO [address] 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 Gender Identity Not on file Sexual Orientation Not on file documented as of this encounter Plan of Treatment Not on file documented as of this encounter Procedures Procedure Name Priority Date/Time Associated Diagnosis Comments DERMATOPATHOLOGY Routine 04/10/2024 10:2 1 AM CLIENT SUCCESS SPECIALIST documented in this encounter Results * DERMATOPATHOLOGY (04/10/2024 10:21 AM CLIENT SUCCESS SPECIALIST) Case Report Dermatopathology Report Case: [id number] Authorizing Provider: Ольга Malik DO Collected: 04/10/2024 10:21 AM Ordering Location: [facility] - Received: 04/10/2024 03:57 PM DermPath Lab Pathologist: Arturo Means MD Specimens: A) - Skin, left forearm proximal B) - Skin, left forearm distal 4 4:18 PM CLIENT SUCCESS SPECIALIST DERMATOPATHOLOGY LABORATORY Final Diagnosis Specimen A. SKIN, left forearm proximal: HYPERTROPHIC ACTINIC KERATOSIS, LICHENOID (L57.0) Specimen B. SKIN, left forearm distal: ACTINIC KERATOSIS, LICHENOID (L57.0) 4 4:18 PM [facility] DERMATOPATHOLOGY LABORATORY Clinical History A-B: NMSC 4 4:18 PM [facility] DERMATOPATHOLOGY [...] characteristic determined by the Dermatopathology Laboratory at [facility], directed by Dr. Chino Means. These tests need not be, and therefore are not, approved by the [place] Food and Drug Administration. The tests are used for clinical purposes. Billing Codes Specimen Charges Stain Charges 14324 86386 1 1 4 4:18 PM [facility] DERMATOPATHOLOGY LABORATORY Embedded Images 4 4:18 PM [facility] DERMATOPATHOLOGY LABORATORY Pathology/Cytology TISSUE SPECIMEN FROM SKIN / Unknown 04/10/2024 10:21 AM CLIENT SUCCESS SPECIALIST 04/10/2024 3:57 PM [facility] Miscellaneous samples (specimen) TISSUE SPECIMEN FROM SKIN / Unknown 04/10/2024 10:21 AM CLIENT SUCCESS SPECIALIST 04/10/2024 3:57 PM CLIENT SUCCESS SPECIALIST us Ольга Malik DO LAB - PATHOLOGY/CYTOLOGY ORDERABLES Final Result DERMATOPATHOLOGY LABORATORY [facility] - Department of Dermatology Specialized Medicine [address] [place] [address], [address] [phone] documented in this encounter Visit Diagnoses Not on filedocumented in this encounter
[2024-08-14 09:10] LABS: Basophils Absolute Auto 0.1 K/mm3 (0.0-0.1); Basophils Percent Auto 0.8 % (0.2-1.2); Eosinophils Absolute Auto 0.4 K/mm3 (0-0.3); Eosinophils Percent Auto 4.3 % (0-4.4); Hemoglobin 14.7 g/dL (14.0-18.0); Immature Granulocyte Absolute 0.03 K/mm3 (0.00-0.031); Immature Granulocyte Percent A 0.3 % (0-0.5); Lymphocytes Absolute Auto 2.55 K/mm3 (0.9-3.2); Lymphocytes Percent Auto 25.4 % (18.3-44.2); Mean Corpuscular HGB Conc 32.7 g/dl (32-36); Mean Corpuscular Hemoglobin 29.9 pg (26-34); Mean Corpuscular Volume 91.5 fl (80-100); Mean Platelet Volume 9.1 fl (7.4-10.4); Monocytes Absolute Auto 0.6 K/mm3 (0.1-0.6); Monocytes Percent Auto 6.3 % (2.6-8.5); Neutrophils Absolute Auto 6.3 K/mm3 (1.3-6.7); Neutrophils Percent Auto 62.9 % (45.5-73.1); Platelet Count Result 260 k/mm3 (150-375); Red Blood Count 4.92 M/mm3 (4.6-6.20); Red Cell Distribution Width 13.3 % (11.5-14.5)
[2024-08-14 09:11] LABS: Add Urine Microscopic? NO; Appearance Urine Clear (Clear); Bilirubin Urine Negative (Negative); Blood Urine Negative (Negative); Color Urine Yellow (Yellow); Glucose Urine UA Negative (Negative); Ketones Urine Negative (Negative); Leukocyte Esterase Ur Negative LEU/UL (Negative); Nitrate Urine Negative (Negative); Protein Urine Negative (Negative); Specific Grav Ur 1.015 (1.001-1.035); Urobilinogen Urine 0.2 mg/dL (<2.0)
[2024-08-14 09:23] LABS: Hemoglobin A1C 5.9 % (<5.7)
[2024-08-14 09:25] LABS: Alanine Aminotransferase 54 U/L (6-50); Albumin Level 4.6 g/dL (3.5-5.1); Alkaline Phosphatase 79 U/L (38-126); Anion Gap 7 mmol/L (4-12); Aspartate Amino Transferase 41 U/L (17-59); Bilirubin,Total 0.5 mg/dL (0.2-1.3); Blood Urea Nitrogen 18 mg/dL (9-20); Calcium 9.4 mg/dL (8.4-10.2); Carbon Dioxide 27 mmol/L (22-30); Chloride 105 mmol/L (98-107); Cholesterol 103 mg/dL (0-200); Estimated Glomerular Filt Rate > 60; Glucose 94 mg/dL (65-110); HDL Direct 28 mg/dL; Potassium 4.6 mmol/L (3.4-5.0); Sodium 139 mmol/L (137-145); Triglycerides 109 mg/dL (<150); Uric Acid 3.9 mg/dL (3.5-8.5)
[2024-08-14 09:36] LABS: LDL Cholesterol Direct 53 mg/dL
[2024-08-14 09:56] LABS: Prostate Specific Antigen 0.7 ng/mL (< OR = 4.0)
== END 2024-08-14 08:36 | disposition home or self-care (01) ==
LOC: ANHLAB 08:36
PROVIDERS: PCP Family Medicine; Visit Provider Nurse Practitioner Family
DX: Z13.29 Encounter for screening for other suspected endocrine disorder (principal); Z13.1 Encounter for screening for diabetes mellitus; Z12.5 Encounter for screening for malignant neoplasm of prostate; Z13.0 Encounter for screening for diseases of the blood and blood-forming organs and certain disorders involving the immune mechanism; Z68.36 Body mass index [BMI] 36.0-36.9, adult; E78.5 Hyperlipidemia, unspecified; I10 Essential (primary) hypertension; E53.8 Deficiency of other specified B group vitamins; E79.0 Hyperuricemia without signs of inflammatory arthritis and tophaceous disease
CPT/HCPCS: 36415; 80053; 80061; 81003; 82607; 83036; 84153; 84443; 84550; 85025; G0103

== ENCOUNTER 2024-08-20 08:53 | Outpatient (CLI) | payer OTHER, SELFPAY ==
--- NOTE | ~2024-08-20 | CT_ITS ---
CT of the Abdomen: Indication: Abdominal pain Technique: 2.5 mm axial scans were obtained through the abdomen following intravenous administration of 100 cc of Omnipaque 350. Dose reduction technique was used on this scan by utilizing automated ex posure control and iterative reconstruction technique. The dose-length product (DLP) was 1081.37 mGy- cm. Findings: Scans through the lung bases are unremarkable. The liver, spleen, pancreas, gallbladder, adrenals and kidneys are within normal limits. There are mi ld to moderate atherosclerotic calcifications of the aorta. No lymphadenopathy. Visualized bowel loops are unremarkable. No ascites. 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 Impression: No acute abnormalities seen. Reviewed, dictated and finalized at location M. Impression: No acute abnormalities seen.
--- OUTSIDE RECORDS SUMMARY | 2024-08-20 09:40 | XMS_ITS | Continuity of Care Document ---
Author Organization [facility], [facility] Address [address] [place] [address] Phone Care Team Providers Care Bee Raiser Name Role Phone Dwaine NGUYEN, Salvador Unavailable Unavailable Advance Directives Directive Yes / No Effective Date File Name No Information Encounters Encounter Description Practice Location Reason(s) For Visit Diagnoses Date Provider Providers Copied on Encounter [facility], [facility], [address] [place] [address], [id number], [place] tel:[phone] [facility] No Information Dwaine Franco. [address] [place] [address], [id number], [place]. tel:[phone] Family History Family Member Type Diagnosis Age At Onset No Information Payers Payer name Insurance type Covered green party ID Authoriza tion(s) No Information Social [...]
--- OUTSIDE RECORDS SUMMARY | 2024-08-20 09:40 | XMS_ITS | Clinical Summary ---
Author Organization [facility] Address [address] [place] [address] Phone Care Team Providers Care Cupola Charger Insulation Name Role Phone Unavailable Primary Care Provider [...] 3 Tablets 15 Tablet 03/10/2023 12:12 PM HIGH WIRE ARTIST 03/10/2023 Active atorvastatin (LIPITOR) 80 mg tablet [...] 37 C (98.6 F) 03/10/2023 8:50 AM HIGH WIRE ARTIST Respiratory Rate 17 03/10/2023 8:50 AM HIGH WIRE ARTIST Oxygen Saturation 95% 11/29/2023 9:3 8 AM CDT Inhaled Oxygen Concentration - - Weight 111.1 kg (245 lb) 06/03/2023 2:3 3 PM HIGH WIRE ARTIST Height 182.9 cm (6') 06/03/2023 2:33 PM HIGH WIRE ARTIST Body Mass Index 33.23 06/03/2023 2:33 PM HIGH WIRE ARTIST Plan of Treatment Upcoming Encounters Date Type Department Care Team (Late st Contact Info) Description 11/27/2024 9:00 AM CDT Appointment [facility] Supp Svcs Blood Flow [address] [place] [address] Divina Chapa APN [address] [facility] [address] [place] [address] 11/27/2024 9:45 AM CDT Office Visit [facility] Blueprint Processor [facility] [address] [facility] chance [address] [place] [address] Divina Chapa APN [address] [facility] [address] [place] [address] Uche John MD [address] [facility] [address] [place] [address] Health Maintenance Due Date Last [...] Additional history exists COVID-19 Vaccine (2 - 2023- 5 season) 2024 07/16/2020 Insurance Seg[employer] O OPEN ACCESS RX [facility] [employer] RX DUQUE PLANS (INTERNAL) [facility] Internal Plans Advance Directives For more information, please contact: [phone] * Full Code (Latest Code Status on File) Date Activated Date Inactivated Comments 03/06/2023 5:04 PM 03/10/2023 2:24 PM * Full Code Date Activated Date Inactivated Comments 03/03/2023 3:01 AM 03/05/2023 5:06 PM
--- OUTSIDE RECORDS SUMMARY | 2024-08-20 09:40 | XMS_ITS | Encounter Summary ---
Author Organization [facility] Address [address] [facility] [place] [address] Care Team Providers Care C Web Developer Name Role Phone Unavailable Primary Care Provider Unavailabl e Encounter Details Date Type Department Care Team (Late st Contact Info) Description 04/10/2024 Lab Requisition 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 - Received: 04/10/2024 03:57 PM DermPath Lab Pathologist: Arturo eMans MD Specimens: A) - Skin, left forearm proximal B) - Skin, left forearm distal 4 4:18 PM SPECIAL MACHINE OPERATOR DERMATOPATHOLOGY LABORATORY Final Diagnosis Specimen A. SKIN, left forearm proximal: HYPERTROPHIC ACTINIC KERATOSIS, LICHENOID (L57.0) Specimen B. SKIN, left forearm distal: ACTINIC KERATOSIS, LICHENOID (L57.0) 4 4:18 PM [facility] DERMATOPATHOLOGY LABORATORY Clinical History A-B: NMSC 4 4:18 PM [facility] DERMATOPATHOLOGY LABORATORY Gross Description Specimen A: Received [...] measuring 8x7x1 mm. Jar 0. 4:18 PM [facility] DERMATOPATH[facility]ORAT[facility] Microscopic Description Specimen A. SKIN, [...] and some basal vacuolar alteration. 4:18 PM [facility] DERMATOPATH[facility]ORAT[facility] Disclaimer An external and internal positive and negative controls are appropriate for the histochemical, immunohistochemical and immunofluorescence stain(s) in this case (if any), except where stated explicitly. The performance characteristics of the stain(s) cited in this report were developed and its performance characteristic determined by the Dermatopathology Laboratory at [facility], directed by Dr. Chino Means. These tests need not be, and therefore are not, approved by the [place] Food and Drug Administration. The tests are used for clinical purposes. Billing Codes Specimen Charges Stain Charges 28561 52381 1 1 4 4:18 PM [facility] DERMATOPATH[facility]ORAT[facility] Embedded Images 4 4:18 PM [facility] Pathology/Cytology TISSUE SPECIMEN FROM SKIN / Unknown 04/10/2024 10:21 AM SPECIAL MACHINE OPERATOR 04/10/2024 3:57 PM [facility] Miscellaneous samples (specimen) TISSUE SPECIMEN FROM SKIN / Unknown 04/10/2024 10:21 AM SPECIAL MACHINE OPERATOR 04/10/2024 3:57 PM SPECIAL MACHINE OPERATOR us Ольга Malik DO LAB - PATHOLOGY/CYTOLOGY ORDERABLES Final Result DERMATOPATHOLOGY LABORATORY [facility] - Department of Dermatology [facility] Specialized Medicine [address] [place] [address], [address] [phone] documented in this encounter Visit Diagnoses Not on filedocumented in this encounter
--- OUTSIDE RECORDS SUMMARY | 2024-08-20 09:40 | XMS_ITS | Clinical Summary ---
Author Organization [facility] Address [address] [place] [address] Care Team Providers Care Glue Specialty Supervisor Name Role Phone Unavailable Primary Care Provider Unavailabl e Source Comments [facility],non-owned Affiliates and Associated Physician Practices is amultiple site organization consisting of ambulatory clinics and hospital sitesin [place], [place], [place] and [place]. This disclosure is being madepursuant to the Care Everywhere program and may not contain all information available regarding this patient. 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
== END 2024-08-20 08:54 | disposition home or self-care (01) ==
PROVIDERS: PCP Family Medicine; Visit Provider Nurse Practitioner Family
DX: R10.9 Unspecified abdominal pain (principal); R10.33 Periumbilical pain
CPT/HCPCS: 74160; Q9967

== ENCOUNTER → 2024-11-19 11:54 | Outpatient (CLI) | payer OTHER, SELFPAY ==
--- NOTE | ~2024-11-19 | XR_ITS ---
XR cervical spine 4-5V 11/19/2024 12:10 Indication: Cervicalgia Procedure: 5 views cervical spine Comparison: No prior studies for comparison. Findings: Vertebral body heights are maintained. There is diffuse idiopathic skeletal hyperostosis (D TAYLA) of the cervical spine. No acute fracture, subluxation or dislocation. There is multilevel uncina te and facet hypertrophy. Lung apices are normal. Odontoid process is normal. Impression: 1: Moderate cervical spondylosis with bulky ventral bridging osteophytes. Reviewed, dictated and finalized at location A. Impression: 1: Moderate cervical spondylosis with bulky ventral bridging osteophytes.
--- OUTSIDE RECORDS SUMMARY | 2024-11-19 11:58 | XMS_ITS | Continuity of Care Document ---
Author Organization [facility], [facility] Address [address] [place] [address] Phone Care Team Providers Care Threading Machine Tender Name Role Phone Dwaine NGUYEN, Salvador Unavailable Unavailable Advance Directives Directive Yes / No Effective Date File Name No Information Encounters Encounter Description Practice Location Reason(s) For Visit Diagnoses Date Provider Providers Copied on Encounter [facility], [facility], [address] [place] [address], [id number], [place] tel:[phone] [facility] No Information Dwaine Franco. [address] [place] [address], [id number], [place]. tel:[phone] Family History Family Member Type Diagnosis Age At Onset No Information Payers Payer name Insurance type Covered constitution party ID Authoriza tion(s) No Information Social [...]
--- OUTSIDE RECORDS SUMMARY | 2024-11-19 11:58 | XMS_ITS | Clinical Summary ---
Author Organization [facility] Address [address] [place] [address] Phone Care Team Providers Care Radio Survey Worker Name Role Phone Unavailable Primary Care Provider [...] 3 Tablets 15 Tablet 03/10/2023 12:12 PM BEATER ROOM HELPER 03/10/2023 Active atorvastatin (LIPITOR) 80 mg tablet [...] 09/16 Overview (06/03/2023): MAGGIE in LCX 08/2009 Family History Medical History Relation Name Comments Heart Disease Father Colon Cancer Mother Hypertension Mother Relation Name Status Comments Father Mother Social History Tobacco Use Types Packs/Day Years Used Date Smoking Tobacco: Never Smokeless Tobacco: Never Tobacco Cessation:Counseling Given: Not Answered Alcohol Use Standard Drinks/Week Comments Not Currently 0 (1 standard drink = 0.6 oz pur e alcohol) Sex and Gender Information Value Date Recorded [...] 37 C (98.6 F) 03/10/2023 8:50 AM BEATER ROOM HELPER Respiratory Rate 17 03/10/2023 8:50 AM BEATER ROOM HELPER Oxygen Saturation 95% 11/29/2023 9:3 8 AM CDT Inhaled Oxygen Concentration - - Weight 111.1 kg (245 lb) 06/03/2023 2:3 3 PM BEATER ROOM HELPER Height 182.9 cm (6') 06/03/2023 2:33 PM BEATER ROOM HELPER Body Mass Index 33.23 06/03/2023 2:33 PM BEATER ROOM HELPER Plan of Treatment Upcoming Encounters Date Type Department Care Team (Late st Contact Info) Description 11/27/2024 9:00 AM CDT Appointment [facility] Supp Svcs Blood Flow [address] [place] [address] Divina Chapa APN [address] [facility] [address] [place] [address] 11/27/2024 9:45 AM CDT Office Visit [facility] Fence Making Machine Operator [facility] [address] [facility] [address] [place] [address] Divina Chapa APN [address] [facility] [address] [place] [address] Uche John MD [address] [facility] [address] [place] [address] Health Maintenance Due Date Last Done Comments DTAP/TDAP/TD VACCINES (1 - Tdap) 1980 FIT-DNA Q 3 years 2006 FIT/FOBT Q 1 year 2006 Flex Sig/CT Colonography Q 5 years 2006 ZOSTER VACCINE (1 of 2) 2011 RSV VACCINE (60+ or ) (1 - Risk 60-74 years 1-dose series) 2021 COLORECTAL SCREENING 09/18/2022 09/18/2012 Colorectal Cancer Screening 09/18/2022 COVID-19 Vaccine (2 - 2023-2 5 season) 2024 07/16/2020 INFLUENZA VACCINE (#1) 2024 , 01/15/2020, 01/23/2013, Additional history exists Insurance [facility] [address] BENEFIT PLANS RX [facility] [employer] RX DUQUE PLANS (INTERNAL) [facility] Internal Plans Advance Directives For more information, please contact: [phone] * Full Code (Latest Code Status on File) Date Activated Date Inactivated Comments 03/06/2023 5:04 PM 03/10/2023 2:24 PM * Full Code Date Activated Date Inactivated Comments 03/03/2023 3:01 AM 03/05/2023 5:06 PM
--- OUTSIDE RECORDS SUMMARY | 2024-11-19 11:58 | XMS_ITS | Encounter Summary ---
Author Organization [facility] Address [address] [facility] [place] [address] Care Team Providers Care Bellhop Name Role Phone Unavailable Primary Care Provider Unavailabl e Encounter Details Date Type Department Care Team (Late st Contact Info) Description 04/10/2024 Lab Requisition [facility] - DermPath Lab [address] [facility], [place] [address] Ольга Malik DO [address] [facility] 3 [place] [address] Social History Tobacco Use Types Packs/Day Years Used Date Smoking Tobacco: Never Assessed Sex and Gender Information Value Date Recorded Sex Assigned at Not on file Legal Sex Male 10:50 AM NUTRITIONIST Gender Identity Not on file Sexual Orientation Not on file documented as of this encounter Plan of Treatment Not on file documented as of this encounter Procedures Procedure Name Priority Date/Time Associated Diagnosis Comments DERMATOPATHOLOGY Routine 04/10/2024 10:2 1 AM NUTRITIONIST documented in this encounter Results * DERMATOPATHOLOGY (04/10/2024 10:21 AM NUTRITIONIST) Case Report Dermatopathology Report Case: [id number] Authorizing Provider: Ольга Malik DO Collected: 04/10/2024 10:21 AM Ordering Location: [facility] - Received: 04/10/2024 03:57 PM DermPath Lab Pathologist: Arturo Means MD Specimens: A) - Skin, left forearm proximal B) - Skin, left forearm distal 4 4:18 PM NUTRITIONIST DERMATOPATHOLOGY LABORATORY Final Diagnosis Specimen A. SKIN, left forearm proximal: HYPERTROPHIC ACTINIC KERATOSIS, LICHENOID (L57.0) Specimen B. SKIN, left forearm distal: ACTINIC KERATOSIS, LICHENOID (L57.0) 4 4:18 PM [facility] DERMATOPATHOLOGY LABORATORY at [address] NUTRITIONIST Clinical History A-B: NMSC 4 4:18 PM [facility] DERMATOPATHOLOGY LABORATORY Gross Description Specimen A: Received [...] 8x7x1 mm. Jar 0. 4 4:18 PM [facility] DERMATOPATHOLOGY LABORATORY Microscopic Description Specimen A. SKIN, [...] some basal vacuolar alteration. 4 4:18 PM [facility] DERMATOPATHOLOGY LABORATORY Disclaimer An external and internal positive and negative controls are appropriate for the histochemical, immunohistochemical and immunofluorescence stain(s) in this case (if any), except where stated explicitly. The performance characteristics of the stain(s) cited in this report were developed and its performance characteristic determined by the Dermatopathology Laboratory at [facility], directed by Dr. Chino Means. These tests need not be, and therefore are not, approved by the [place] Food and Drug Administration. The tests are used for clinical purposes. Billing Codes Specimen Charges Stain Charges 58545 53692 1 1 4 4:18 PM [facility] DERMATOPATHOLOGY LABORATORY Embedded Images 4 4:18 PM [facility] DERMATOPATHOLOGY LABORATORY Pathology/Cytology TISSUE SPECIMEN FROM SKIN / Unknown 04/10/2024 10:21 AM NUTRITIONIST 04/10/2024 3:57 PM [facility] Miscellaneous samples (specimen) TISSUE SPECIMEN FROM SKIN / Unknown 04/10/2024 10:21 AM NUTRITIONIST 04/10/2024 3:57 PM NUTRITIONIST us Ольга Malik DO LAB - PATHOLOGY/CYTOLOGY ORDERABLES Final Result DERMATOPATHOLOGY LABORATORY [facility] - Department of Dermatology [facility] Specialized Medicine [address] [place] [address], [address] [phone] documented in this encounter Visit Diagnoses Not on filedocumented in this encounter
--- OUTSIDE RECORDS SUMMARY | 2024-11-19 11:58 | XMS_ITS | Clinical Summary ---
Author Organization [facility] Address [address] [place] [address] Care Team Providers Care Digital Marketing Strategist Name Role Phone Unavailable Primary Care Provider Unavailabl e Source Comments [facility],non-owned Affiliates and Associated Physician Practices is amultiple site organization consisting of ambulatory clinics and hospital sitesin [place], [place], [place] and [place]. This disclosure is being madepursuant to the Care Everywhere program and may not contain all information available regarding this patient. 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
== END ==
PROVIDERS: PCP Nurse Practitioner Family; Visit Provider Nurse Practitioner Family
DX: M47.22 Other spondylosis with radiculopathy, cervical region (principal)
CPT/HCPCS: 72050

== ENCOUNTER 2025-01-03 14:00 | Outpatient (RCR) | payer OTHER, SELFPAY ==
--- NOTE | 2024-12-12 14:24 | OPREHPOC ---
Outpatient Therapy Plan of Care This is a Multidisciplinary Plan of Care that may contain components documented by all disciplines (PT, OT, and ST.) PT Problem 1 PT Problem #1 Knowledge Deficit PT Goal 1 Goal / Goal Update 1* independent with HEP 2* pt maintain good posture with exercises Target Visit 8 PT Problem 2 PT Problem #2 Pain PT Goal 1 Goal / Goal Update 1* pt reports pain rating at worst of 4/10 2* radicular pain into L UE to elbow at worst 3* pt report with sleeping, awaken 1x/night due to pain Target Visit 8 PT Problem 3 PT Problem #3 Impaired Range of Motion PT Goal 1 Goal / Goal Update increase cervical rotation to improve ability to drive and do tasks 1* rotation R 70' 2* rotation L 70' No pain reported with 3 reps: 3* rotation R 4* rotation L 5* L shoulder IR Target Visit 8 PT Problem 4 PT Problem #4 Impaired Strength PT Goal 1 Goal / Goal Update * increase scapular/thoracic strength to 4/5, to improve position and posture Target Visit 8
--- NOTE | 2024-12-12 14:24 | PTOPEVAL1 ---
Assessment and note entered by Sandrine Holm, PT Evaluation Information Assessment Status Evaluation ICD-10 Condition Codes (PT) Cervicalgia M54.2,Radiculopathy, cervical M54.13 Onset September 2024 Subjective Information woke up one AM and neck hurting; have had neck pain in the past, but it did not last; now into L arm to fingers at times; prednisone --taking now, has helped some; R hand dominant; x ray: cervical moderate spondylosis with osteophytes; thoracic spine- degenerative changes ; saw chiropractor-- did neck and shoulder adjustments and they did not help; go to chiropractor for monthly tune ups 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, 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 with more pain Reported Pain Level Pain Score Self Report Additional Pain Score Comments pain range in the past week 0-9/10; cervical and into L UE to fingers numb/tingle intermittent 45% of the day; increase pain: looking up at monitor during mu-ism service, more physical work-- mow yard decrease pain: change positions, stretch shoulders with hands behind head; chin down prednisone has helped; heat, ice not really helped; sleep awaken 2-3x/night, change positions and return to sleep Assessment PT Clinical Summary Juan F has the diagnosis of cervical pain and intermittent, radicular pain into L UE to fingers. Self assessment with Neck Index rating of 10% limitation in activity level. He is able to do all of his home and work tasks, with more pain. The prednisone has decreased his pain, but numbness still present. He is R hand dominant. The xray report states cervical moderate spondylosis and osteophytes and thoracic with degenerative changes. With the evaluation: decreased cervical rotation to R and L, both increase pain; cervical extension and L shoulder IR also increase pain; poor posture of neck and shoulder/scapula, with weakness over scapular musculature; muscle tightness and spasms over cervical and upper traps . Skilled PT services are indicated for modalities to decrease pain and spasms, therapeutic exercises to improve posture and flexibility of neck and education for HEP and posture/body mechanics. Plan of Care Interventions Electrical Stimulation,Hot Pack/Cold Pack,Manual Therapy,Mechanical Traction,Neuro Re-education, Patient/Caregiver Education,Therapeutic Activities ,Therapeutic Exercise,Ultrasound,Other Other Interventions taping PT Services Indicated Yes Treatment Frequency and 1-2x/wk for 8 visits Duration These treatments will address the objective and functional deficits as defined above. The patient will be advanced safely and appropriately in order for the patient to progress towards his/her prior level of function. Additional exercises will be introduced and as well as a comprehensive home exercise program upon discharge, if needed, ?to ensure carryover of functional gains achieved in the clinic. This treatment plan has been reviewed and agreement upon by the patient.
--- NOTE | 2025-01-03 16:56 | PTOPDC ---
Assessment and note entered by Yady Morales, PT Evaluation Information Assessment Status Discharge ICD-10 Condition Codes (PT) Cervicalgia M54.2,Radiculopathy, cervical M54.13 Onset September 2024 Subjective Information Reports not having any tingling sensation or any issues in the last 3 weeks. States the traction and exercises helped alot. Reported Pain Level Pain Score 0: Self Report Assessment PT Clinical Summary Pt received a total of 4 treatment sessions and reports complete resolution of pain and improved mobility to cervical spine and B shoulders. Has met established goals and scored 0 for Neck Disability Index indicating no disability/activity limitation. HEPs include flexibility and strengthening exercises to maintain gains. Skilled PT discontinued at this time. Plan of Care PT Services Indicated No
== END 2025-01-04 08:57 | disposition home or self-care (01) ==
LOC: ANHPT 14:00
PROVIDERS: PCP Nurse Practitioner Family; Visit Provider Nurse Practitioner Family
DX: M54.12 Radiculopathy, cervical region (principal); M54.2 Cervicalgia
CPT/HCPCS: 97012; 97035; 97110; 97140; 97161; 97530; 97750

== ENCOUNTER 2025-01-29 13:06 | Outpatient (CLI) | payer OTHER, SELFPAY ==
--- OUTSIDE RECORDS SUMMARY | 2025-01-29 13:22 | XMS_ITS | Clinical Summary ---
Author Organization [facility] Address [address] [place] [address] Care Team Providers Care Senior Painter Name Role Phone Unavailable Primary Care Provider Unavailabl e Source Comments [facility],non-owned Affiliates and Associated Physician Practices is amultiple site organization consisting of ambulatory clinics and hospital sitesin [place], [place], [place] and [place]. This disclosure is being madepursuant to the Care Everywhere program and may not contain all information available regarding this patient. 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 Gender Identity Not on file Sexual Orientation [...] 2011 ZOSTER VACCINE (1 of 2) 2011 DEPRESSION SCREENING 05/02/2024 COVID-19 VACCINE (1 - 2023-2 5 season) 2024 INFLUENZA VACCINE (#1) 2024 Respiratory Syncytial Virus [...] age to complete this topic Insurance [facility] Address: [address] [address] [facility] Address: [address] [address] SELF PAY NO INSURANCE Member Subscriber Plan / Payer (Ef fective for All Dates) Name:Paula Perrin Member ID:Not on file Relation to Subscriber:Not on file Name:PAULA PERRIN Subscriber ID:Not on file (Home) Address: [address] [place] [phone] Payer ID:Not on file Group ID:Not on file Type:Self Pay Address: [place], [place]
--- OUTSIDE RECORDS SUMMARY | 2025-01-29 13:22 | XMS_ITS | Patient Health Record ---
Author Organization [facility] Address [address] [place] [address] Support Name Relationship Address Phone Natividad Anselmo Guarantor Unknown Reason For Referral No Information Medications Medication SIG (Take, Route, Frequency, Duration) Notes Start Date End Date Status Lisinopril 20 MG Oral Daily; Duration : 0 1 (one) TABLET qDay (Daily) ORAL 09/22/2011 Active traMADol HCl 50 MG Oral every 8 hours; Duration: 0 take 1 (one) Tablet by Oral route every 8 hours as needed pain 09/07/2016 Active Simvastatin 10 MG Oral daily; Duration : 0 take 1 (one) Tablet by Oral route daily 03/02/2016 Active Aleve 220 MG Oral two times per day; Duration: 0 take 1 (one) Tablet by Oral route two times per day 09/07/2016 Active Problems Problem Type SNOMED Code ICD Code Onset Dates Problem Status W/U Status Risk Notes Problem Primary osteoarthritis (407383768) Unilateral primary osteoarthritis of knee (right) (M17.11) 03/02/20 16 Active confirmed Problem Achilles bursitis (198898715) Achilles Tendinitis/ (726.71) 06/01/19 13 Active confirmed Problem Traumatic arthropathy of the ankle and/or foot (413735567) 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) 09/22/19 12 Active confirmed Plan Of Treatment No Information Insurance Providers Payer Name Payer Address Payer Phone Subscriber Number Group Number Insured Name Patient Relationship to Insured Coverage Start Date Coverage End Date [facility] PPO [address] [place], [place] [id number] Anselmo Henson Self - patient is the insured 7 [employer] [address] [place] [address] [id number] Anselmo Henson Self - patient is the insured 3 3 [facility] Core [address] [address] [place] [address] [id number] Anselmo Henson Self - patient is the insured 6 7 [employer] PPO [address] [address] [place] [address] [id number] Anselmo Henson Self - patient is the insured 1 3 Medical (General) History Surgical History Surgery Date(Month/Year) Surgery Ankle surgery Achill es repair Right 08/2012 Dr Barron; Left Ankle scope 04/2012 General Surgery General surgery cardiac stent 2009 Orthopedic History of orthopedic surgery : left leg orif General Surgery general surgery cardiac stent 2009
--- OUTSIDE RECORDS SUMMARY | 2025-01-29 13:22 | XMS_ITS | Clinical Summary ---
Author Organization [facility] Address [address] [place] [address] Phone Care Team Providers Care Animal Eviscerator Name Role Phone Unavailable Primary Care Provider [...] 3 Tablets 15 Tablet 03/10/2023 12:12 PM WEB MERCHANDISER 03/10/2023 Active atorvastatin (LIPITOR) 80 mg tablet 05/10/2023 Active amoxicillin-cla vulanate (AUGMENTIN) 875-125 mg tablet 05/30/2023 Active ascorbic acid, vitamin C, (VITAMIN C) 1,000 mg Tablet Take by mouth. Active allopurinoL (ZYLOPRIM) 100 mg tablet Take 1 Tablet by mouth 3 times daily. 10/13/2023 Active amLODIPine (NORVASC) 10 mg tablet Take 1 Tablet by mouth daily. 11/09/2024 Active cyclobenzaprine (FLEXERIL) 10 mg tablet 10 MG ORALLY TWICE A DAY NEEDED FOR MUSCLE SPASM 11/05/2024 Active predniSONE (DELTASONE) 20 mg tablet Take 40 mg by mouth daily in the morning. 11/19/2024 Active Active Problems Problem Noted Date Diagnosed [...] Encounters Date Type Department Care Team Description 11/27/2024 9:45 AM CDT Office Visit [facility] Dou[facility] [address] [place] [address] Divina Martínez APN Westfall, Scott, MD Carotid stenosis, right (Primary Dx) 11/27/2024 8:26 AM CDT - 11/27/2024 11:59 PM CDT Hospital Encounter [facility] Blood Flow [address] [place] [address] Divina Martínez APN Discharge Disposition: Home or Self Care from Last 3 Months Family History Medical [...] Sign Reading Time Taken Comments Blood Pressure 122/73 11/27/2024 9:10 AM CDT Pulse 59 11/29/2023 9:38 AM CDT Temperature 37 C (98.6 F) 03/10/2023 8:50 AM WEB MERCHANDISER Respiratory Rate 17 03/10/2023 8:50 AM WEB MERCHANDISER Oxygen Saturation 95% 11/29/2023 9:38 AM CDT Inhaled Oxygen Concentration - - Weight 122.5 kg (270 lb) 11/27/2024 9:10 AM CDT Height 182.9 cm (6') 11/27/2024 9:10 AM CDT Body Mass Index 36.62 11/27/2024 9:10 AM CDT Plan of Treatment Upcoming Encounters Date Type Department Care Team (Late st Contact Info) Description 11/26/2025 8:00 AM CDT Appointment [facility] Blood Flow [address] [place] [address] Uche John MD [address] [place] [address] 11/26/2025 9:15 AM CDT [facility] [address] [place] [address] Uche John MD [address] [place] [address] Health Maintenance Due Date Last Done Comments DTAP/TDAP/TD VACCINES (1 - Tdap) 1980 FIT-DNA Q 3 years 2006 FIT/FOBT Q 1 year 2006 Flex Sig/CT Colonography Q 5 years 2006 ZOSTER VACCINE (1 of 2) 2011 RSV VACCINE (60+ or ) (1 - Risk 60-74 years 1-dose series) 2021 COLORECTAL SCREENING 09/18/2022 09/18/2012 Colorectal Cancer Screening 09/18/2022 INFLUENZA VACCINE (#1) 2024 , 01/15/2020, 01/23/2013, Additional history exists COVID-19 Vaccine (4 - 2024-2 6 season) 2024 02/26/2022, 03/31/2021, 07/16/2020 Pre-Diabetes and Diabetes Screening 03/02/2026 03/02/2023 Procedures Procedure Name Priority Date/Time Associated Diagnosis Comments US CAROTID DOPPLER Routine 11/27/2024 10 :01 AM CDT Carotid stenosis, right HEMOGLOBIN A1C Routine 03/02/2023 9:16 PM CDT from Last 3 Months or Most Recently Relevant to Health Maintenance Results * US CAROTID DOPPLER (11/27/2024 10:01 AM CDT) Anatomical Region Laterality Modality Neck Ultrasound 11/27/2024 8:35 AM CDT Narrative 11/28/2024 11:13 AM CDT [address] [address] [email or web address] Cerebrovascular Exam Carotid Duplex Patient: Anselmo Henson Study ID: [id number] Gender: Arturo : 1960 Age: 64 Race: CAU Height 182.9cm Study Date: 11/27/2024 Weight: 111.1kg Access. #: [id number] *Referring Physician:Divina Gonzales Denise J *Ordering Physician:* Divina ChapaProperty Caretaker:Kallie Ying Laina History: Known carotid disease. PMH: Prior study from 11/29/23 is available for comparison. Prior R ICA results: 0-49 Prior L ICA results: 0-49 Risk factors: Hypertension. Hyperlipidemia. Coronary artery disease. Study data: [facility] Study status: Routine. Procedure: A vascular evaluation was performed. Image quality was good. Carotid duplex study was performed using real-time imaging coupled with Doppler flow analysis. Carotid duplex study. Complete study and Doppler flow study including spectral analysis, color and tarango scale imaging. Birthdate: Patient birthdate: 1960. Age: Patient is 64year(s) old. Sex: gender: male. Height: 182.9cm. 72in. Weight: 111.1kg. : 245lb. Body mass index: BMI: 33.2kg/m^2. Body surface area: BSA: 2.41m^2. Study date: Study date: 11/27/2024. Study time: 08:35 AM. Location: Vascular laboratory. Patient status: Outpatient. Impressions - Study data: Prior study from 11/29/23 is available for comparison. - Right internal carotid: There is calcific plaque. Stenosis: There is a 50-69% stenosis. - Left internal carotid: There is calcific plaque. Stenosis: There is a 0-49% stenosis. The bilateral vertebral arteries are patent with normal antegrade flow. Aorta and systemic arteries: Right internal carotid: There is calcific plaque. Stenosis: There is a 50-69% stenosis. The lesion is worsened from the prior study. Left internal carotid: There is calcific plaque. Stenosis: There is a 0-49% stenosis. Tables: Arterial flow: + +-----+----+ !Location !V sys!V ed! + +-----+----+ !Right CCA - proximal!136 !28.6! + +-----+----+ !Right CCA - distal !126 !33.8! + +-----+----+ !Right ICA - proximal!187 !46.6! + +-----+----+ !Right ICA - mid !108 !27.3! + +-----+----+ !Right ICA - distal !70.1 !18.2! + +-----+----+ !Right ECA !-218 !35.7! + +-----+----+ !Right vertebral !47.4 !13.2! + +-----+----+ !Left CCA - proximal !162 !34 ! + +-----+----+ !Left CCA - distal !119 !30.7! + +-----+----+ !Left ICA - proximal !110 !37.8! + +-----+----+ !Left ICA - mid !122 !32.9! + +-----+----+ !Left ICA - distal !70.8 !23.8! + +-----+----+ !Left ECA !207 !42.7! + +-----+----+ !Left vertebral !77.7 !18.6! + +-----+----+ *Velocities are expressed in cm/s, Diameters are expressed in cm Velocity ratios: + +-----+-----+ ! !R PSV!L PSV! + +-----+-----+ !Max ICA/distal CCA!1.48 !1.03 ! + +-----+-----+ Prepared and Electronically Authenticated Uche John M.D. [id number] Procedure Note Uche John MD - 11/28/[address] [address] [email or web address] Cerebrovascular Exam Carotid Duplex Patient: Anselmo Henson Study ID: [id number] Gender: Arturo : 1960 Age: 64 Race: GLENIS Height 182.9cm Study Date: 11/27/2024 Weight: 111.1kg Access. #: [id number] *Referring Physician:Divina Gonzales, Divina J *Ordering Physician:* Divina ChapaProperty Caretaker:* Stepan Laina History: Known carotid disease. PMH: Prior study from 11/29/23 is available for comparison. Prior R ICA results: 0-49 Prior L ICA results:0-49 Risk factors: Hypertension. Hyperlipidemia. Coronary artery disease. Study data: New node Study status: Routine. Procedure: A vascular evaluation was performed. Image quality was good. Carotid duplex studywas performed using real-time imaging coupled with Doppler flow analysis. Carotid duplex study. Complete study and Doppler flow studyincluding spectral analysis, color and tarango scale imaging. Birthdate: Patient birthdate: 1960. Age: Patient is 64year(s) old. Sex: Birthgender: male. Height: 182.9cm. 72in. Weight: 111.1kg. : 245lb. Body massindex: BMI: 33.2kg/m^2. Body surface area: BSA: 2.41m^2. Study date:Study date: 11/27/2024. Study time: 08:35 AM. Location: Vascular laboratory. Patient status: Outpatient. Impressions - Study data: Prior study from 11/29/23 is available for comparison. - Right internal carotid: There is calcific plaque. Stenosis: There is a 50-69% stenosis. - Left internal carotid: There is calcific plaque. Stenosis: There is a0-49% stenosis. The bilateral vertebral arteries are patent with normal antegrade flow. Aorta and systemic arteries: Right internal carotid: There is calcific plaque. Stenosis: There is a50-69% stenosis. The lesion is worsened from the prior study. Left internal carotid: There is calcific plaque. Stenosis: There is a0-49% stenosis. Tables: Arterial flow: + +-----+----+ !Location !V sys!V ed! + +-----+----+ !Right CCA - proximal!136 !28.6! + +-----+----+ !Right CCA - distal !126 !33.8! + +-----+----+ !Right ICA - proximal!187 !46.6! + +-----+----+ !Right ICA - mid !108 !27.3! + +-----+----+ !Right ICA - distal !70.1 !18.2! + +-----+----+ !Right ECA !-218 !35.7! + +-----+----+ !Right vertebral !47.4 !13.2! + +-----+----+ !Left CCA - proximal !162 !34 ! + +-----+----+ !Left CCA - distal !119 !30.7! + +-----+----+ !Left ICA - proximal !110 !37.8! + +-----+----+ !Left ICA - mid !122 !32.9! + +-----+----+ !Left ICA - distal !70.8 !23.8! + +-----+----+ !Left ECA !207 !42.7! + +-----+----+ !Left vertebral !77.7 !18.6! + +-----+----+ *Velocities are expressed in cm/s, Diameters are expressed in cm Velocity ratios: + +-----+-----+ ! !R PSV!L PSV! + +-----+-----+ !Max ICA/distal CCA!1.48 !1.03 ! + +-----+-----+ Prepared and Electronically Authenticated Uche John M.D. [id number] us Divina Chapa APN US ORDERABLES Fi nal Result * HEMOGLOBIN A1C (03/02/2023 9:16 PM CDT) HEMOGLOBIN A1C 5.5 <5.7 % 03/03/2023 3:34 AM CDT [facility] [employer] [facility] EST. AVG GLUCOSE, A1C 111 mg/dL 03/03/2023 3:34 AM CDT [facility] [employer] [facility] Blood Venipuncture / Unknown 03/02/2023 9:16 PM CDT 03/02/2023 9:21 PM CDT Narrative [facility] [employer] [facility] - 03/03/2023 3:34 AM CDT HGB A1C INTERPRETATION NORMAL: <5.7% PRE-DIABETES: 5.7 - 6.4% DIABETES: 6.5% OR GREATER Mayo Campos MD CHEMISTRY ORDERABLES Final Result [facility] [employer] [facility] CLIA# [id number] [address] [place] [address] from Last 3 Months or Most Recently Relevant to [place] [address] [facility] BENEFIT PLANS RX [facility] [employer] RX [employer] PLANS (INTERNAL) [facility] Internal Plans Advance Directives For more information, please contact: [phone] * Full Code (Latest Code Status on File) Date Activated Date Inactivated Comments 03/06/2023 5:04 PM 03/10/2023 2:24 PM * Full Code Date Activated Date Inactivated Comments 03/03/2023 3:01 AM 03/05/2023 5:06 PM
--- OUTSIDE RECORDS SUMMARY | 2025-01-29 13:22 | XMS_ITS | Encounter Summary ---
Author Organization [facility] Address [address] [place] [address] Care Team Providers Care Milling Machine Operator Gear Name Role Phone Unavailable Primary Care Provider Unavailabl e Encounter Details Date Type Department Care Team (Late st Contact Info) Description 04/10/2024 Lab Requisition [facility] - DermPath Lab [address] [place] [address] Ольга Malik DO [address] [facility] [address] [place] [address] Social History Tobacco Use Types Packs/Day Years Used Date Smoking Tobacco: Never Assessed Sex and Gender Information Value Date Recorded Sex Assigned at Not on file Legal 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 Gender Identity Not on file Sexual Orientation Not on file documented as of this encounter Plan of Treatment Not on file documented as of this encounter Procedures Procedure Name Priority Date/Time Associated Diagnosis Comments DERMATOPATHOLOGY Routine 04/10/2024 10:2 1 AM PAPER PRODUCTS INSPECTOR documented in this encounter Results * DERMATOPATHOLOGY (04/10/2024 10:21 AM PAPER PRODUCTS INSPECTOR) Case Report Dermatopathology Report Case: [id number] Authorizing Provider: Ольга Malik DO Collected: 04/10/2024 10:21 AM Ordering Location: [facility] - Received: 04/10/2024 03:57 PM DermPath Lab Pathologist: Arturo Means MD Specimens: A) - Skin, left forearm proximal B) - Skin, left forearm distal 4 4:18 PM PAPER PRODUCTS INSPECTOR DERMATOPATHOLOGY LABORATORY Final Diagnosis Specimen A. SKIN, left forearm proximal: HYPERTROPHIC ACTINIC KERATOSIS, LICHENOID (L57.0) Specimen B. SKIN, left forearm distal: ACTINIC KERATOSIS, LICHENOID (L57.0) 4 4:18 PM [facility] DERMATOPATHOLOGY LABORATORY at 1618 PAPER PRODUCTS INSPECTOR Clinical History A-B: NMSC 4 4:18 PM [facility] DERMATOPATHOLOGY LABORATORY Gross Description Specimen A: [...] 8x7x1 mm. Jar 0. 4 4:18 PM [facility] DERMATOPATHOLOGY LABORATORY Microscopic Description Specimen A. [...] some basal vacuolar alteration. 4 4:18 PM [facility] DERMATOPATHOLOGY LABORATORY Disclaimer An external and internal positive and negative controls are appropriate for the histochemical, immunohistochemical and immunofluorescence stain(s) in this case (if any), except where stated explicitly. The performance characteristics of the stain(s) cited in this report were developed and its performance characteristic determined by the Dermatopathology Laboratory at [facility], directed by Dr. Chino Means. These tests need not be, and therefore are not, approved by the [place] Food and Drug Administration. The tests are used for clinical purposes. Billing Codes Specimen Charges Stain Charges 33136 [id number] 1 1 4 4:18 PM [facility] DERMATOPATHOLOGY LABORATORY Embedded Images 4 4:18 PM [facility] DERMATOPATHOLOGY LABORATORY Pathology/Cytology TISSUE SPECIMEN FROM SKIN / Unknown 04/10/2024 10:21 AM PAPER PRODUCTS INSPECTOR 04/10/2024 3:57 PM [facility] Miscellaneous samples (specimen) TISSUE SPECIMEN FROM SKIN / Unknown 04/10/2024 10:21 AM PAPER PRODUCTS INSPECTOR 04/10/2024 3:57 PM PAPER PRODUCTS INSPECTOR us Ольга Malik DO LAB - PATHOLOGY/CYTOLOGY ORDERABLES Final Result DERMATOPATHOLOGY LABORATORY [facility] - Department of Dermatology [facility] [address] [place] [address], [address] [phone] documented in this encounter Visit Diagnoses Not on filedocumented in this encounter
[2025-01-29 14:23] LABS: Alanine Aminotransferase 46 U/L (6-50); Albumin Level 4.6 g/dL (3.5-5.1); Alkaline Phosphatase 77 U/L (38-126); Anion Gap 10 mmol/L (4-12); Aspartate Amino Transferase 41 U/L (17-59); Bilirubin,Total 0.5 mg/dL (0.2-1.3); Blood Urea Nitrogen 18 mg/dL (9-20); Calcium 9.2 mg/dL (8.4-10.2); Carbon Dioxide 22 mmol/L (22-30); Chloride 109 mmol/L (98-107); Estimated Glomerular Filt Rate > 60; Glucose 112 mg/dL (65-110); Potassium 4.2 mmol/L (3.4-5.0); Sodium 141 mmol/L (137-145); Total Protein 8.5 g/dL (6.3-8.2); Uric Acid 4.8 mg/dL (3.5-8.5)
== END 2025-01-29 13:07 | disposition home or self-care (01) ==
PROVIDERS: PCP Nurse Practitioner Family; Visit Provider Podiatrist Foot & Ankle Surgery
DX: M10.072 Idiopathic gout, left ankle and foot (principal)
CPT/HCPCS: 36415; 80053; 84550

== ENCOUNTER 2025-03-15 10:30 | Outpatient (RCR) | payer OTHER, SELFPAY ==
--- NOTE | 2025-03-01 09:02 | OPREHPOC ---
Outpatient Therapy Plan of Care This is a Multidisciplinary Plan of Care that may contain components documented by all disciplines (PT, OT, and ST.) PT Problem 1 PT Problem #1 Knowledge Deficit PT Goal 1 Goal / Goal Update *independent with HEP Target Visit 8 PT Problem 2 PT Problem #2 Pain PT Goal 1 Goal / Goal Update 1* pt report pain rating at worst of 2/10 2* pt report radicular pain to elbow at worst Target Visit 8 PT Problem 3 PT Problem #3 Impaired Flexibility PT Goal 1 Goal / Goal Update pt perform 3 reps without pain/tightness 1* cervical side bend L 2* cervical flexion Target Visit 8 PT Problem 4 PT Problem #4 Impaired Strength PT Goal 1 Goal / Goal Update increase cervical-thoracic strength to improve posture and positioning: pt stand with slightly rounded shoulders Target Visit 8
--- NOTE | 2025-03-01 09:02 | PTOPEVAL1 ---
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 Neck disability index rating of 4% limitation. He is R hand dominant and able to do all of his usual work and home activity, but with neck tightness. With the evaluation: poor shoulder and neck posture; cervical pain increases with active side bend to L and tightness increase with cervical flexion; decreased cervical rotation ROM to R and L. Skilled PT services are indicated for modalities to decrease pain and spasms; therapeutic exercises to increase cervical flexibility and thoracic strengthening, to improve posture and position, with education for HEP. Plan of Care Interventions Electrical Stimulation,Hot Pack/Cold Pack,Manual Therapy,Mechanical Traction,Patient/Caregiver Education,Therapeutic Activities,Therapeutic Exercise,Ultrasound,Other Other Interventions taping, PT Services Indicated Yes Treatment Frequency and 1-2x/wk for 8 visits Duration These treatments will address the objective and functional deficits as defined above. The patient will be advanced safely and appropriately in order for the patient to progress towards his/her prior level of function. Additional exercises will be introduced and as well as a comprehensive home exercise program upon discharge, if needed, ?to ensure carryover of functional gains achieved in the clinic. This treatment plan has been reviewed and agreement upon by the patient.
--- NOTE | 2025-03-14 13:23 | PCPTNOTE ---
Patient called & cancelled scheduled appointment this date due to attending a .
--- NOTE | 2025-04-05 09:51 | PTOPDC ---
Assessment and note entered by Sandrine Holm, PT Assessment Status Discharge - Pt Not Present ICD-10 Condition Codes (PT) Cervicalgia M54.2,Radiculopathy, cervical M54.13 Onset Jan 30, 2025 Subjective Information pt called and canceled therapy due to feeling better and not need therapy. Assessment PT Clinical Summary Anselmo has received 2 PT sessions and called and canceled 2 appointments. Stated he was feeling better and did not need any therapy. Discharge PT due to pt request. The goals were not assessed. Plan of Care PT Services Indicated No
== END 2025-04-05 11:12 | disposition home or self-care (01) ==
LOC: ANHPT 10:30
PROVIDERS: PCP Nurse Practitioner Family; Visit Provider Family Medicine
DX: M54.12 Radiculopathy, cervical region (principal); M54.2 Cervicalgia
CPT/HCPCS: 97012; 97110; 97140; 97161; 97530